=== PATIENT | female | born 1960 | race Caucasian/White ===

== ENCOUNTER 2024-11-17 14:49 | Inpatient (IN) | payer OTHER, SELFPAY ==
[~2024-11-17] VITALS: Ht 170.2 cm; Wt 66.3 kg
[2024-11-17 15:00] VITALS: PULSE 128; RESP 22; O2SAT 91
--- NOTE | 2024-11-17 15:06 | ED.PDOC ---
SOB-HPI HPI Comments 63y F who presents to the ED via EMS for chief compliant of shortness of breath. Per EMS, pt was at urgent care and came for complaint of shorntess of breath and had vitals checked and noted 02 sat at80% and pt was placed on 4 L via nc and pt sat hannah of 94% and EMS was called to the scene. Pt now in the ED, noted pt has BP of 170/100 and hear rate of 120. Pt states she is having associated cough but otherwise denies any other complaints. Pt denies any other symptoms at this time. 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 all 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 Family History Family History: Family hx of heart amrita Social History Smoker: Cigarettes Alcohol: Occasionally Drugs: Denies Drug Use Lives In: Home Constitutional: denies: chills, diaphoresis, fatigue, fever, malaise, sweats, weakness, others EENTM: denies: blurred vision, double vision, ear bleeding, ear discharge, ear drainage, ear pain, ear ringing, eye pain, eye redness, hearing loss, mouth pain, mouth swelling, nasal discharge, nose bleeding, nose congestion, nose pain, photophobia, tearing, throat pain, throat swelling, voice changes, others Respiratory: reports: cough, shortness of breath; denies: hemoptysis, ortho pnea, SOB at rest, SOB with excertion, stridor, wheezing, others Cardiovascular: denies: chest pain, dizzy spells, diaphoresis, Dyspnea on exertion, edema, irregular heart beat, left arm pain, lightheadedness, palpitations, PND, syncope, others Gastrointestinal: denies: abdomen distended, abdominal pain, blood streaked bowels, constipated, diarrhea, dysphagia, difficulty swallowing, hematemesis, melena, nausea, poor appetite, poor fluid intake, rectal bleeding, rectal pain, vomiting, others Genitourinary: denies: abnormal vagina bleeding, burning, dyspareunia, dysuria, flank pain, frequency, hematuria, incontinence, pain, , vagina discharge, urgency, others Neurological: denies: dizziness, fainting, headache, left sided numbness, left sided weakness, numbness, paresthesia, pre-existing deficit, right sided numbness, right sided weakness, seizure, speech problems, tingling, tremors, weakness, others Musculoskeletal: denies: back pain, gout, joint pain, joint swelling, muscle pain, muscle stiffness, neck pain, others Integumetry: denies: bruises, change in color, change in hair/nails, dryness, laceration, lesions, lumps, rash, wounds, others Allergic/Immunocompromised: denies: Difficulty Healing, Frequent Infections, Hives, Itching, others Hematologic/Lymphatic: denies: anemia, blood clots, easy bleeding, easy bruising, swollen glands, others Endocrine: denies: excessive hunger, excessive sweating, excessive thirst, excessive urination, flushing, intolerance to cold, intolerance to heat, unexplained weight gain, unexplained weight loss, others Psychiatric: denies: anxiety, bipolar disorder, depression, hopeless, panic disorder, schizophrenia, sleepless, suicidal, others All Other Systems: Reviewed and Negative Physical Exam General Appearance: Moderate Distress HEENT: Normal ENT Inspection, Pharynx Normal, TMs Normal Neck: Full Range of Motion, Non-Tender, Normal, Normal Inspection Respiratory: Chest Non-Tender, Decreased Breath Sounds, No Accessory Muscle Use, Respiratory Distress, Wheezing Cardiovascular: No Edema, No JVD, No Murmur, No Gallop, Tachycardia Breast Exam: Deferred Gastrointestinal: No Organomegaly, Non Tender, No Pulsatile Mass, Normal Bowel Sounds, Soft Genitalia: Deferred Pelvic: Deferred Rectal: Deferred Extremities: No calf tenderness, Normal capillary refill, Normal inspection, Normal range of motion, Non-tender, No pedal edema Musculoskeletal : Apperance: Normal Neurologic: Alert, retail office manager II-XII nml as Tested, Motor Weakness, Normal Affect, Normal Mood, No Sensory Deficits Cerebellar Function: Normal Reflexes: Normal Skin: Dry, Normal Color, Warm Lymphatic: No Adenopathy EKG EKG : Pulse Rate (adult): 123 [place]: RAD Cardiac Rhythm: ST Block: None Hypertrophy: LAE ST: Normal Was a procedure done? Was a procedure done?: No Differential Dx Differential Diagnosis: Bronchitis, COPD, Hypertension, Myocardial infarction, Pneumonia, Pulmonary Embolism, Respiratory Distress, URI Comments COVID, Influenza A and B X-Ray, Labs, Meds, VS Vital Signs Date Time Temp Pulse Resp B/P (MAP) Pulse Ox O2 Delivery O2 Flow Rate FiO2 11/17/24 17:40 18 91 Nasal Cannula* 3 32 11/17/24 16:00 99.3 117 17 153/88 (109) 92 99.3 11/17/24 16:00 118 11/17/24 15:06 123 11/17/24 15:04 93 Nasal Cannula* 3 32 11/17/24 15:00 128 22 91 Nasal Cannula* 2 28 11/17/24 15:00 99.3 128 22 179/96 (123) 91 99.3 11/17/24 14:58 123 11/17/24 14:53 97.6 120 26 150/89 (109) 92 97.6 Lab Test 11/17/24 16:17 11/17/24 15:22 Range/Units Influenza Type A Antigen Negative Negative Influenza Type B Antigen Negative Negative SARS-CoV-2 Antigen (Rapid) Negative NEGATIVE White Blood Count 9.9 4.4-10.8 10^3/uL Red Blood Count 5.74 H 4.0-5.20 10^6/uL Hemoglobin 16.6 H 12.2-16.2 g/dL Hematocrit 51.1 H 36.0-46.0 % Mean Corpuscular Volume 89.0 80.0-100.0 fL Mean Corpuscular Hemoglobin 28.9 28.0-32.0 pg Mean Corpuscular Hemoglobin Concent 32.5 32.0-36.0 g/dL Red Cell Distribution Width 14.5 H 11.8-14.3 % Platelet Count 392 140-450 10^3/uL Mean Platelet Volume 7.2 6.9-10.8 fL Neutrophils (%) (Auto) 69.9 37.0-80.0 % Lymphocytes (%) (Auto) 17.7 10.0-50.0 % Monocytes (%) (Auto) 10.6 0.0-12.0 % Eosinophils (%) (Auto) 1.5 0.0-7.0 % Basophils (%) (Auto) 0.3 0.0-2.0 % Neutrophils # (Auto) 6.9 1.6-8.6 10 ^3/uL Lymphocytes # (Auto) 1.7 0.4-5.4 10 ^3/uL Monocytes # (Auto) 1.0 0-1.3 10 ^3/uL Eosinophils # (Auto) 0.2 0-0.8 10 ^3/uL Basophils # (Auto) 0 0-0.2 10 ^3/uL Nucleated Red Blood Cells 0.0 % D-Dimer, Quantitative 0.31 0.0-0.49 mg/L FEU Sodium Level 135 L 136-145 mmol/L Potassium Level 4.9 3.5-5.1 mmol/L Chloride Level 99 98-107 mmol/L Carbon Dioxide Level 31 20-31 mmol/L Anion Gap 5 5-15 Blood Urea Nitrogen 10 9-23 mg/dL Creatinine 0.65 0.550-1.02 mg/dL Glomerular Filtration Rate Calc 100 >90 mL/min BUN/Creatinine Ratio 15.4 10.0-20.0 Serum Glucose 100 74-106 mg/dL Calcium Level 11.3 H 8.7-10.4 mg/dL Troponin I High Sensitivity 22 </=34 ng/L B-Type Natriuretic Peptide 255.88 0-100 pg/mL Current Medications Medications (Trade) Dose Ordered Sig/Teena Route Start Time Stop Time Status Last Admin Methylprednisolone Sodium Succinate (Solu Medrol) 125 mg ONCE ONCE IV 11/17/24 15:00 11/17/24 15:01 DC 11/17/24 15:19 Acetaminophen (Tylenol Tablet) 650 mg ONCE ONCE PO 11/17/24 16:00 11/17/24 16:01 DC 11/17/24 16:08 Sodium Chloride 500 ml @ 500 mls/hr Q1H ONCE IV 11/17/24 17:45 11/17/24 18:44 DC 11/17/24 17:38 Levalbuterol HCl (Xopenex Medneb) 0.625 mg ONCE ONCE NEB 11/17/24 17:45 11/17/24 17:46 DC 11/17/24 18:00 Ipratropium [place] (Atrovent Medneb) 0.5 mg ONCE ONCE NEB 11/17/24 17:45 11/17/24 17:46 DC 11/17/24 18:00 EXAM: XY CHEST PORTABLE IMPRESSION: Mild reactive airways disease. The lungs are otherwise clear. The patient's CBC is within normal limits The chemistry panel is within normal limits The BNP is 255.88 The patient was given Solu-Medrol 125 mg IV push The patient was given acetaminophen 650 mg by mouth The patient was bolused with normal saline The patient was started on Xopenex as well as Atrovent for a breathing The patient is being admitted at this time The patient's diagnosis is acute respiratory failure with exacerbation of COPD The patient remains on oxygen nasal cannula. Images Reviewed?: Images reviewed and evaluated by me Time of 1ST Reevaluation: 15:35 Reevaluation 1ST: Unchanged Patient Education/Counseling: Diagnosis, Treatment Family Education/Counseling: No Family Present Departure 1 Departure Time of Disposition: 21:15 Impression: Primary Impression: Acute respiratory failure Qualified Codes: J96.00 - Acute respiratory failure, unspecified whether with hypoxia or hypercapnia Additional Impression: COPD exacerbation Disposition: ADMITTED INPATIENT Admit to: [facility] Condition: Fair Critical Care Note Critical Care Time?: Yes (45 min-critical care time only) Stability Stability form required: Yes Unstable for transfer: Telemetry monitoring (Telemetry monitoring required), ED Physician Assesment (Clinical assesment) Heart Score Heart Score: Heart Score Response (Comments) Value History Slightly Suspicious 0 EKG Normal 0 Age 45-64 1 Risk Factors No known risk factors 0 Troponin Normal limit 0 Total 1 I personally scribed for DEVIN WEAVER MD ([email or web address]) on 11/17/24 at 15:06. Electronically submitted by Kanika Ayala ([email or web address]). I personally scribed for DEVIN WEAVER MD ([email or web address]) on 11/17/24 at 17:00. Electronically submitted by Kanika Ayala ([email or web address]). DEVIN WEAVER MD Nov 17, 2024 15:06
[2024-11-17] MEDS: methylPREDNISolone SOD SUCC 125 MG/2 ML VL IV ONE (15:19)
--- NOTE | 2024-11-17 15:21 | DVH ---
EXAM: XY CHEST PORTABLE HISTORY: sob COMPARISON: None TECHNIQUE: Portable upright AP view of the chest was performed. FINDINGS: No pneumothorax, consolidative infiltrates, or pulmonary edema. There is mild central peribronchial t hickening. The heart is borderline enlarged. There are bilateral metallic nipple piercings. IMPRESSION: Mild reactive airways disease. The lungs are otherwise clear.
[2024-11-17 15:45] LABS: Basophils # (auto) 0 10 ^3/uL (0-0.2); Basophils % (auto) 0.3 % (0.0-2.0); Eosinophils # (auto) 0.2 10 ^3/uL (0-0.8); Eosinophils % (auto) 1.5 % (0.0-7.0); Hematocrit 51.1 % (36.0-46.0); Hemoglobin 16.6 g/dL (12.2-16.2); Lymphocytes # (auto) 1.7 10 ^3/uL (0.4-5.4); Lymphocytes % (auto) 17.7 % (10.0-50.0); Mean Corpuscular Hemoglobin 28.9 pg (28.0-32.0); Mean Corpuscular Hgb Conc. 32.5 g/dL (32.0-36.0); Monocytes % (auto) 10.6 % (0.0-12.0); Neutrophils # (auto) 6.9 10 ^3/uL (1.6-8.6); Neutrophils % (auto) 69.9 % (37.0-80.0); Platelet Count (auto) 392 10^3/uL (140-450); Red Blood Cells 5.74 10^6/uL (4.0-5.20); Red Cell Distribution Width 14.5 % (11.8-14.3); White Blood Cell 9.9 10^3/uL (4.4-10.8)
[2024-11-17 16:01] LABS: Chloride 99 mmol/L (98-107); Potassium 4.9 mmol/L (3.5-5.1)
[2024-11-17 16:02] LABS: Anion Gap 5 (5-15)
[2024-11-17 16:03] LABS: Calcium 11.3 mg/dL (8.7-10.4); Carbon Dioxide 31 mmol/L (20-31); Sodium 135 mmol/L (136-145)
[2024-11-17 16:07] LABS: BUN/Creatinine Ratio 15.4 (10.0-20.0); Blood Urea Nitrogen 10 mg/dL (9-23); Glucose 100 mg/dL (74-106)
[2024-11-17] MEDS: ACETAMINOPHEN 325 MG TAB PO ONE (16:08)
[2024-11-17 17:05] LABS: COVID19 ANTIGEN SOFIA FIA NEGATIVE (NEGATIVE); Rapid Influenza A Negative (Negative); Rapid Influenza B Negative (Negative)
[2024-11-17] MEDS: SODIUM CHLORIDE 0.9% 500 ML IV ONE (17:38)
--- NOTE | 2024-11-17 17:40 | ECG ---
[facility] Test Date: 2024-11-17 Test Time: 14:55:20 Pat Name: LIBERTY HUYNH Department: ED Room: 0215T Gender: F Service Aide: KASIE : 1960 Requested By: DEVIN WEAVER Order Number: [id number] Reading MD: Theodore Zimmerman Measurements Intervals [place] Rate: 123 P: 78 NV: 150 QRS: 91 QRSD: 94 T: 54 QT: 322 QTc: 461 Interpretive Statements Sinus tachycardia Left atrial enlargement Right axis deviation Minimal ST elevation, lateral leads Electronically Signed On 11-18-2024 9:34:54 PDT by Theodore Zimmerman Please click the below link to view image of tracing.
[2024-11-17] MEDS: LEVALBUTEROL HCL 1.25 MG/3 ML NEB NEB ONE (18:00)
[2024-11-17] MEDS: IPRATROPIUM BROM 0.5 MG/2.5ML INH SOL NEB ONE (18:00)
[2024-11-17] MEDS ORDERED: MORPHINE SULFATE 4 MG/ML SYR/VIAL IV PRN (18:15)
[2024-11-17] MEDS ORDERED: DOCUSATE SOD 100 MG CAP PO PRN (18:15)
[2024-11-17] MEDS ORDERED: NITROGLYCERIN 0.4 MG SL TAB SL PRN (18:15)
[2024-11-17] MEDS ORDERED: ONDANSETRON HCL 4 MG/2 ML VIAL IV PRN (18:15)
[2024-11-17 18:18] VITALS: BP 153/88; PULSE 117; RESP 18; TEMP 99.3; O2SAT 91
[2024-11-17] MEDS: SODIUM CHLORIDE 0.9% 1,000 ML IV SCH (18:46)
[2024-11-17] MEDS: FOLIC ACID 1 MG TAB PO ONE (18:51)
[2024-11-17] MEDS: MULTIPLE VITAMIN TAB PO ONE (18:51)
[2024-11-17] MEDS: THIAMINE HCL 100 MG TAB PO ONE (18:51)
[2024-11-17] MEDS: NICOTINE 21MG/24 HR TOPICAL PATCH TD ONE (18:52)
[2024-11-17] MEDS: ENOXAPARIN SOD 40 MG/0.4 ML SYRINGE SC SCH (18:52)
[2024-11-17 19:03] LABS: Blood Alcohol < 3.0 mg/dL (<10)
[2024-11-17 19:35] VITALS: PULSE 120; RESP 18; O2SAT 91
--- NOTE | 2024-11-17 21:19 | DVHHP2 ---
History of Present Illness Reason for Visit: sob History of Present Illness 63-year-old female with a history of tonsillectomy and migraines presents to the ED with progressive shortness of breath over the past two months, now worsening significantly. Over the past few days, she reports increased weakness and a worsening nighttime cough. She was brought in by paramedics due to shortness of breath and was found to be hypoxic to 80% on room air. Placed on 4L nasal cannula with improvement. She denies chest pain or hemoptysis. Reports smoking two packs per day since age 19 and currently drinks 34 beers daily, which she began after her two years ago. She is attempting to reduce her smoking. ED Data Reviewed: O2 Sat: 80% on RA ? improved on 4L NC Tachycardia: HR 128 BP: Elevated CBC: WBC 13.5 CMP/BMP: Unremarkable Chest X- ray: Reactive airway disease, no signs of CHF Troponin: Negative COVID/Flu: Negative (if done) D-dimer: negative Smoking & Alcohol History: 2ppd, EtOH 34 beers daily. will admit and consult pt pulmonary Dr. Chow. Past Medical History See HPI above Past Surgical History See HPI above Family History Reviewed, non-contributory to the management of this case. Past Social History The patient lives at home, denies smoking, alcohol or illicit drugs abuse. Review of Systems Constitutional: No: Fever, Chills, Sweats, Weakness, Malaise, Other Eyes: No: Pain, Vision change, Conjunctivae inflammation, Eyelid inflammation, Other, Redness ENT: No: Ear pain, Ear discharge, Nose pain, Nose discharge, Nose congestion, Mouth pain, Mouth swelling, Throat pain, Throat swelling, Other Respiratory: Shortness of breath, SOB with excertion, Wheezing; No: Cough, Dry, Hemoptysis, Pleuritic Pain, Sputum, Wheezing, Other Cardiovascular: No: Chest Pain, Palpitations, Orthopnea, Paroxysmal Noc. Dyspnea, Edema, Lt Headedness, Other Gastrointestinal: No: Nausea, Vomiting, Abdominal Pain, Diarrhea, Constipation, Melena, Hematochezia, Other Genitourinary: No Dysuria, No Frequency, No Incontinence, No Hematuria, No Retention, No Other Musculoskeletal: No: other, neck pain, shoulder pain, arm pain, back pain, hand pain, leg pain, foot pain Skin: No: Rash, Lesions, Jaundice, Bruising, Other Neurological: No: Weakness, Numbness, Incoordination, Change in speech, Confusion, Seizures, Other Allergies: Coded Allergies: Aspirin (Verified Allergy, Severe, 11/17/24) Naproxen (Verified Allergy, Severe, 11/17/24) Medications Current Medications Medications Dose Ordered Sig/Teena Route Start Time Stop Time Status Last Admin Dose Admin Sodium Chloride 1,000 ml @ 100 mls/hr Q10H IV 11/17/24 18:15 11/17/24 18:46 100 MLS/HR Ondansetron HCl 4 mg Q4HP PRN IV 11/17/24 18:15 Docusate Sodium 100 mg BIDPRN PRN PO 11/17/24 18:15 Morphine Sulfate 2 mg Q4HPRN PRN IV 11/17/24 18:15 Enoxaparin Sodium 40 mg DAILY@1800 SC 11/17/24 18:15 11/17/24 18:52 40 MG Nitroglycerin 0.4 mg Q5MINP PRN SL 11/17/24 18:15 Methylprednisolone Sodium Succinate 60 mg Q8HR IV 11/17/24 22:00 Thiamine HCl 100 mg DAILY PO 11/18/24 10:00 Folic Acid 1 mg DAILY PO 11/18/24 10:00 Multivitamins 1 tab DAILY PO 11/18/24 10:00 Lorazepam 1 mg Q2HPRN PRN IV 11/17/24 18:15 Levalbuterol HCl 0.625 mg Q4HR NEB 11/17/24 22:00 Ipratropium [place] 0.5 mg Q4HR NEB 11/17/24 22:00 Nicotine 1 patch DAILY@1800 TD 11/18/24 18:00 Exam Vital Signs Vital Signs Date Time Temp Pulse Resp B/P (MAP) Pulse Ox O2 Delivery O2 Flow Rate FiO2 11/17/24 20:00 123 11/17/24 18:18 99.3 18 153/88 91 3.0 99.3 11/17/24 17:40 Nasal Cannula* 32 General Appearance: Alert, Oriented X3, mild distress HEENT: Atraumatic, PERRLA, EOMI, Mucous membr. moist/pink Respiratory: Other (Diminished lung sounds throughout) Cardiovascular: Regular rate, Normal S1, Normal S2, No murmurs Abdominal: Normal bowel sounds, Soft, No tenderness, No hepatospenomegaly, No masses Extremities: No clubbing, No cyanosis, No edema, Normal pulses, No tenderness/swelling Skin: No rashes, No breakdown, No significant lesion Neuro: Other (Neuro nonfocal) Psych/Mental Status: Mental status NL, Mood NL Labs/Xrays Chest x-ray shows reactive airway disease I reviewed labs, imaging CT scan abdomen pelvis, EKG and all diagnostic studies on this patient from ED records and the medical chart Labs Test 11/17/24 18:33 11/17/24 16:17 11/17/24 15:22 Range/Units Magnesium Level 2.0 1.6-2.6 mg/dL Plasma/Serum Blood Alcohol < 3.0 <10 mg/dL Influenza Type A Antigen Negative Negative Influenza Type B Antigen Negative Negative SARS-CoV-2 Antigen (Rapid) Negative NEGATIVE White Blood Count 9.9 4.4-10.8 10^3/uL Red Blood Count 5.74 H 4.0-5.20 10^6/uL Hemoglobin 16.6 H 12.2-16.2 g/dL Hematocrit 51.1 H 36.0-46.0 % Mean Corpuscular Volume 89.0 80.0-100.0 fL Mean Corpuscular Hemoglobin 28.9 28.0-32.0 pg Mean Corpuscular Hemoglobin Concent 32.5 32.0-36.0 g/dL Red Cell Distribution Width 14.5 H 11.8-14.3 % Platelet Count 392 140-450 10^3/uL Mean Platelet Volume 7.2 6.9-10.8 fL Neutrophils (%) (Auto) 69.9 37.0-80.0 % Lymphocytes (%) (Auto) 17.7 10.0-50.0 % Monocytes (%) (Auto) 10.6 0.0-12.0 % Eosinophils (%) (Auto) 1.5 0.0-7.0 % Basophils (%) (Auto) 0.3 0.0-2.0 % Neutrophils # (Auto) 6.9 1.6-8.6 10 ^3/uL Lymphocytes # (Auto) 1.7 0.4-5.4 10 ^3/uL Monocytes # (Auto) 1.0 0-1.3 10 ^3/uL Eosinophils # (Auto) 0.2 0-0.8 10 ^3/uL Basophils # (Auto) 0 0-0.2 10 ^3/uL Nucleated Red Blood Cells 0.0 % D-Dimer, Quantitative 0.31 0.0-0.49 mg/L FEU Sodium Level 135 L 136-145 mmol/L Potassium Level 4.9 3.5-5.1 mmol/L Chloride Level 99 98-107 mmol/L Carbon Dioxide Level 31 20-31 mmol/L Anion Gap 5 5-15 Blood Urea Nitrogen 10 9-23 mg/dL Creatinine 0.65 0.550-1.02 mg/dL Glomerular Filtration Rate Calc 100 >90 mL/min BUN/Creatinine Ratio 15.4 10.0-20.0 Serum Glucose 100 74-106 mg/dL Calcium Level 11.3 H 8.7-10.4 mg/dL Troponin I High Sensitivity 22 </=34 ng/L B-Type Natriuretic Peptide 255.88 0-100 pg/mL Assessment/Plan Assessment/Plan 63 yr old female Hypoxia with suspected new COPD exacerbation. Tachycardia and respiratory distress requiring oxygen supplementation. Monitor for alcohol withdrawal. acute new onset COPD exacerbation with hypoxia cxr shows reactive airway disease no pna Admit to telemetry for oxygen support and respiratory monitoring Start nebulizer treatments: xopenex/Ipratropium Q4hr Start steroids: IV Solu-Medrol atc transition to PO prednisone Consult Pulmonology (Dr. Chow) Incentive spirometry 02 to keep sats >92% can consider bipap prn consider abg if hypoxic acute onset elevated bp without dx of htn ordered hydralazine prn consider oral agent if continued elevated Tobacco use disorder Encourage cessation Provide nicotine patch Offer smoking cessation counseling Alcohol use disorder At risk for alcohol withdrawal CIWA protocol if needed ordered Multivitamins, thiamine, folate Consider Librium PRN if withdrawal begins acute Tachycardia Likely secondary to respiratory distress Monitor vitals closely Consider beta-tania if persistent and symptomatic Migraine history Monitor for headache triggers during hospitalization Continue home meds if applicable chronic smoking enc abstinence pt agreed to nicotine patch FEN / PPx Fluids: IV fluids as needed for hydration Electrolytes: Monitor BMP Nutrition: Regular diet as tolerated DVT Prophylaxis: SCDs GI Prophylaxis: PPI since on steriods protonix Disposition: Admit to telemetry for COPD exacerbation with hypoxia a Plan discussed with: Patient My Orders Orders - SYD IGLESIAS DNP Procedure Category Date Status Time Admit ADMIT 11/17/24 Transmitted 18:06 Allergies SELWYN 11/17/24 In Process 18:06 Code Status CODE 11/17/24 Transmitted 18:06 Sodium Chloride 0.9% PHA 11/17/24 In Process 18:15 Ondansetron Hcl PHA 11/17/24 In Process (Zofran) 18:15 Docusate Sodium PHA 11/17/24 In Process Capsule (Colace 18:15 Complete Blood Count LAB 11/18/24 Verified 04:00 Comprehensive LAB 11/18/24 Verified Metabolic Panel 04:00 Condition: Stable SELWYN 11/17/24 In Process 18:06 BRP SELWYN 11/17/24 In Process 18:06 Sequential SELWYN 11/17/24 In Process Compression Device Enoxaparin Sodium PHA 11/17/24 In Process (Lovenox) 18:15 Nitroglycerin PHA 11/17/24 In Process Sublingual (Ntrostat 18:15 Stat Ekg For Chest SELWYN 11/17/24 In Process Pain 18:06 Notify Of Changes SELWYN 11/17/24 In Process From Base 18:06 Mechanical Systems Control Engineer For SELWYN 11/17/24 In Process 24 Hours 18:06 Emergency Dysrhythmia SELWYN 11/17/24 In Process Protocol 18:06 Rhythm Strips Once SELWYN 11/17/24 In Process Every Shift 18:06 Oxygen By Nasal RT 11/17/24 Transmitted Cannula 18:06 Echo 2d Mode Cardiac US 11/17/24 Logged DOP 18:06 Drug Screen LAB 11/17/24 Logged 18:06 Urinalysis LAB 11/17/24 Logged 18:06 Thiamine Tab PHA 11/18/24 In Process 10:00 Folic Acid Tablet PHA 11/18/24 In Process 10:00 Multiple Vitamin PHA 11/18/24 In Process Tablet (Mvi Tab) 10:00 Lorazepam 2mg/Ml Inj PHA 11/17/24 In Process (Ativan Inj) 18:15 Etoh Withdrawal SELWYN 11/17/24 In Process Assessment 18:06 Etoh Withdrawal SELWYN 11/17/24 In Process Assessment 18:06 Levalbuterol Hcl PHA 11/17/24 In Process (Xopenex Medneb) 22:00 Ipratropium Medneb PHA 11/17/24 In Process (Atrovent Medneb) 22:00 Nicotine 21mg/24hr PHA 6/5/25 In Process (Nicoderm 21mg/24hr) 18:00 *Consult CONS 11/17/24 Transmitted / 18:06 Methylprednisolone PHA 11/17/24 In Process Sod Succ (Solu Medrol 22:00 Morphine Sulfate PHA 11/17/24 In Process Injection 18:15 Cardiac DIET 11/18/24 Transmitted Diet-2gna,Lofat,Lochol Breakfast Date of Service: Nov 17, 2024 Billing Provider: SYD IGLESIAS DNP Common Visit Codes: [id number] INP/OBS CARE (HIGH) SYD IGLESIAS DNP Nov 17, 2024 21:19
--- NOTE | 2024-11-17 21:21 | DVHINCON2 ---
Date of service: Nov 17, 2024 Referring Physician Hafsa Castro NP Reason for Consultation Acute hypoxic respiratory failure and COPD exacerbation History of Present Illness A 63-year-old woman with past medical history of migraines, nicotine dependence and ETOH use, who presents to the ED today via EMS with c/o progressive shortness of breath over the past 2 months, currently worsening significantly. Over the past few days, pt has had increased weakness and a worsening nighttime cough. She was found to be hypoxic to 80% on room air on presentation, was placed on 4L nasal cannula with improvement. She denied chest pain or hemoptysis. Pt smokes 2 PPD and drinks 3-4 beers daily; reports she is attempting to reduce smoking. ED Data: O2 Sat: 80% on RA ? improved on 4L NC. Tachycardia: HR 128. BP: Savi vated. CBC: WBC 13.5 CMP/BMP: Unremarkable. Chest X-ray: Reactive airway disease, no signs of CHF. Troponin: Negative. COVID/Flu: Negative (if done). D-dimer: negative Patient was admitted for further care. and pulmonary consultation is requested for evaluation and management of acute hypoxic respiratory failure and COPD exacerbation. Review of Systems: 14-point review of systems negative unless otherwise noted above. Past Medical History: Migraines Past Surgical History: Tonsillectomy Medications: Reviewed. Allergies: Aspirin and naproxen. Family History: Family history of heart disease Social History: Smoker. Smokes two packs per day since age 19 Alcohol: Currently drinks 3-4 beers daily, which she began after her two years ago. No illicit drug use. Allergies: Coded Allergies: Aspirin (Verified Allergy, Severe, 11/17/24) Naproxen (Verified Allergy, Severe, 11/17/24) Current Medications Current Medications Medications (Trade) Dose Ordered Sig/Teena Route PRN Reason Start Time Stop Time Status Last Admin Sodium Chloride 1,000 ml @ 100 mls/hr Q10H IV 11/17/24 18:15 11/17/24 18:46 Ondansetron HCl (Zofran) 4 mg Q4HP PRN IV NAUSEA / VOMITING 11/17/24 18:15 Docusate Sodium (Colace Capsule) 100 mg BIDPRN PRN PO FOR CONSTIPATION 11/17/24 18:15 Morphine Sulfate 2 mg Q4HPRN PRN IV SEVERE PAIN (7-10 PAIN SCALE) 11/17/24 18:15 Enoxaparin Sodium (Lovenox) 40 mg DAILY@1800 SC 11/17/24 18:15 11/17/24 18:52 Nitroglycerin (Ntrostat Sublingual) 0.4 mg Q5MINP PRN SL FOR CHEST PAIN 11/17/24 18:15 Methylprednisolone Sodium Succinate (Solu Medrol) 60 mg Q8HR IV 11/17/24 22:00 Thiamine HCl 100 mg DAILY PO 11/18/24 10:00 Folic Acid 1 mg DAILY PO 11/18/24 10:00 Multivitamins (Mvi Tab) 1 tab DAILY PO 11/18/24 10:00 Lorazepam (Ativan Inj) 1 mg Q2HPRN PRN IV ETOH-SEE PROTOCOL 11/17/24 18:15 Levalbuterol HCl (Xopenex Medneb) 0.625 mg Q4HR NEB 11/17/24 22:00 Ipratropium [place] (Atrovent Medneb) 0.5 mg Q4HR NEB 11/17/24 22:00 Nicotine (Nicoderm 21MG/ 24HR) 1 patch DAILY@1800 TD 11/18/24 18:00 Vital Signs Vital Signs Date Time Temp Pulse Resp B/P (MAP) Pulse Ox O2 Delivery O2 Flow Rate FiO2 11/17/24 20:00 123 11/17/24 18:18 99.3 18 153/88 91 3.0 99.3 11/17/24 17:40 Nasal Cannula* 32 Physical Exam Gen.: Patient lying in bed in no apparent distress. On supplemental oxygen. Head: Normocephalic, atraumatic. Eyes: EOMI/PERRLA. Ears: Normal hearing. Normal anatomy. Neck/trachea: Trachea midline, supple. Nose: Normal external anatomy. Mouth: Moist mucous membranes. Chest: Decreased air entry bilaterally. No wheezing or rhonchi. Cardiovascular: Positive S1, positive S2. Regular rate and rhythm. Abdomen: Positive bowel sounds in all 4 quadrants. Soft, non-tender, non- distended. : Deferred. Rectal: Deferred. Skin: Warm, dry. Intact. Extremities: 2+ radial pulses bilaterally. No lower extremity edema. Neuro: Awake, alert, oriented x3. No gross motor or sensory deficits. Cranial nerves II through XII intact. Gait not assessed. Labs/Diagnostic Data Labs Test 11/17/24 18:33 11/17/24 16:17 11/17/24 15:22 Range/Units Magnesium Level 2.0 1.6-2.6 mg/dL Plasma/Serum Blood Alcohol < 3.0 <10 mg/dL Influenza Type A Antigen Negative Negative Influenza Type B Antigen Negative Negative SARS-CoV-2 Antigen (Rapid) Negative NEGATIVE White Blood Count 9.9 4.4-10.8 10^3/uL Red Blood Count 5.74 H 4.0-5.20 10^6/uL Hemoglobin 16.6 H 12.2-16.2 g/dL Hematocrit 51.1 H 36.0-46.0 % Mean Corpuscular Volume 89.0 80.0-100.0 fL Mean Corpuscular Hemoglobin 28.9 28.0-32.0 pg Mean Corpuscular Hemoglobin Concent 32.5 32.0-36.0 g/dL Red Cell Distribution Width 14.5 H 11.8-14.3 % Platelet Count 392 140-450 10^3/uL Mean Platelet Volume 7.2 6.9-10.8 fL Neutrophils (%) (Auto) 69.9 37.0-80.0 % Lymphocytes (%) (Auto) 17.7 10.0-50.0 % Monocytes (%) (Auto) 10.6 0.0-12.0 % Eosinophils (%) (Auto) 1.5 0.0-7.0 % Basophils (%) (Auto) 0.3 0.0-2.0 % Neutrophils # (Auto) 6.9 1.6-8.6 10 ^3/uL Lymphocytes # (Auto) 1.7 0.4-5.4 10 ^3/uL Monocytes # (Auto) 1.0 0-1.3 10 ^3/uL Eosinophils # (Auto) 0.2 0-0.8 10 ^3/uL Basophils # (Auto) 0 0-0.2 10 ^3/uL Nucleated Red Blood Cells 0.0 % D-Dimer, Quantitative 0.31 0.0-0.49 mg/L FEU Sodium Level 135 L 136-145 mmol/L Potassium Level 4.9 3.5-5.1 mmol/L Chloride Level 99 98-107 mmol/L Carbon Dioxide Level 31 20-31 mmol/L Anion Gap 5 5-15 Blood Urea Nitrogen 10 9-23 mg/dL Creatinine 0.65 0.550-1.02 mg/dL Glomerular Filtration Rate Calc 100 >90 mL/min BUN/Creatinine Ratio 15.4 10.0-20.0 Serum Glucose 100 74-106 mg/dL Calcium Level 11.3 H 8.7-10.4 mg/dL Troponin I High Sensitivity 22 </=34 ng/L B-Type Natriuretic Peptide 255.88 0-100 pg/mL Assessment Impression: Acute hypoxic respiratory failure 2/2 AE COPD COPD exacerbation Acute tachycardia Nicotine abuse ETOH abuse 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 Chest x-ray reviewed, findings c/w mild reactive airways disease. Continue bronchodilators. IV steroids Incentive spirometry Vitamin supplementation Blood pressure control Monitor renal function. Monitor electrolytes. Supplement as necessary. Monitor ins and outs. Smoking cessation discussed for greater than 10 minutes GI/DVT prophylaxis. Prognosis: Guarded given patient's multiple co-morbidities. Rest of plan per hospitalist and other consultants. Thank you, TRISHA Castro, for allowing me to participate in this patient's care. Further recommendations will depend on the patient's clinical course. Please do not hesitate to contact me if you have any questions or concerns. This medical document was created using an electronic medical record system with [employer] dictation system. Although these documentations are being carefully reviewed, there may still be some phonetic and typographical changes. The errors are purely typographical, due to imperfection on the software program, and do not reflect any compromise in the patient's medical care. Plan discussed with: Patient, Other (RN/TRISHA Castro/) PAUL WHALEY MD Nov 17, 2024 21:21
[2024-11-17 22:01] VITALS: PULSE 114; PULSE 116; RESP 20; RESP 22; O2SAT 96; O2SAT 98
[2024-11-17] MEDS: LEVALBUTEROL HCL 1.25 MG/3 ML NEB NEB SCH (22:01)
[2024-11-17] MEDS: IPRATROPIUM BROM 0.5 MG/2.5ML INH SOL NEB SCH (22:01)
[2024-11-17] MEDS: methylPREDNISolone SOD SUCC 40 MG/ML VL IV SCH (22:06)
[2024-11-17 22:22] VITALS: BP 153/79; PULSE 116; RESP 24; TEMP 98.6; O2SAT 91
[2024-11-17 22:40] VITALS: PULSE 113; RESP 20; O2SAT 94
[2024-11-18] VITALS (19 sets, daily range): BP systolic 120–155; BP diastolic 65–85; PULSE 106–127; RESP 16–20; TEMP 97.6–98.4; O2SAT 93–99
[2024-11-18 06:36] LABS: Alanine Aminotransferase 17 U/L (7-40); Albumin 4.3 g/dL (3.2-4.8); Alkaline Phosphatase 108 U/L (46-116); Anion Gap 4 (5-15); Aspartate Aminotransferase 19 U/L (13-40); BUN/Creatinine Ratio 9.1 (10.0-20.0); Calcium 10.3 mg/dL (8.7-10.4); Chloride 99 mmol/L (98-107); Total Protein 6.8 g/dL (5.7-8.2)
[2024-11-18 06:37] LABS: Bilirubin, Total 0.7 mg/dL (0.2-1.0)
[2024-11-18 06:40] LABS: Basophils # (auto) 0 10 ^3/uL (0-0.2); Basophils % (auto) 0.1 % (0.0-2.0); Eosinophils # (auto) 0 10 ^3/uL (0-0.8); Hematocrit 50.9 % (36.0-46.0); Hemoglobin 16.9 g/dL (12.2-16.2); Lymphocytes # (auto) 0.6 10 ^3/uL (0.4-5.4); Lymphocytes % (auto) 7.2 % (10.0-50.0); Mean Corpuscular Hemoglobin 29.7 pg (28.0-32.0); Mean Corpuscular Hgb Conc. 33.2 g/dL (32.0-36.0); Mean Corpuscular Volume 89.4 fL (80.0-100.0); Monocytes # (auto) 0.1 10 ^3/uL (0-1.3); Monocytes % (auto) 1.2 % (0.0-12.0); Neutrophils # (auto) 7.6 10 ^3/uL (1.6-8.6); Neutrophils % (auto) 91.5 % (37.0-80.0); Nucleated Red Blood Cells % 0.2 %; Platelet Count (auto) 348 10^3/uL (140-450); White Blood Cell 8.3 10^3/uL (4.4-10.8)
[2024-11-18 07:38] LABS: Sodium 135 mmol/L (136-145)
[2024-11-18 07:41] LABS: Carbon Dioxide 32 mmol/L (20-31); Potassium 5.8 mmol/L (3.5-5.1)
[2024-11-18 07:42] LABS: Blood Urea Nitrogen 6 mg/dL (9-23); Glucose 146 mg/dL (74-106)
[2024-11-18] MEDS: CALCIUM GLUC 1,000mg/50ml-NS 50 ML IV ONE (08:54)
[2024-11-18] MEDS: SODIUM BICARB 8.4% 50Meq/50ml SYR INJ IV ONE (08:54)
[2024-11-18] MEDS: DEXTROSE (50%) 50ML SYRG IV ONE (08:54)
[2024-11-18] MEDS: THIAMINE HCL 100 MG TAB PO SCH (08:55)
[2024-11-18] MEDS: FOLIC ACID 1 MG TAB PO SCH (08:55)
[2024-11-18] MEDS: MULTIPLE VITAMIN TAB PO SCH (08:55)
[2024-11-18] MEDS: InsuLIN REG 1unit/0.01ml Soln (100units/ml) IV ONE (09:19)
[2024-11-18] MEDS: ALBUTEROL SULF 2.5 MG/0.5ML(0.5%) NEB SOLN NEB ONE (09:45)
[2024-11-18 10:50] LABS: Urine Bacteria None Seen /hpf (None Seen)
[2024-11-18 11:00] LABS: Urine Blood Negative /uL (Negative); Urine Clarity Clear (Clear); Urine Color Yellow (Yellow); Urine Hyaline Cast FEW /lpf (0 - 2); Urine Mucus FEW (None Seen); Urine Protein, UAD 2+ (Negative); Urine Specific Gravity 1.024 (1.001-1.035); Urine Squamous Epithelial Cell FEW /hpf (<5); Urine Urobilinogen Normal (Negative); Urine WBC 1 /HPF (0-5)
[2024-11-18 11:19] LABS: Amphetamine Screen, Urine Pos (NEGATIVE); Barbiturate Scree,Urine Neg (NEGATIVE); Benzodiazephine Screen, Urine Neg (NEGATIVE); Cannabinoid Screen, Urine Neg (NEGATIVE); Cocaine Screen, Urine Neg (NEGATIVE); Opiate Scree,Urine Neg (NEGATIVE); Phencyclidine Screen, Urine Neg (NEGATIVE)
[2024-11-18] MEDS: dilTIAZem 120MG ER CAP PO SCH (15:39)
--- NOTE | 2024-11-18 15:51 | DVHSR ---
APPROVED REPORT EXAM: Two-dimensional and M-mode echocardiogram with Doppler and color Doppler. Blood Pressure: 141/68 mmHg INDICATION eval for cardiac function and ef RISK FACTORS Height: 5'7, Weight: 135 DIMENSIONS LVDd4.4 (3.8-5.7cm)LA (2D)3.5 (1.9-4.0cm)Aortic Root3.4 (2.0-3.7cm) LVDs3.5 (2.5-4.0cm)LA (MM) (1.9-4.0cm)Aortic Cusp Exc1.9 (1.5-2.0cm) EF (%) 50.0 (55-70%)Rt. Atrium3.6 (1.9-4.0cm)Asc. Aorta cm IVSd0.8 (0.7-1.1cm)RV (D)3.4 (1.8-2.4cm) PWd0.9 (0.7-1.1cm) Mitral Valve MitralMitral Stenosis E wavem/sMV Mean GR.6mmHg A wavem/sMV Peak GR.16mmHg E/A ratio0.02D MVAcm2 Aortic Valve Aortic ValveAortic Stenosis V11.48m/Sridevi Mean GR.8mmHg V21.85m/Sridevi Peak GR.14mmHg LVOT Diameter2.0 (1.8-2.4cm)Doppler AVA2.51cm2 Pulmonic Valve V20.83m/s Tricuspid Valve TR Velocity3.27m/s [id number] Other Information Quality : Technically LimitedRhythm : Technically limited study due to pt HR high.patient position.body habitus. Conclusion lvef 70% by visual estimate normal rv function left atrium enlarged mitral stenosis moderate, correlate to echo tachycardia during study pulm htn noted, clinical correlate
--- NOTE | 2024-11-18 16:17 | DVHPN2 ---
Subjective Patient continues to report having shortness of breath and some heaviness in her chest Reviewed: Care Plan, H&P, Labs, Medications Changes from previous H/P or p: No Changes General: Per HPI Eyes: No Pain, No Vision change, No Conjunctivae inflammation, No Eyelid inflammation, No Other, No Redness ENT: No Ear pain, No Ear discharge, No Nose pain, No Nose discharge, No Nose congestion, No Mouth pain, No Mouth swelling, No Throat pain, No Throat swelling, No Other Cardiovascular: No Chest Pain, No Palpitations, No Orthopnea, No Paroxysmal Noc. Dyspnea, No Edema, No Lt Headedness, No Other Respiratory: No Cough, No Dry; Shortness of breath, SOB with excertion, W heezing; No Hemoptysis, No Pleuritic Pain, No Sputum, No Other Gastrointestinal: No Nausea, No Vomiting, No Abdominal Pain, No Diarrhea, No Constipation, No Melena, No Hematochezia, No Other Genitourinary: No Dysuria, No Frequency, No Incontinence, No Hematuria, No Retention, No Other Musculoskeletal: No other, No neck pain, No shoulder pain, No arm pain, No back pain, No hand pain, No leg pain, No foot pain Skin: No Rash, No Lesions, No Jaundice, No Bruising, No Other Objective Vitals Vital Signs Date Time Temp Pulse Resp B/P (MAP) Pulse Ox O2 Delivery O2 Flow Rate FiO2 11/18/24 15:39 119 123/68 11/18/24 14:28 18 99 11/18/24 13:00 98.3 98.3 11/18/24 07:55 Nasal Cannula* 2 28 Intake/Output Intake and Output 11/18/24 07:00 Intake Total 740 ml Balance 740 ml Intake Oral 240 ml IV Total 500 ml # Voids 1 General Appearance: Alert, Oriented X3, Cooperative, No acute distress, mild distress HEENT: Atraumatic, PERRLA Lungs: Clear to auscultation, Normal air movement Cardiovascular: Normal S1, Normal S2, Other (Sinus tachycardia) Abdomen: Normal bowel sounds, Soft, No tenderness, No hepatospenomegaly, No masses Musculoskeletal: Normal sensory function, Normal motor function Skin: Dry, Intact Psych/Mental Status: Mental status NL, Mood NL Medications Current Medications Medications Dose Ordered Sig/Teena Route Start Time Stop Time Status Last Admin Dose Admin Sodium Chloride 1,000 ml @ 100 mls/hr Q10H IV 11/17/24 18:15 11/18/24 04:15 100 MLS/HR Ondansetron HCl 4 mg Q4HP PRN IV 11/17/24 18:15 Docusate Sodium 100 mg BIDPRN PRN PO 11/17/24 18:15 Morphine Sulfate 2 mg Q4HPRN PRN IV 11/17/24 18:15 Enoxaparin Sodium 40 mg DAILY@1800 SC 11/17/24 18:15 11/17/24 18:52 40 MG Nitroglycerin 0.4 mg Q5MINP PRN SL 11/17/24 18:15 Methylprednisolone Sodium Succinate 60 mg Q8HR IV 11/17/24 22:00 11/18/24 15:40 60 MG Lorazepam 1 mg Q2HPRN PRN IV 11/17/24 18:15 Levalbuterol HCl 0.625 mg Q4HR NEB 11/17/24 22:00 11/18/24 14:19 0.625 MG Ipratropium [place] 0.5 mg Q4HR NEB 11/17/24 22:00 11/18/24 14:18 0.5 MG Nicotine 1 patch DAILY@1800 TD 11/18/24 18:00 Diltiazem HCl 120 mg DAILY PO 11/18/24 14:00 11/18/24 15:39 120 MG Folic Acid 1 mg/ Multivitamins 10 ml/Magnesium Sulfate 8 meq/ Thiamine HCl 100 mg/Dextrose 1,013.2 ml @ 125.001 mls/hr DAILY@1800 INJ 11/18/24 18:00 11/20/24 02:07 UNV Laboratory Results Laboratory Tests 11/18/24 04:59 11/18/24 13:08 Chemistry Test 11/17/24 18:33 11/18/24 04:59 Magnesium Level 2.0 mg/dL (1.6-2.6) Albumin 4.3 g/dL (3.2-4.8) Calcium Level 10.3 mg/dL (8.7-10.4) Total Protein 6.8 g/dL (5.7-8.2) LFT Test 11/18/24 04:59 Alanine Aminotransferase (ALT) 17 U/L (7-40) Alkaline Phosphatase 108 U/L (46-116) Aspartate Amino Transferase (AST) 19 U/L (13-40) Total Bilirubin 0.7 mg/dL (0.2-1.0) Urinalysis Test 11/18/24 10:37 Urine Color Yellow (Yellow) Urine Clarity Clear (Clear) Urine pH 6.0 (5.0-9.0) Urine Specific [place] 1.024 (1.001-1.035) Urine Protein 2+ (Negative) H Urine Ketones Negative (Negative) Urine Blood Negative /uL (Negative) Urine Nitrite Negative (Negative) Urine Bilirubin Negative (Negative) Urine Urobilinogen Normal mg/dL (Negative) Urine Leukocyte Esterase Negative /uL (Negative) Urine RBC 1 /hpf (0 - 4) Urine Microscopic WBC 1 /HPF (0-5) Urine Squamous Epithelial Cells Few /hpf (<5) Urine Bacteria None seen /hpf (None Seen) Urine Hyaline Casts Few /lpf (0 - 2) Urine Mucus Few (None Seen) Urine Glucose 4+ mg/dL (Normal) H Labs and/or images reviewed: Labs reviewed by me, Image(s) reviewed by me Assessment/Plan Assessment/Plan Impression: -acute alcohol and substance abuse withdrawal -COPD with exacerbation -acute hypoxic respiratory failure -nicotine dependence -hyperkalemia Plan: -patient continues to be tachycardic, anxious. Start Librium p.o. q.6 hours -nicotine patch -continue bronchodilators -potassium lowering agents -O2 supplementation to keep saturation greater than 92% -repeat labs, chest x-ray in a.m. -[facility] protocol Total time spent with patient discussing and formulating plan of care: 35 minutes. This medical document was created using an electronic medical record system with [employer] dictation system. Although this document has been carefully reviewed, there may still be some phonetic and typographical errors. These areas are purely typographical due to imperfections of the software programs, and do not reflect any compromise in the patient's medical care. Plan discussed with: Patient, Other (RN) My Orders Orders - JEFF QUINN STRIP MACHINE TENDER Procedure Category Date Status Time Diltiazem Er Capsule PHA 11/18/24 In Process (Cardizem Er Capsul 14:00 Folic Acid... PHA 11/18/24 Logged 18:00 Chlordiazepoxide Hcl PHA 11/18/24 Verified Capsule (Librium Ca 18:00 Basic Metabolic Panel LAB 11/19/24 Verified 04:00 Complete Blood Count LAB 11/19/24 Verified 04:00 Chest Portable XY 11/19/24 Verified 04:00 Azithromycin Tablet PHA 11/19/24 Verified (Zithromax Tablet) 10:00 Date of Service: Nov 18, 2024 Billing Provider: JEFF QUINN NP Common Visit Codes: [id number] INP/OBS CARE(HIGH) JEFF QUINN NP Nov 18, 2024 16:17
[2024-11-18] MEDS: AZITHROMYCIN 250 MG TAB PO SCH (17:47)
[2024-11-18] MEDS: chlordiazePOXIDE HCL 5 MG CAP PO SCH (17:47)
[2024-11-18] MEDS: NICOTINE 21MG/24 HR TOPICAL PATCH TD SCH (17:48)
[2024-11-18] MEDS: FOLIC ACID 1 MG, MULTIPLE VITAMIN 10 ML, MAGNESIUM SULF SDV 50% 8 MEQ, THIAMINE INJ 100... INJ SCH (19:09)
[2024-11-18] MEDS: LORazepam 2MG/ML-1ML VIAL IV PRN (20:36)
--- NOTE | 2024-11-18 23:24 | DVHPN2 ---
Progress Note - Dictate Date Seen: Nov 18, 2024 Medical Necessity Reason Pt with a Central, PICC or Fol: No Subjective Patient seen and examined at bedside. Remains on supplemental oxygen Overnight events reviewed. vital signs Vital Sign Date Time Temp Pulse Resp B/P (MAP) Pulse Ox O2 Delivery O2 Flow Rate FiO2 11/18/24 21:53 115 16 97 11/18/24 21:47 Nasal Cannula 4.0 11/18/24 21:47 36 11/18/24 21:00 97.9 142/72 (95) 97.9 Total Intake and Output 11/17/24 11/17/24 11/18/24 15:00 23:00 07:00 Intake Total 500 ml 240 ml Balance 500 ml 240 ml medications Current Medications Medications Dose Ordered Sig/Teena Route Start Time Stop Time Status Last Admin Dose Admin Ondansetron HCl 4 mg Q4HP PRN IV 11/17/24 18:15 Docusate Sodium 100 mg BIDPRN PRN PO 11/17/24 18:15 Morphine Sulfate 2 mg Q4HPRN PRN IV 11/17/24 18:15 Enoxaparin Sodium 40 mg DAILY@1800 SC 11/17/24 18:15 11/18/24 17:47 40 MG Nitroglycerin 0.4 mg Q5MINP PRN SL 11/17/24 18:15 Methylprednisolone Sodium Succinate 60 mg Q8HR IV 11/17/24 22:00 11/18/24 21:32 60 MG Lorazepam 1 mg Q2HPRN PRN IV 11/17/24 18:15 11/18/24 20:36 1 MG Levalbuterol HCl 0.625 mg Q4HR NEB 11/17/24 22:00 11/18/24 21:47 0.625 MG Ipratropium [place] 0.5 mg Q4HR NEB 11/17/24 22:00 11/18/24 21:47 0.5 MG Nicotine 1 patch DAILY@1800 TD 11/18/24 18:00 11/18/24 17:48 1 PATCH Diltiazem HCl 120 mg DAILY PO 11/18/24 14:00 11/18/24 15:39 120 MG Folic Acid 1 mg/ Multivitamins 10 ml/Magnesium Sulfate 8 meq/ Thiamine HCl 100 mg/Dextrose 1,013.2 ml @ 125.001 mls/hr DAILY@1800 INJ 11/18/24 18:00 11/20/24 02:07 11/18/24 19:09 125.001 MLS/HR Chlordiazepoxide HCl 10 mg QID PO 11/18/24 18:00 11/18/24 21:32 10 MG Azithromycin 500 mg DAILY PO 11/18/24 16:19 11/18/24 17:47 500 MG objective Gen.: Patient lying in bed in no apparent distress. On supplemental oxygen. Head: Normocephalic, atraumatic. Eyes: EOMI/PERRLA. Ears: Normal hearing. Normal anatomy. Neck/trachea: Trachea midline, supple. Nose: Normal external anatomy. Mouth: Moist mucous membranes. Chest: Decreased air entry bilaterally. No wheezing or rhonchi. Cardiovascular: Positive S1, positive S2. Regular rate and rhythm. Abdomen: Positive bowel sounds in all 4 quadrants. Soft, non-tender, non- distended. : Deferred. Rectal: Deferred. Skin: Warm, dry. Intact. Extremities: 2+ radial pulses bilaterally. No lower extremity edema. Neuro: Awake, alert, oriented x3. No gross motor or sensory deficits. Cranial nerves II through XII intact. Gait not assessed. 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 NRT - nicotine patch DVT prophylaxis Labs and imaging reviewed. Rest of plan as noted below. Plan: Supplemental oxygen Titrate to keep O2 sats above 92%. Chest x-ray on 11/17 showed findings c/w mild reactive airways disease. Continue bronchodilators. IV steroids Incentive spirometry Vitamin supplementation Blood pressure control Monitor renal function. Monitor electrolytes. Supplement as necessary. Monitor ins and outs. Smoking cessation discussed for greater than 10 minutes GI/DVT prophylaxis. Prognosis: Guarded given patient's multiple co-morbidities. Rest of plan per hospitalist and other consultants. Thank you, TRISHA Castro, for allowing me to participate in this patient's care. Further recommendations will depend on the patient's clinical course. Please do not hesitate to contact me if you have any questions or concerns. This medical document was created using an electronic medical record system with [employer] dictation system. Although these documentations are being carefully reviewed, there may still be some phonetic and typographical changes. The errors are purely typographical, due to imperfection on the software program, and do not reflect any compromise in the patient's medical care. Plan discussed with: Patient, Other (BELL Fuller) PAUL WHALEY MD Nov 18, 2024 23:24
[2024-11-19] VITALS (79 sets, daily range): BP systolic 102–180; BP diastolic 45–86; PULSE 73–115; RESP 16–28; TEMP 97.7–99.3; O2SAT 92–100
[2024-11-19 07:35] LABS: Basophils # (auto) 0 10 ^3/uL (0-0.2); Basophils % (auto) 0.1 % (0.0-2.0); Eosinophils # (auto) 0 10 ^3/uL (0-0.8); Hematocrit 48.6 % (36.0-46.0); Hemoglobin 15.2 g/dL (12.2-16.2); Lymphocytes # (auto) 0.4 10 ^3/uL (0.4-5.4); Mean Corpuscular Hemoglobin 28.6 pg (28.0-32.0); Mean Corpuscular Hgb Conc. 31.2 g/dL (32.0-36.0); Mean Corpuscular Volume 91.7 fL (80.0-100.0); Monocytes # (auto) 0.8 10 ^3/uL (0-1.3); Monocytes % (auto) 4.5 % (0.0-12.0); Neutrophils # (auto) 17.3 10 ^3/uL (1.6-8.6); Neutrophils % (auto) 93.4 % (37.0-80.0); Platelet Count (auto) 369 10^3/uL (140-450); Red Cell Distribution Width 14.8 % (11.8-14.3); White Blood Cell 18.5 10^3/uL (4.4-10.8)
[2024-11-19 07:56] LABS: Anion Gap 1 (5-15)
[2024-11-19 08:01] LABS: Blood Urea Nitrogen 12 mg/dL (9-23)
[2024-11-19] MEDS: ROCURONIUM 10MG/ML 10ML VIAL IV ONE ×2 (08:15→08:40)
[2024-11-19] MEDS: ETOMIDATE (2MG/ML) 20ML VIAL IV ONE ×2 (08:15→08:40)
[2024-11-19] MEDS ORDERED: NOREPINEPHRINE 8 MG/250ML KIT 250 ML IV SCH (08:15)
[2024-11-19] MEDS ORDERED: PROPOFOL 100 ML IV SCH (08:15)
--- NOTE | 2024-11-19 08:18 | ED.PDOC ---
SOB-HPI HPI Comments Called in from the ED, from emergent intubation to room 215B. 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 Was a procedure done?: Yes Sedation Sedation?: No Intubation Indication: Respiratory Insufficiency Prep: Preoxygenation Pretreated with: Sedation Medicated with: Other (20 mg Etomidate, 100mg Rocpure) Intubation Approach: Orotracheal Intubation size: cm (8.0) Informed consent obtained: Yes Risks/benefits/alt described: Yes Notes 22cm at the lips Differential Dx Differential Diagnosis: Respiratory Distress X-Ray, Labs, Meds, VS Vital Signs Date Time Temp Pulse Resp B/P (MAP) Pulse Ox O2 Delivery O2 Flow Rate FiO2 11/17/24 17:40 18 91 Nasal Cannula* 3 32 11/17/24 16:00 99.3 117 17 153/88 (109) 92 99.3 11/17/24 16:00 118 11/17/24 15:06 123 11/17/24 15:04 93 Nasal Cannula* 3 32 11/17/24 15:00 128 22 91 Nasal Cannula* 2 28 11/17/24 15:00 99.3 128 22 179/96 (123) 91 99.3 11/17/24 14:58 123 11/17/24 14:53 97.6 120 26 150/89 (109) 92 97.6 Lab Test 11/17/24 16:17 11/17/24 15:22 Range/Units Influenza Type A Antigen Negative Negative Influenza Type B Antigen Negative Negative SARS-CoV-2 Antigen (Rapid) Negative NEGATIVE White Blood Count 9.9 4.4-10.8 10^3/uL Red Blood Count 5.74 H 4.0-5.20 10^6/uL Hemoglobin 16.6 H 12.2-16.2 g/dL Hematocrit 51.1 H 36.0-46.0 % Mean Corpuscular Volume 89.0 80.0-100.0 fL Mean Corpuscular Hemoglobin 28.9 28.0-32.0 pg Mean Corpuscular Hemoglobin Concent 32.5 32.0-36.0 g/dL Red Cell Distribution Width 14.5 H 11.8-14.3 % Platelet Count 392 140-450 10^3/uL Mean Platelet Volume 7.2 6.9-10.8 fL Neutrophils (%) (Auto) 69.9 37.0-80.0 % Lymphocytes (%) (Auto) 17.7 10.0-50.0 % Monocytes (%) (Auto) 10.6 0.0-12.0 % Eosinophils (%) (Auto) 1.5 0.0-7.0 % Basophils (%) (Auto) 0.3 0.0-2.0 % Neutrophils # (Auto) 6.9 1.6-8.6 10 ^3/uL Lymphocytes # (Auto) 1.7 0.4-5.4 10 ^3/uL Monocytes # (Auto) 1.0 0-1.3 10 ^3/uL Eosinophils # (Auto) 0.2 0-0.8 10 ^3/uL Basophils # (Auto) 0 0-0.2 10 ^3/uL Nucleated Red Blood Cells 0.0 % D-Dimer, Quantitative 0.31 0.0-0.49 mg/L FEU Sodium Level 135 L 136-145 mmol/L Potassium Level 4.9 3.5-5.1 mmol/L Chloride Level 99 98-107 mmol/L Carbon Dioxide Level 31 20-31 mmol/L Anion Gap 5 5-15 Blood Urea Nitrogen 10 9-23 mg/dL Creatinine 0.65 0.550-1.02 mg/dL Glomerular Filtration Rate Calc 100 >90 mL/min BUN/Creatinine Ratio 15.4 10.0-20.0 Serum Glucose 100 74-106 mg/dL Calcium Level 11.3 H 8.7-10.4 mg/dL Troponin I High Sensitivity 22 </=34 ng/L B-Type Natriuretic Peptide 255.88 0-100 pg/mL I was called upstairs for emergent intubation. Patient was having difficulty breathing and was pale diaphoretic. Intubation was done by jack frame tender student. Successfully observed by myself. Using GlideScope 8 0 tube was placed successfully. Good color change. It was confirmed by chest x-ray. Patient was given rocuronium 100 mg IV and also etomidate 20 mg IV. Patient tolerated well. Time of 1ST Reevaluation: 09:42 Reevaluation 1ST: Unchanged Patient Education/Counseling: Diagnosis, Treatment Family Education/Counseling: No Family Present Departure 1 Departure Time of Disposition: 21:15 Impression: Primary Impression: Acute respiratory failure Qualified Codes: J96.00 - Acute respiratory failure, unspecified whether with hypoxia or hypercapnia Additional Impression: COPD exacerbation Disposition: 30 STILL A PATIENT Admit to: Tele Condition: Fair Critical Care Note Critical Care Time?: No Stability Stability form required: No Heart Score Heart Score: Heart Score Response (Comments) Value History N/A 0 EKG N/A 0 Age N/A 0 Risk Factors N/A 0 Troponin N/A 0 Total 0 I personally scribed for DARLEEN HERR MD ([email or web address]) on 11/19/24 at 08:18. Electronically submitted by Tatyana Bond ([email or web address]). I personally scribed for DARLEEN HERR MD ([email or web address]) on 11/19/24 at 18:01. Electronically submitted by Tatyana Bond ([email or web address]). DARLEEN HERR MD Nov 19, 2024 08:18
[2024-11-19 08:21] LABS: Calcium 11.1 mg/dL (8.7-10.4); Chloride 92 mmol/L (98-107); Glucose 154 mg/dL (74-106); Sodium 133 mmol/L (136-145)
[2024-11-19 08:23] LABS: Carbon Dioxide 40 mmol/L (20-31)
--- NOTE | 2024-11-19 08:24 | DVH ---
INDICATION: pna TECHNIQUE: Frontal view of the chest. COMPARISON: XY CHEST PORTABLE on DOS: 11/17/24 FINDINGS: Endotracheal tube 6 cm from the gurdeep. Nasogastric tube tip in the stomach. The heart and mediasti nal contours are grossly unremarkable. There is no evidence of pleural disease. Bibasilar airspace o pacities. The bony structures of the chest are intact without fracture. IMPRESSION: 1. Bibasilar airspace opacities. 2. Lines and tubes as above.
[2024-11-19] MEDS: MIDAZOLAM DRIP 50 mg/50mL 50 ML IV ONE (08:40)
[2024-11-19] MEDS: PROPOFOL 100 ML IV ONE (08:40)
[2024-11-19] MEDS: NOREPINEPHRINE 8 MG/250ML KIT 250 ML IV ONE (08:40)
[2024-11-19] MEDS: NOREPINEPHRINE 8 MG/250ML KIT 250 ML IV SCH (08:45)
[2024-11-19 08:47] LABS: Magnesium 2.6 mg/dL (1.6-2.6)
--- NOTE | 2024-11-19 08:55 | DVH ---
EXAM: CT HEAD WITHOUT CONTRAST HISTORY: r/o stroke COMPARISON: None TECHNIQUE: Axial images of the head were obtained and reformatted in coronal and sagittal planes. All CT scans at this medical facility are performed using dose modulation techniques as appropriate t o a performed exam including the following: Automated exposure control was utilized; adjustment of th e MA and/or KV according to patient size; and use of iterative reconstruction technique. CT Dose: CTDI volume is 50.3 mGy. Dose-length product is 806.52 mGy*cm FINDINGS: There is no evidence of acute intracranial hemorrhage, mass, mass effect midline shift. There is no h ydrocephalus or extra-axial fluid collection. Rojas-white matter differentiation is maintained. The visualized paranasal sinuses and mastoid air cells are clear. The calvarium is intact. IMPRESSION: 1. No acute intracranial process. HS:Y
[2024-11-19 09:48] LABS: Base Excess 7.7 mmol/L (-2.0-3.0)
--- NOTE | 2024-11-19 10:08 | RESUS ---
CODE ASSIST ASSESSSMENT Initial Information Code Assist Date: Nov 19, 2024 Code Assist Time: 07:35 Location of Arrest: [facility] Room # 215B Provider Name DR HERR AND DR CARDOZA AT BEDSIDE Time Notified: 07:35 Time PMD returned call: 07:35 Crash Cart Opened and Supplies: Yes Situation Staff concerned/worried, speci: SaO2 <90, Non-responsive, RR >28, Change LOC, Other (SBP 213) Situation comment: PRIMARY RN ALERTED HEALTH RECORD TECHNICIAN TO CHECK ON PATIENT Background Background: ADMITTED ON 11/17 FOR ACUTE RESPIRATORY FAILURE ON TELE FLOOR. PER PRIMARY RN CHANGE OF CONDITION SINCE YESTERDAY. Assessment Blood Pressure Systolic: 213 Blood Pressure Diastolic: 113 Respiratory Rate: 30 O2 Sat by Pulse Oximetry: 87 Bedside Blood Glucose: 231 Assessment comment: RT AT BEDSIDE GIVING BREATHING TREATMENT. PATIENT UNRESPONSIVE, AGONALLY BREATHING, BP 213/113, HR 116, SPO2 87% AND BILATERAL ARM REDNESS AND BILATERAL SKIN MOTTLING TO KNEES NOTED. RAPID RESPONSE CALLED AND ER PAGED OVER HEAD. Recommendations/Interventions Procedures: Accu check, CMP, CBC, EKG, Cardiac Monitoring, Inititate ACLS Protocol, Intubated, Bag Mask, O2 Mask/NC Other Interventions DR HERR ORDERED 20 MG OF ETOMIDATE IV ONCE GIVEN BY RN AT 0749 WELL 100 MG OF ROCURONIUM IV ONCE GIVEN BY RN AT 0750. EMS STUDENT INTUBATED AT 0753 SIZE 8.0/22 AT LIP. POST INTUBATION VS SPO2 93-97%, HR 132, BP 206/104. VENT ORDERS RECEIVED BY RT. ORDER FOR HEAD CT WITHOUT CONTRAST AND TRANSER TO ICU. VERSED/PROPOFOL DRIPS ORDERED ALONG WITH CXR, EKG, ABG, HESS, OGT. Outcome Outcome: Transfer to ICU (102) Team Members Team Members DR HERR, DR CARDOZA RESIDENT, KINGSTON Connell RNSTORE RECEIVING SPECIALIST, KAMALA Finn ICU PERMACULTURE CONTRACTOR, DINH Means PERMACULTURE CONTRACTOR MST, MIO Vasquez PERMACULTURE CONTRACTOR MST, TASIA FERNANDEZ RN, MACK RT, MEDIC STUDENT Kingston Bahena Nov 19, 2024 10:08
[2024-11-19] MEDS: MIDAZOLAM DRIP 50 mg/50mL 50 ML IV SCH (10:22)
[2024-11-19] MEDS: cefTRIAXone 1GM/50ML D5W 50 ML IV SCH (10:23)
[2024-11-19] MEDS: FUROSEMIDE 20 MG/2 ML VIAL IV ONE (10:29)
[2024-11-19] MEDS: AZITHROMYCIN 500MG/ 250ML 250 ML IV SCH (10:30)
[2024-11-19] MEDS: PANTOPRAZOLE 40 MG/10 ML VIAL INJ IV SCH (10:30)
[2024-11-19] MEDS ORDERED: ATROPINE SULF 1 MG/10ml SYR IV ONE (11:21)
[2024-11-19] MEDS: fentaNYL Drip 2500mCg/250mlNS 250 ML IV SCH (11:38)
[2024-11-19 12:00] LABS: Base Excess 7.9 mmol/L (-2.0-3.0)
[2024-11-19] MEDS: PROPOFOL 100 ML IV SCH (14:16)
[2024-11-19 17:55] LABS: INR 0.95 (0.9-1.15); Partial Thromboplastin Time 22.6 SEC (24.5-34.5); Prothrombin Time 10.1 sec (9.3-11.8)
--- NOTE | 2024-11-19 23:47 | DVHPN2 ---
Progress Note - Dictate Date Seen: Nov 19, 2024 Medical Necessity Reason Pt with a Central, PICC or Fol: No Subjective Patient seen and examined at bedside. Currently sedated, intubated on mechanical ventilator. Overnight events reviewed. vital signs Vital Sign Date Time Temp Pulse Resp B/P (MAP) Pulse Ox O2 Delivery O2 Flow Rate FiO2 11/19/24 22:06 101 20 122/57 (78) 98 30 11/19/24 21:46 Mechanical Ventilator+ 11/19/24 21:30 98.1 208.6 11/19/24 07:30 2 Total Intake and Output 11/18/24 11/18/24 11/19/24 15:00 23:00 07:00 Intake Total 520 ml 105 ml Balance 520 ml 105 ml medications Current Medications Medications Dose Ordered Sig/Teena Route Start Time Stop Time Status Last Admin Dose Admin Ondansetron HCl 4 mg Q4HP PRN IV 11/17/24 18:15 Docusate Sodium 100 mg BIDPRN PRN PO 11/17/24 18:15 Morphine Sulfate 2 mg Q4HPRN PRN IV 11/17/24 18:15 Enoxaparin Sodium 40 mg DAILY@1800 SC 11/17/24 18:15 11/19/24 18:44 40 MG Nitroglycerin 0.4 mg Q5MINP PRN SL 11/17/24 18:15 Methylprednisolone Sodium Succinate 60 mg Q8HR IV 11/17/24 22:00 11/19/24 21:07 60 MG Lorazepam 1 mg Q2HPRN PRN IV 11/17/24 18:15 11/19/24 06:01 1 MG Levalbuterol HCl 0.625 mg Q4HR NEB 11/17/24 22:00 11/19/24 22:06 0.625 MG Ipratropium [place] 0.5 mg Q4HR NEB 11/17/24 22:00 11/19/24 22:06 0.5 MG Nicotine 1 patch DAILY@1800 TD 11/18/24 18:00 11/19/24 18:03 1 PATCH Folic Acid 1 mg/ Multivitamins 10 ml/Magnesium Sulfate 8 meq/ Thiamine HCl 100 mg/Dextrose 1,013.2 ml @ 125.001 mls/hr DAILY@1800 INJ 11/18/24 18:00 11/20/24 02:07 11/19/24 18:42 125.001 MLS/HR Midazolam HCl 50 ml @ 1 mls/hr Q24H IV 11/19/24 08:15 11/19/24 21:07 10 MLS/HR Propofol 100 ml @ 1.896 mls/ hr Q24H IV 11/19/24 08:45 11/19/24 21:08 9.48 MLS/HR Fentanyl Citrate 250 ml @ 2.5 mls/hr Q24H IV 11/19/24 08:45 11/19/24 11:38 2.5 MLS/HR Norepinephrine Bitartrate 250 ml @ 3.75 mls/hr Q24H IV 11/19/24 08:45 Pantoprazole Sodium 40 mg DAILY IV 11/19/24 10:00 11/19/24 10:30 40 MG Azithromycin 250 ml @ 125 mls/hr DAILY IV 11/19/24 11:00 11/19/24 10:30 125 MLS/HR Ceftriaxone Sodium 50 ml @ 100 mls/hr DAILY@09 IV 11/19/24 09:58 11/19/24 10:23 100 MLS/HR objective Gen.: Patient lying in bed in medical ICU. Sedated, intubated on mechanical ventilator. Head: Normocephalic, atraumatic. Eyes: PERRLA. Ears: Normal external anatomy. Throat: Endotracheal tube and orogastric tube in place. Neck: Supple, trachea midline. Chest: Transmitted breath sounds bilaterally. Decreased air entry bilaterally. No wheezing. Bibasilar crackles. Cardiovascular: Positive S1, positive S2. Regular rate and rhythm. Abdomen: Positive bowel sounds in all 4 quadrants. Soft, nontender, nondistended. : Santoro in place. Normal external genitalia. Rectal: Deferred. Skin: Warm, dry. Intact. Extremities: 2+ radial pulses bilaterally. No lower extremity edema. Neuro: Sedated. 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 Devices in place. Bibasilar opacities. ABG reviewed, compensated. Chronic CO2 retention, PaCO2 of 53.[address] head demonstrates no evidence of intracranial hemorrhage or stroke. Off Levophed, hemodynamically stable Toxicology positive for methamphetamine Continue bronchodilators Continue IV steroids Continue antibiotics Banana bag. NRT - nicotine patch DVT prophylaxis Labs and imaging reviewed. Rest of plan as noted below. Plan: s/p intubation on mechanical ventilator. Vent settings; AC mode with RR 20, VT 500, PEEP 5, FiO2 50% Titrate FIO2 to keep O2 saturation above 90%. VAP bundle. Daily ABG and CXR while intubated Sedate for ventilator synchrony Pressors as necessary for hemodynamic support Titrate to keep mean arterial pressure greater than 65 mmHg Continue bronchodilators. IV steroids Continue antibiotics Vitamin supplementation Blood pressure control Monitor renal function. Monitor electrolytes. Supplement as necessary. Monitor ins and outs. Smoking cessation discussed for greater than 10 minutes GI/DVT prophylaxis. Prognosis: Guarded given patient's multiple co-morbidities. Condition: Critical Rest of plan per hospitalist and other consultants. A total of 35 minutes of critical care time was spent reviewing the patient record, examining the patient, making a diagnostic and therapeutic plan, discussing this plan with the medical personnel, following up on diagnostic studies and following the patient for clinical stability excluding any and all procedures. At least 50% of this time was spent in direct, [id number] contact. Thank you, TRISHA Castro, for allowing me to participate in this patient's care. Further recommendations will depend on the patient's clinical course. Please do not hesitate to contact me if you have any questions or concerns. This medical document was created using an electronic medical record system with [employer] dictation system. Although these documentations are being carefully reviewed, there may still be some phonetic and typographical changes. The errors are purely typographical, due to imperfection on the software program, and do not reflect any compromise in the patient's medical care. Dietary Evaluation Review Comments: 1) TF Jevity1.2 Isael @ 60ml/hr x 24 hr (goal). Start @ 20ml/hr, increase 10ml/hr Q4H until goal rate is reached. TF at goal volume provides 100% energy & protein needs - 1728 kcal, 80 gm protein, 1162 ml free water 2) Water flush 150ml Q6H if allowed 3) TPN if NPO>7 days 4) Monitor I/O, weight trend, lab values and skin integrity Expected Outcomes/Goals: To meet >75% estimated needs within days Fu 2-3 days Plan discussed with: Other (FACE WORKER) Critical Care Time(min): 35 PAUL WHALEY MD Nov 19, 2024 23:47
[2024-11-20] VITALS (105 sets, daily range): BP systolic 89–131; BP diastolic 35–59; PULSE 96–114; RESP 19–21; TEMP 97.5–98.8; O2SAT 94–100
[2024-11-20 03:58] LABS: Basophils # (auto) 0 10 ^3/uL (0-0.2); Eosinophils # (auto) 0 10 ^3/uL (0-0.8); Hematocrit 46.9 % (36.0-46.0); Hemoglobin 15.1 g/dL (12.2-16.2); Lymphocytes # (auto) 0.4 10 ^3/uL (0.4-5.4); Lymphocytes % (auto) 2.5 % (10.0-50.0); Mean Corpuscular Hgb Conc. 32.2 g/dL (32.0-36.0); Mean Corpuscular Volume 89.9 fL (80.0-100.0); Monocytes # (auto) 0.6 10 ^3/uL (0-1.3); Monocytes % (auto) 4.1 % (0.0-12.0); Neutrophils # (auto) 14.3 10 ^3/uL (1.6-8.6); Neutrophils % (auto) 93.4 % (37.0-80.0); Platelet Count (auto) 351 10^3/uL (140-450); Red Blood Cells 5.22 10^6/uL (4.0-5.20); Red Cell Distribution Width 14.4 % (11.8-14.3); White Blood Cell 15.4 10^3/uL (4.4-10.8)
[2024-11-20 04:07] LABS: Anion Gap 7 (5-15); Potassium 4.7 mmol/L (3.5-5.1)
[2024-11-20 04:11] LABS: Calcium 10.5 mg/dL (8.7-10.4); Carbon Dioxide 32 mmol/L (20-31); Chloride 90 mmol/L (98-107); Sodium 129 mmol/L (136-145)
[2024-11-20 04:13] LABS: BUN/Creatinine Ratio 22.7 (10.0-20.0); Blood Urea Nitrogen 20 mg/dL (9-23); Glucose 188 mg/dL (74-106); Magnesium 2.8 mg/dL (1.6-2.6)
--- NOTE | 2024-11-20 05:34 | DVH ---
INDICATION: pna TECHNIQUE: Frontal view of the chest. COMPARISON: XY CHEST PORTABLE on DOS: 11/19/24, XY CHEST PORTABLE on DOS: 11/17/24, XY CHEST PORTABLE on DOS: 11/19/24 FINDINGS: Endotracheal tube 6 cm from the gurdeep. Nasogastric tube tip in the stomach. The heart and mediasti nal contours are grossly unremarkable. There is no evidence of pleural disease. Bibasilar airspace o pacities. The bony structures of the chest are intact without fracture. IMPRESSION: 1. Bibasilar airspace opacities. 2. Lines and tubes as above.
[2024-11-20] MEDS: SODIUM CHLORIDE 0.9% 1,000 ML IV SCH (05:49)
[2024-11-20 06:23] LABS: Base Excess 4.6 mmol/L (-2.0-3.0)
[2024-11-20] MEDS: LIDOCAINE 1% (LOCAL ANESTH.) PF 5ml SDV ID ONE (08:30)
--- NOTE | 2024-11-20 08:54 | DVH ---
EXAM: XR Chest, 1 View CLINICAL INDICATION: PICC LINE PLACEMENT. TECHNIQUE: Frontal view of the chest. COMPARISON: XY CHEST PORTABLE on DOS: 11/20/24, XY CHEST PORTABLE on DOS: 11/19/24, XY CHEST PORTABLE o n DOS: 11/17/24 FINDINGS: LUNGS AND PLEURAL SPACES: Bibasilar atelectasis or pneumonia. HEART: Unremarkable. No cardiomegaly. MEDIASTINUM: Unremarkable. Normal mediastinal contour. BONES/JOINTS: Unremarkable. No acute fracture. TUBES, LINES AND DEVICES: Status post left-sided PICC line with distal tip in the mid SVC. No pneum othorax. The endotracheal tube (ETT) is in satisfactory position. OTHER FINDINGS: . . IMPRESSION: Bibasilar atelectasis or pneumonia.
[2024-11-20] MEDS: SODIUM CHLOR 0.9% PF (SALINE LOCK) 10ML VIAL/SYR IV SCH (09:29)
--- NOTE | 2024-11-20 10:09 | ECG ---
[facility] Test Date: 2024-11-19 Test Time: 07:44:01 Pat Name: LIBERTY HUYNH Department: Room: [address] [place] [address] A Gender: F Japanese Tutor: DELFIN : 1960 Requested By: JACOB BARAJAS Order Number: [id number] Reading MD: Theodore Zimmerman Measurements Intervals Rule Rate: 117 P: 81 [place]: 162 QRS: 92 QRSD: 101 T: 48 QT: 307 QTc: 429 Interpretive Statements Sinus tachycardia Biatrial enlargement Probable RVH w/ secondary repol abnormality ST elevation, consider lateral injury Baseline wander in lead(s) V4,V5,V6 Electronically Signed On 11-24-2024 20:12:26 PDT by Theodore Zimmerman Please click the below link to view image of tracing.
[2024-11-20] MEDS: NOREPINEPHRINE 8 MG/250ML KIT 250 ML IV SCH (12:30)
--- NOTE | 2024-11-20 13:41 | DVH ---
CLINICAL HISTORY: COLD EXTREMITIES WEAK PULSES WITH DISCOLORATION TECHNIQUE: Bilateral lower extremity arterial duplex exam was performed. Grayscale, color Doppler, an d spectral waveform analysis was performed. COMPARISON: None FINDINGS: Right Lower Extremity: Scattered atherosclerotic plaque. No focal stenosis or occlusion visualized. Biphasic waveforms in the dorsalis pedis artery. Otherwise triphasic waveforms throughout the rest o f the right lower extremity. Left Lower Extremity: Scattered atherosclerotic plaque. Biphasic waveforms of the dorsalis pedis art mikaela and anterior tibial artery. Otherwise monophasic waveforms throughout the left lower extremity. EXAMINATION DATA: RIGHT PSV (cm/sec) HARVESTING SUPERVISOR 178 Profunda 166 SFA Prox 129 SFA Mid 159 SFA Dist 167 POP A 94 SUPERVISOR FIREARMS 40 DPA 19 LEFT PSV (cm/sec) HARVESTING SUPERVISOR 209 Profunda 205 SFA Prox 144 SFA Mid 152 SFA Dist 144 POP A 156 SUPERVISOR FIREARMS 44 DPA 17 DANIELLE 23 IMPRESSION: 1. Abnormal biphasic waveforms throughout most of the left lower extremity, likely due to peripheral arterial disease. 2. No significant focal stenosis demonstrated in the right lower extremity.
--- NOTE | 2024-11-20 14:13 | DVH ---
BILATERAL Lower Extremity Arterial Duplex Date: 11/20/2024 10:31 AM Clinical History: COLD EXTREMITIES WEAK PULSES WITH DISCOLORATION Comparison: None Technique: US Bilat Upper Ext Art Duplex. Duplex Doppler evaluation including color Doppler and sp ectral/pulsed waveform analysis of the lower extremity arteries was performed. Finding: RIGHT: SUBCLAVIAN: 137 CM/S TRIPHASIC WAVEFORM AXILLARY: 126 CM/S TRIPHASIC WAVEFORM RADIAL: 120 cm/s triphasic waveform ULNAR: 97 cm/s; triphasic waveform Incidental finding of a noncompressible cephalic vein at the right forearm The waveforms are triphasic waveform LEFT: Peak systolic velocities are as follows: SUBCLAVIAN ARTERY: 155 cm/s triphasic waveform AXILLARY ARTERY: NOT VISIBLE DUE TO THE PRESENCE OF a PICC LINE. TECHNOLOGIST IS UNCLEAR TO WHETH ER THE PICC LINE IS IN THE AXILLARY VEIN AND OBSCURING OF THE ARTERY OR THE PICC LINE IS IN THE AXILL STEPHANY ARTERY BRACHIAL ARTERY: 81 cm/sec triphasic waveform RADIAL ARTERY: 30 cm/sec biphasic waveform ULNAR ARTERY: The waveforms are. REFERENCE VALUES, [facility]) vascular Imaging Lab Criteria: Peak systolic velocity ranges (in cm/sec) are as follows: <150 cm/s - <20 % stenosis 150-200 cm/s - 20-49% stenosis 200-300 cm/s - 50-75% stenosis >300 cm/s -> 75% stenosis IMPRESSION: 1. There is no evidence for peripheral vascular insufficiency in the right lower extremity. 2. There is no evidence for peripheral vascular insufficiency in the left lower extremity. 3. No significant focal stenosis is identified. 4. Incidental finding of the noncompressible vein in the right forearm this is a superficial venous t hrombus. 5. There is no arterial stenosis or occlusion in the left upper extremity. 6. Axillary artery is not well visualized due to the presence of the PICC line. The tank tester is un clear as to whether this was obscured because of artifact off the PICC line in the vein or PICC lines presence in the artery. However the technologist initials MH discussed it with Seema LUU
--- NOTE | 2024-11-20 16:51 | DVHPN2 ---
Subjective intubated and sedated Reviewed: Care Plan, H&P, Labs, Medications Changes from previous H/P or p: No Changes General: Per HPI Eyes: No Pain, No Vision change, No Conjunctivae inflammation, No Eyelid inflammation, No Other, No Redness ENT: No Ear pain, No Ear discharge, No Nose pain, No Nose discharge, No Nose congestion, No Mouth pain, No Mouth swelling, No Throat pain, No Throat swelling, No Other Cardiovascular: No Chest Pain, No Palpitations, No Orthopnea, No Paroxysmal Noc. Dyspnea, No Edema, No Lt Headedness, No Other Respiratory: No Cough, No Dry; Shortness of breath, SOB with excertion, W heezing; No Hemoptysis, No Pleuritic Pain, No Sputum, No Other Gastrointestinal: No Nausea, No Vomiting, No Abdominal Pain, No Diarrhea, No Constipation, No Melena, No Hematochezia, No Other Genitourinary: No Dysuria, No Frequency, No Incontinence, No Hematuria, No Retention, No Other Musculoskeletal: No other, No neck pain, No shoulder pain, No arm pain, No back pain, No hand pain, No leg pain, No foot pain Skin: No Rash, No Lesions, No Jaundice, No Bruising, No Other Objective Vitals Vital Signs Date Time Temp Pulse Resp B/P (MAP) Pulse Ox O2 Delivery O2 Flow Rate FiO2 11/20/24 16:20 100 20 103/45 (64) 96 30 11/20/24 16:15 97.7 207.9 11/20/24 16:00 Mechanical Ventilator+ 11/19/24 07:30 2 Intake/Output Intake and Output 11/20/24 07:00 Intake Total 1774.968 ml Output Total 1400 ml Balance 374.968 ml Intake Oral 0 ml IV Total 1774.968 ml Output Urine Total 1400 ml General Appearance: Other (sedated and intubated) HEENT: Atraumatic Cardiovascular: Normal S1, Normal S2 Abdomen: Normal bowel sounds, Soft Medications Current Medications Medications Dose Ordered Sig/Teena Route Start Time Stop Time Status Last Admin Dose Admin Ondansetron HCl 4 mg Q4HP PRN IV 11/17/24 18:15 Docusate Sodium 100 mg BIDPRN PRN PO 11/17/24 18:15 Morphine Sulfate 2 mg Q4HPRN PRN IV 11/17/24 18:15 Enoxaparin Sodium 40 mg DAILY@1800 SC 11/17/24 18:15 11/19/24 18:44 40 MG Nitroglycerin 0.4 mg Q5MINP PRN SL 11/17/24 18:15 Methylprednisolone Sodium Succinate 60 mg Q8HR IV 11/17/24 22:00 11/20/24 15:14 60 MG Lorazepam 1 mg Q2HPRN PRN IV 11/17/24 18:15 11/19/24 06:01 1 MG Levalbuterol HCl 0.625 mg Q4HR NEB 11/17/24 22:00 11/20/24 14:15 0.625 MG Ipratropium [place] 0.5 mg Q4HR NEB 11/17/24 22:00 11/20/24 14:15 0.5 MG Nicotine 1 patch DAILY@1800 TD 11/18/24 18:00 11/19/24 18:03 1 PATCH Midazolam HCl 50 ml @ 1 mls/hr Q24H IV 11/19/24 08:15 11/20/24 16:08 6 MLS/HR Propofol 100 ml @ 1.896 mls/ hr Q24H IV 11/19/24 08:45 11/20/24 09:33 3.792 MLS/HR Fentanyl Citrate 250 ml @ 2.5 mls/hr Q24H IV 11/19/24 08:45 11/20/24 14:21 7.5 MLS/HR Pantoprazole Sodium 40 mg DAILY IV 11/19/24 10:00 11/20/24 09:28 40 MG Azithromycin 250 ml @ 125 mls/hr DAILY IV 11/19/24 11:00 11/20/24 09:32 125 MLS/HR Ceftriaxone Sodium 50 ml @ 100 mls/hr DAILY@09 IV 11/19/24 09:58 11/20/24 09:33 100 MLS/HR Sodium Chloride 1,000 ml @ 100 mls/hr Q10H IV 11/20/24 05:45 11/20/24 16:08 100 MLS/HR Sodium Chloride 10 ml QSHIFT@10,22 IV 11/20/24 10:00 11/20/24 09:29 10 ML Norepinephrine Bitartrate 250 ml @ 1.875 mls/ hr Q24H IV 11/20/24 12:30 Laboratory Results Laboratory Tests 11/20/24 02:59 Chemistry Test 11/20/24 02:59 Calcium Level 10.5 mg/dL (8.7-10.4) H Magnesium Level 2.8 mg/dL (1.6-2.6) H Coagulation Test 11/19/24 17:22 Prothrombin Time 10.1 sec (9.3-11.8) Prothrombin Time INR 0.95 (0.9-1.15) Activated Partial Thromboplast Time 22.6 SEC (24.5-34.5) L Urinalysis Test 11/18/24 10:37 Urine Color Yellow (Yellow) Urine Clarity Clear (Clear) Urine pH 6.0 (5.0-9.0) Urine Specific Spur 1.024 (1.001-1.035) Urine Protein 2+ (Negative) H Urine Ketones Negative (Negative) Urine Blood Negative /uL (Negative) Urine Nitrite Negative (Negative) Urine Bilirubin Negative (Negative) Urine Urobilinogen Normal mg/dL (Negative) Urine Leukocyte Esterase Negative /uL (Negative) Urine RBC 1 /hpf (0 - 4) Urine Microscopic WBC 1 /HPF (0-5) Urine Squamous Epithelial Cells Few /hpf (<5) Urine Bacteria None seen /hpf (None Seen) Urine Hyaline Casts Few /lpf (0 - 2) Urine Mucus Few (None Seen) Urine Glucose 4+ mg/dL (Normal) H Blood Gas Results Test 11/20/24 06:17 Arterial Blood pH 7.464 (7.350-7.450) FiO2 % 30.0 Microbiology Microbiology Date/Time Source Procedure Growth Status 11/19/24 12:00 Nose MRSA Screen - Final Complete Assessment/Plan Assessment/Plan Acute hypoxic respiratory failure 2/2 AE COPD COPD exacerbation Acute tachycardia Nicotine abuse ETOH abuse Methamphetamine abuse Pulmonary hypertension - RVSP 43 mmHg, WHO Class II Mitral stenosis, moderate Got intubated on 11/19 CXR image and report reviewed. Devices in place. Bibasilar opacities. ABG reviewed, compensated. Chronic CO2 retention, PaCO2 of 53.[address] head demonstrates no evidence of intracranial hemorrhage or stroke. Off Levophed, hemodynamically stable Toxicology positive for methamphetamine Continue bronchodilators Continue IV steroids Continue antibiotics Banana bag. NRT - nicotine patch DVT prophylaxis Plan discussed with: Other (nurse) My Orders Orders - SHELBY TERAN MD Procedure Category Date Status Time Norepinephrine 8 PHA 11/20/24 In Process Mg/250ml Kit 12:30 Apply Z-Guard SELWYN 11/20/24 In Process 10:08 Date of Service: Nov 20, 2024 Billing Provider: SHELBY TERAN MD Common Visit Codes: [id number] C[facility] 30-74 MIN SHELBY TERAN MD Nov 20, 2024 16:51
--- NOTE | 2024-11-20 19:08 | DVHPN2 ---
Progress Note - Dictate Date Seen: Nov 20, 2024 Medical Necessity Reason Pt with a Central, PICC or Fol: No Subjective Patient seen and examined at bedside. Currently sedated, intubated on mechanical ventilator. Overnight events reviewed. vital signs Vital Sign Date Time Temp Pulse Resp B/P (MAP) Pulse Ox O2 Delivery O2 Flow Rate FiO2 11/20/24 18:45 98.2 100 20 131/56 (81) 98 208.8 11/20/24 18:13 30 11/20/24 18:00 Mechanical Ventilator+ 11/19/24 07:30 2 Total Intake and Output 11/19/24 11/19/24 11/20/24 15:00 23:00 07:00 Intake Total 350 ml 762.40 ml 662.568 ml Output Total 1000 ml 400 ml Balance 350 ml -237.60 ml 262.568 ml medications Current Medications Medications Dose Ordered Sig/Teena Route Start Time Stop Time Status Last Admin Dose Admin Ondansetron HCl 4 mg Q4HP PRN IV 11/17/24 18:15 Docusate Sodium 100 mg BIDPRN PRN PO 11/17/24 18:15 Morphine Sulfate 2 mg Q4HPRN PRN IV 11/17/24 18:15 Enoxaparin Sodium 40 mg DAILY@1800 SC 11/17/24 18:15 11/20/24 17:37 40 MG Nitroglycerin 0.4 mg Q5MINP PRN SL 11/17/24 18:15 Methylprednisolone Sodium Succinate 60 mg Q8HR IV 11/17/24 22:00 11/20/24 15:14 60 MG Lorazepam 1 mg Q2HPRN PRN IV 11/17/24 18:15 11/19/24 06:01 1 MG Levalbuterol HCl 0.625 mg Q4HR NEB 11/17/24 22:00 11/20/24 18:13 0.625 MG Ipratropium [place] 0.5 mg Q4HR NEB 11/17/24 22:00 11/20/24 18:13 0.5 MG Nicotine 1 patch DAILY@1800 TD 11/18/24 18:00 11/20/24 17:36 1 PATCH Midazolam HCl 50 ml @ 1 mls/hr Q24H IV 11/19/24 08:15 11/20/24 16:08 6 MLS/HR Propofol 100 ml @ 1.896 mls/ hr Q24H IV 11/19/24 08:45 11/20/24 09:33 3.792 MLS/HR Fentanyl Citrate 250 ml @ 2.5 mls/hr Q24H IV 11/19/24 08:45 11/20/24 14:21 7.5 MLS/HR Pantoprazole Sodium 40 mg DAILY IV 11/19/24 10:00 11/20/24 09:28 40 MG Azithromycin 250 ml @ 125 mls/hr DAILY IV 11/19/24 11:00 11/20/24 09:32 125 MLS/HR Ceftriaxone Sodium 50 ml @ 100 mls/hr DAILY@09 IV 11/19/24 09:58 11/20/24 09:33 100 MLS/HR Sodium Chloride 1,000 ml @ 100 mls/hr Q10H IV 11/20/24 05:45 11/20/24 16:08 100 MLS/HR Sodium Chloride 10 ml QSHIFT@10,22 IV 11/20/24 10:00 11/20/24 09:29 10 ML Norepinephrine Bitartrate 250 ml @ 1.875 mls/ hr Q24H IV 11/20/24 12:30 objective Gen.: Patient lying in bed in medical ICU. Sedated, intubated on mechanical ventilator. Head: Normocephalic, atraumatic. Eyes: PERRLA. Ears: Normal external anatomy. Throat: Endotracheal tube and orogastric tube in place. Neck: Supple, trachea midline. Chest: Transmitted breath sounds bilaterally. Decreased air entry bilaterally. No wheezing. Bibasilar crackles. Cardiovascular: Positive S1, positive S2. Regular rate and rhythm. Abdomen: Positive bowel sounds in all 4 quadrants. Soft, nontender, nondistended. : Santoro in place. Normal external genitalia. Rectal: Deferred. Skin: Warm, dry. Intact. Extremities: 2+ radial pulses bilaterally. No lower extremity edema. Neuro: Sedated. 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 Devices in place. Bibasilar atelectasis or pneumonia ABG reviewed, notable for alkalemia CT head demonstrates no evidence of intracranial hemorrhage or stroke. Pressors for hemodynamic support On Levophed 2 mcg/min Titrate to keep mean arterial pressure greater than 65 mmHg Toxicology positive for methamphetamine Continue bronchodilators Continue IV steroids Continue antibiotics IV fluids at 100 ml/hr. NRT - nicotine patch DVT prophylaxis Labs and imaging reviewed. Rest of plan as noted below. Plan: s/p intubation on mechanical ventilator. Vent settings; AC mode with RR 20, VT 500, PEEP 5, FiO2 30% Titrate FIO2 to keep O2 saturation above 90%. VAP bundle. Daily ABG and CXR while intubated Sedate for ventilator synchrony Pressors as necessary for hemodynamic support Titrate to keep mean arterial pressure greater than 65 mmHg Continue bronchodilators. IV steroids Continue antibiotics Vitamin supplementation Blood pressure control Monitor renal function. Monitor electrolytes. Supplement as necessary. Monitor ins and outs. Smoking cessation discussed for greater than 10 minutes GI/DVT prophylaxis. Prognosis: Guarded given patient's multiple co-morbidities. Condition: Critical Rest of plan per hospitalist and other consultants. A total of 35 minutes of critical care time was spent reviewing the patient record, examining the patient, making a diagnostic and therapeutic plan, discussing this plan with the medical personnel, following up on diagnostic studies and following the patient for clinical stability excluding any and all procedures. At least 50% of this time was spent in direct, [id number] contact. Thank you, TRISHA Castro, for allowing me to participate in this patient's care. Further recommendations will depend on the patient's clinical course. Please do not hesitate to contact me if you have any questions or concerns. This medical document was created using an electronic medical record system with [employer] system. Although these documentations are being carefully reviewed, there may still be some phonetic and typographical changes. The errors are purely typographical, due to imperfection on the software program, and do not reflect any compromise in the patient's medical care. Dietary Evaluation Review Comments: 1) TF Jevity1.2 Isael @ 60ml/hr x 24 hr (goal). Start @ 20ml/hr, increase 10ml/hr Q4H until goal rate is reached. TF at goal volume provides 100% energy & protein needs - 1728 kcal, 80 gm protein, 1162 ml free water 2) Water flush 150ml Q6H if allowed 3) TPN if NPO>7 days 4) Monitor I/O, weight trend, lab values and skin integrity Expected Outcomes/Goals: To meet >75% estimated needs within days Fu 2-3 days Plan discussed with: Other (BELL Recinos) Critical Care Time(min): 35 PAUL WHALEY MD Nov 20, 2024 19:08
[2024-11-21] VITALS (110 sets, daily range): BP systolic 96–150; BP diastolic 41–80; PULSE 80–110; RESP 6–25; TEMP 97.2–98.4; O2SAT 91–100
[2024-11-21] MEDS: DEXMEDETOMIDINE HCL IN D5W 100 ML IV SCH (00:54)
[2024-11-21 04:08] LABS: Basophils # (auto) 0 10 ^3/uL (0-0.2); Eosinophils # (auto) 0 10 ^3/uL (0-0.8); Hemoglobin 13.4 g/dL (12.2-16.2); Lymphocytes # (auto) 0.2 10 ^3/uL (0.4-5.4); Lymphocytes % (auto) 1.5 % (10.0-50.0); Mean Corpuscular Hemoglobin 28.9 pg (28.0-32.0); Mean Corpuscular Hgb Conc. 32.7 g/dL (32.0-36.0); Mean Corpuscular Volume 88.2 fL (80.0-100.0); Monocytes # (auto) 0.6 10 ^3/uL (0-1.3); Monocytes % (auto) 3.9 % (0.0-12.0); Neutrophils # (auto) 13.6 10 ^3/uL (1.6-8.6); Neutrophils % (auto) 94.6 % (37.0-80.0); Platelet Count (auto) 313 10^3/uL (140-450); Red Blood Cells 4.65 10^6/uL (4.0-5.20); Red Cell Distribution Width 14.2 % (11.8-14.3); White Blood Cell 14.4 10^3/uL (4.4-10.8)
[2024-11-21 04:17] LABS: Anion Gap 7 (5-15); Carbon Dioxide 30 mmol/L (20-31); Chloride 98 mmol/L (98-107); Potassium 3.6 mmol/L (3.5-5.1)
[2024-11-21 04:18] LABS: Calcium 8.8 mg/dL (8.7-10.4)
[2024-11-21 04:20] LABS: Sodium 135 mmol/L (136-145)
[2024-11-21 04:24] LABS: BUN/Creatinine Ratio 28.8 (10.0-20.0); Blood Urea Nitrogen 23 mg/dL (9-23); Magnesium 2.6 mg/dL (1.6-2.6)
[2024-11-21 04:25] LABS: Glucose 152 mg/dL (74-106)
--- NOTE | 2024-11-21 05:55 | DVH ---
CHEST RADIOGRAPH Indication: INTUBATION Technique: Single frontal view of the chest was obtained COMPARISON: XY CHEST PORTABLE on DOS: 11/20/24, XY CHEST PORTABLE on DOS: 11/20/24, XY CHEST PORTABLE on DOS: 11/19/24, XY CHEST PORTABLE on DOS: 11/17/24 FINDINGS: Lines and Tubes: Slight interval advancement of the endotracheal tube such that the tip now projects approximately 3.1 cm above the level of the gurdeep. Enteric catheter unchanged. Lungs: Clear Pleura: No effusion. No pneumothorax. Cardiomediastinal contours: Unremarkable Bones: Unremarkable IMPRESSION: 1. No acute disease. 2. Slight interval advancement of endotracheal tube as above. Enteric catheter unchanged.
[2024-11-21 07:44] LABS: Base Excess 3.7 mmol/L (-2.0-3.0)
--- NOTE | 2024-11-21 15:43 | MEDREC ---
[facility] Intervention Section I [facility] Intervention: Review courses of therapy (FOR COPD EXACERBATION PLEASE CONSIDER AZYTHROMYCIN FOR 3 TO 5 DAYS - D/C [id number] ) KYLE PRIETO PHARMACIST Nov 21, 2024 15:43
--- NOTE | 2024-11-21 18:37 | DVHPN2 ---
Subjective intubated and sedated Reviewed: Care Plan, H&P, Labs, Medications Changes from previous H/P or p: No Changes General: Per HPI Eyes: No Pain, No Vision change, No Conjunctivae inflammation, No Eyelid inflammation, No Other, No Redness ENT: No Ear pain, No Ear discharge, No Nose pain, No Nose discharge, No Nose congestion, No Mouth pain, No Mouth swelling, No Throat pain, No Throat swelling, No Other Cardiovascular: No Chest Pain, No Palpitations, No Orthopnea, No Paroxysmal Noc. Dyspnea, No Edema, No Lt Headedness, No Other Respiratory: No Cough, No Dry; Shortness of breath, SOB with excertion, W heezing; No Hemoptysis, No Pleuritic Pain, No Sputum, No Other Gastrointestinal: No Nausea, No Vomiting, No Abdominal Pain, No Diarrhea, No Constipation, No Melena, No Hematochezia, No Other Genitourinary: No Dysuria, No Frequency, No Incontinence, No Hematuria, No Retention, No Other Musculoskeletal: No other, No neck pain, No shoulder pain, No arm pain, No back pain, No hand pain, No leg pain, No foot pain Skin: No Rash, No Lesions, No Jaundice, No Bruising, No Other Objective Vitals Vital Signs Date Time Temp Pulse Resp B/P (MAP) Pulse Ox O2 Delivery O2 Flow Rate FiO2 11/21/24 17:30 94 16 132/59 (83) 96 11/21/24 16:40 30 11/21/24 16:00 Mechanical Ventilator+ 11/21/24 15:00 98.4 209.1 11/19/24 07:30 2 Intake/Output Intake and Output 11/21/24 07:00 Intake Total 2747.460 ml Output Total 1325 ml Balance 1422.460 ml Intake Oral 0 ml IV Total 2747.460 ml Output Urine Total 1325 ml General Appearance: Other (sedated and intubated) HEENT: Atraumatic Cardiovascular: Normal S1, Normal S2 Abdomen: Normal bowel sounds, Soft Medications Current Medications Medications Dose Ordered Sig/Teena Route Start Time Stop Time Status Last Admin Dose Admin Ondansetron HCl 4 mg Q4HP PRN IV 11/17/24 18:15 Docusate Sodium 100 mg BIDPRN PRN PO 11/17/24 18:15 Morphine Sulfate 2 mg Q4HPRN PRN IV 11/17/24 18:15 Enoxaparin Sodium 40 mg DAILY@1800 SC 11/17/24 18:15 11/21/24 17:32 40 MG Nitroglycerin 0.4 mg Q5MINP PRN SL 11/17/24 18:15 Methylprednisolone Sodium Succinate 60 mg Q8HR IV 11/17/24 22:00 11/21/24 13:42 60 MG Lorazepam 1 mg Q2HPRN PRN IV 11/17/24 18:15 11/19/24 06:01 1 MG Levalbuterol HCl 0.625 mg Q4HR NEB 11/17/24 22:00 11/21/24 18:16 0.625 MG Ipratropium [place] 0.5 mg Q4HR NEB 11/17/24 22:00 11/21/24 18:16 0.5 MG Nicotine 1 patch DAILY@1800 TD 11/18/24 18:00 11/21/24 17:32 1 PATCH Midazolam HCl 50 ml @ 1 mls/hr Q24H IV 11/19/24 08:15 11/20/24 16:08 6 MLS/HR Propofol 100 ml @ 1.896 mls/ hr Q24H IV 11/19/24 08:45 11/20/24 09:33 3.792 MLS/HR Fentanyl Citrate 250 ml @ 2.5 mls/hr Q24H IV 11/19/24 08:45 11/20/24 14:21 7.5 MLS/HR Pantoprazole Sodium 40 mg DAILY IV 11/19/24 10:00 11/21/24 10:36 40 MG Azithromycin 250 ml @ 125 mls/hr DAILY IV 11/19/24 11:00 11/21/24 10:36 125 MLS/HR Ceftriaxone Sodium 50 ml @ 100 mls/hr DAILY@09 IV 11/19/24 09:58 11/21/24 09:54 100 MLS/HR Sodium Chloride 1,000 ml @ 100 mls/hr Q10H IV 11/20/24 05:45 11/21/24 13:44 100 MLS/HR Sodium Chloride 10 ml QSHIFT@10,22 IV 11/20/24 10:00 11/21/24 10:00 10 ML Norepinephrine Bitartrate 250 ml @ 1.875 mls/ hr Q24H IV 11/20/24 12:30 Laboratory Results Laboratory Tests 11/21/24 03:00 Chemistry Test 11/21/24 03:00 Calcium Level 8.8 mg/dL (8.7-10.4) Magnesium Level 2.6 mg/dL (1.6-2.6) Urinalysis Test 11/18/24 10:37 Urine Color Yellow (Yellow) Urine Clarity Clear (Clear) Urine pH 6.0 (5.0-9.0) Urine Specific [place] 1.024 (1.001-1.035) Urine Protein 2+ (Negative) H Urine Ketones Negative (Negative) Urine Blood Negative /uL (Negative) Urine Nitrite Negative (Negative) Urine Bilirubin Negative (Negative) Urine Urobilinogen Normal mg/dL (Negative) Urine Leukocyte Esterase Negative /uL (Negative) Urine RBC 1 /hpf (0 - 4) Urine Microscopic WBC 1 /HPF (0-5) Urine Squamous Epithelial Cells Few /hpf (<5) Urine Bacteria None seen /hpf (None Seen) Urine Hyaline Casts Few /lpf (0 - 2) Urine Mucus Few (None Seen) Urine Glucose 4+ mg/dL (Normal) H Blood Gas Results Test 11/21/24 07:29 Arterial Blood pH 7.502 (7.350-7.450) FiO2 % 30.0 Microbiology Microbiology Date/Time Source Procedure Growth Status 11/19/24 12:00 Nose MRSA Screen - Final Complete Assessment/Plan Assessment/Plan Acute hypoxic respiratory failure 2/2 AE COPD COPD exacerbation Acute tachycardia Nicotine abuse ETOH abuse Methamphetamine abuse Pulmonary hypertension - RVSP 43 mmHg, WHO Class II Mitral stenosis, moderate Got intubated on 11/19 CXR image and report reviewed. Devices in place. Bibasilar opacities. ABG reviewed, compensated. Chronic CO2 retention, PaCO2 of 53.[address] head demonstrates no evidence of intracranial hemorrhage or stroke. Off Levophed, hemodynamically stable Toxicology positive for methamphetamine Continue bronchodilators Continue IV steroids Continue antibiotics Banana bag. NRT - nicotine patch DVT prophylaxis Plan discussed with: Patient Date of Service: Nov 21, 2024 Billing Provider: SHELBY TERAN MD Common Visit Codes: [id number] CARE 30-74 MIN SHELBY TERAN MD Nov 21, 2024 18:37
--- NOTE | 2024-11-21 20:05 | DVHPN2 ---
Progress Note - Dictate Date Seen: Nov 21, 2024 Medical Necessity Reason Pt with a Central, PICC or Fol: No Subjective Patient seen and examined at bedside. Remains sedated, intubated on mechanical ventilator. Overnight events reviewed. vital signs Vital Sign Date Time Temp Pulse Resp B/P (MAP) Pulse Ox O2 Delivery O2 Flow Rate FiO2 11/21/24 19:00 88 16 140/53 (82) 97 11/21/24 18:00 Mechanical Ventilator+ 30 30 11/21/24 15:00 98.4 209.1 11/19/24 07:30 2 Total Intake and Output 11/20/24 11/20/24 11/21/24 15:00 23:00 07:00 Intake Total 1201.5 ml 865.875 ml 680.085 ml Output Total 950 ml 375 ml Balance 1201.5 ml -84.125 ml 305.085 ml medications Current Medications Medications Dose Ordered Sig/Teena Route Start Time Stop Time Status Last Admin Dose Admin Ondansetron HCl 4 mg Q4HP PRN IV 11/17/24 18:15 Docusate Sodium 100 mg BIDPRN PRN PO 11/17/24 18:15 Morphine Sulfate 2 mg Q4HPRN PRN IV 11/17/24 18:15 Enoxaparin Sodium 40 mg DAILY@1800 SC 11/17/24 18:15 11/21/24 17:32 40 MG Nitroglycerin 0.4 mg Q5MINP PRN SL 11/17/24 18:15 Methylprednisolone Sodium Succinate 60 mg Q8HR IV 11/17/24 22:00 11/21/24 13:42 60 MG Lorazepam 1 mg Q2HPRN PRN IV 11/17/24 18:15 11/19/24 06:01 1 MG Levalbuterol HCl 0.625 mg Q4HR NEB 11/17/24 22:00 11/21/24 18:16 0.625 MG Ipratropium [place] 0.5 mg Q4HR NEB 11/17/24 22:00 11/21/24 18:16 0.5 MG Nicotine 1 patch DAILY@1800 TD 11/18/24 18:00 11/21/24 17:32 1 PATCH Midazolam HCl 50 ml @ 1 mls/hr Q24H IV 11/19/24 08:15 11/20/24 16:08 6 MLS/HR Propofol 100 ml @ 1.896 mls/ hr Q24H IV 11/19/24 08:45 11/20/24 09:33 3.792 MLS/HR Fentanyl Citrate 250 ml @ 2.5 mls/hr Q24H IV 11/19/24 08:45 11/20/24 14:21 7.5 MLS/HR Pantoprazole Sodium 40 mg DAILY IV 11/19/24 10:00 11/21/24 10:36 40 MG Azithromycin 250 ml @ 125 mls/hr DAILY IV 11/19/24 11:00 11/21/24 10:36 125 MLS/HR Ceftriaxone Sodium 50 ml @ 100 mls/hr DAILY@09 IV 11/19/24 09:58 11/21/24 09:54 100 MLS/HR Sodium Chloride 1,000 ml @ 100 mls/hr Q10H IV 11/20/24 05:45 11/21/24 13:44 100 MLS/HR Sodium Chloride 10 ml QSHIFT@10,22 IV 11/20/24 10:00 11/21/24 10:00 10 ML Norepinephrine Bitartrate 250 ml @ 1.875 mls/ hr Q24H IV 11/20/24 12:30 objective Gen.: Patient lying in bed in medical ICU. Sedated, intubated on mechanical ventilator. Head: Normocephalic, atraumatic. Eyes: PERRLA. Ears: Normal external anatomy. Throat: Endotracheal tube and orogastric tube in place. Neck: Supple, trachea midline. Chest: Transmitted breath sounds bilaterally. Decreased air entry bilaterally. No wheezing. Bibasilar crackles. Cardiovascular: Positive S1, positive S2. Regular rate and rhythm. Abdomen: Positive bowel sounds in all 4 quadrants. Soft, nontender, nondistended. : Santoro in place. Normal external genitalia. Rectal: Deferred. Skin: Warm, dry. Intact. Extremities: 2+ radial pulses bilaterally. No lower extremity edema. Neuro: Sedated. laboratory and microbiology Laboratory Tests 11/21/24 03:00 Test 11/21/24 03:00 Range/Units Serum Glucose 152 H 74-106 mg/dL Assessment/Plan Impression: Acute hypoxic respiratory failure 2/2 AE COPD COPD exacerbation Acute tachycardia Nicotine abuse ETOH abuse Methamphetamine abuse Pulmonary hypertension - RVSP 43 mmHg, WHO Class II Mitral stenosis, moderate Events: Remains on vent support On AC mode with RR 20, VT 500, PEEP 5, FiO2 30% Sedated on Versed On Precedex drip Taper sedation Plan for CPAP once patient is awake, alert CXR reviewed. Devices in place. No acute disease. Taper RR to 16 ABG notable for alkalemia Off Levophed, hemodynamically stable. Continue bronchodilators Continue IV steroids Continue antibiotics IV fluids at 100 ml/hr. NRT - nicotine patch DVT prophylaxis 11/18 - U-tox returned positive for methamphetamine Labs and imaging reviewed. Rest of plan as noted below. Plan: s/p intubation on mechanical ventilator. Vent settings; AC mode with RR 20, VT 500, PEEP 5, FiO2 30% Titrate FIO2 to keep O2 saturation above 90%. VAP bundle. Daily ABG and CXR while intubated Sedate for ventilator synchrony Pressors as necessary for hemodynamic support Titrate to keep mean arterial pressure greater than 65 mmHg Continue bronchodilators. IV steroids Continue antibiotics Vitamin supplementation Blood pressure control Monitor renal function. Monitor electrolytes. Supplement as necessary. Monitor ins and outs. Smoking cessation discussed for greater than 10 minutes GI/DVT prophylaxis. Prognosis: Guarded given patient's multiple co-morbidities. Condition: Critical Rest of plan per hospitalist and other consultants. A total of 35 minutes of critical care time was spent reviewing the patient record, examining the patient, making a diagnostic and therapeutic plan, discussing this plan with the medical personnel, following up on diagnostic studies and following the patient for clinical stability excluding any and all procedures. At least 50% of this time was spent in direct, [id number] contact. Thank you, TRISHA Castro, for allowing me to participate in this patient's care. Further recommendations will depend on the patient's clinical course. Please do not hesitate to contact me if you have any questions or concerns. This medical document was created using an electronic medical record system with [employer] dictation system. Although these documentations are being carefully reviewed, there may still be some phonetic and typographical changes. The errors are purely typographical, due to imperfection on the software program, and do not reflect any compromise in the patient's medical care. Dietary Evaluation Review Recommendations by RD: Protein Supplementation Comments: 1) Initiate Paulie @ 1 pk bid. Flush 30 mL free H2O AC/PC 2) Initiate MVI @ 1 tb qd 3) Initiate vitamin C @ 500 mg bid and zinc sulfate @ 220 mg qd for 7-10 days 4) If patient remains NPO > 7 days, consider EN/TPN to meet at least 75% of estimated daily needs 5) If gut is preferred, agree with previous recommendation of Jevity 1.2 @ 60 mL/hr goal rate as tolerated. Initiate @ 20 mL/hr and increase by 10 mL Q4H as tolerated until goal rate is reached. Flush with 150 mL free H2O Q6H. TF regimen provides 1918 kcal, 85g Pro (including Paulie @ 1 pk bid), and 1762 mL free H2O (including flushes) per 24 hrs. TF rate will meet 100% estimated energy needs and ~77% estimated protein needs 6) Collect HbA1C 7) Advance to 60g CCHO diet when medically feasible, pending speech therapy approval 8) Follow-up with pulmonology Expected Outcomes/Goals: 1) patient to receive nutrition support within 7 days of NPO status 2) labs and wound to improve 3) diet to advance 4) f/u in 2-3 days Plan discussed with: Other (BELL Woodson) Critical Care Time(min): 35 PAUL WHALEY MD Nov 21, 2024 20:05
[2024-11-22] VITALS (106 sets, daily range): BP systolic 100–153; BP diastolic 51–109; PULSE 74–114; RESP 6–30; TEMP 97.2–98.1; O2SAT 82–100
[2024-11-22 03:58] LABS: Basophils # (auto) 0 10 ^3/uL (0-0.2); Basophils % (auto) 0.4 % (0.0-2.0); Eosinophils # (auto) 0 10 ^3/uL (0-0.8); Hematocrit 41.4 % (36.0-46.0); Hemoglobin 13.5 g/dL (12.2-16.2); Lymphocytes # (auto) 0.2 10 ^3/uL (0.4-5.4); Lymphocytes % (auto) 1.8 % (10.0-50.0); Mean Corpuscular Hemoglobin 28.8 pg (28.0-32.0); Mean Corpuscular Hgb Conc. 32.6 g/dL (32.0-36.0); Mean Corpuscular Volume 88.3 fL (80.0-100.0); Monocytes # (auto) 0.4 10 ^3/uL (0-1.3); Monocytes % (auto) 3.4 % (0.0-12.0); Neutrophils # (auto) 11.4 10 ^3/uL (1.6-8.6); Neutrophils % (auto) 94.4 % (37.0-80.0); Platelet Count (auto) 271 10^3/uL (140-450); Red Blood Cells 4.68 10^6/uL (4.0-5.20); Red Cell Distribution Width 14.3 % (11.8-14.3)
[2024-11-22 04:14] LABS: Alanine Aminotransferase 17 U/L (7-40); Albumin 3.3 g/dL (3.2-4.8); Alkaline Phosphatase 52 U/L (46-116); Anion Gap 6 (5-15); Bilirubin, Total 0.8 mg/dL (0.2-1.0); Calcium 8.9 mg/dL (8.7-10.4); Carbon Dioxide 31 mmol/L (20-31); Chloride 102 mmol/L (98-107); Potassium 4.1 mmol/L (3.5-5.1); Sodium 139 mmol/L (136-145)
[2024-11-22 04:22] LABS: Blood Urea Nitrogen 24 mg/dL (9-23); Glucose 127 mg/dL (74-106)
[2024-11-22 04:38] LABS: Aspartate Aminotransferase 14 U/L (13-40)
--- NOTE | 2024-11-22 04:42 | DVH ---
CHEST RADIOGRAPH Indication: Respiratory Failure Technique: Single frontal view of the chest was obtained COMPARISON: XY CHEST PORTABLE on DOS: 11/21/24, XY CHEST PORTABLE on DOS: 11/20/24, XY CHEST PORTABLE on DOS: 11/20/24, XY CHEST PORTABLE on DOS: 11/19/24, XY CHEST PORTABLE on DOS: 11/17/24 FINDINGS: Lines and Tubes: Endotracheal tube, left PICC and enteric catheter in satisfactory position. Lungs: Patchy bilateral airspace disease. Pleura: No effusion. No pneumothorax. Cardiomediastinal contours: Unremarkable Bones: Unremarkable IMPRESSION: Lines and tubes in satisfactory position. No significant interval change.
[2024-11-22 07:15] LABS: Base Excess 0.6 mmol/L (-2.0-3.0)
--- NOTE | 2024-11-22 08:27 | DVHPN2 ---
Subjective Patient continues to report having shortness of breath and some heaviness in her chest Reviewed: Care Plan, H&P, Labs, Medications Changes from previous H/P or p: No Changes General: Per HPI Eyes: No Pain, No Vision change, No Conjunctivae inflammation, No Eyelid inflammation, No Other, No Redness ENT: No Ear pain, No Ear discharge, No Nose pain, No Nose discharge, No Nose congestion, No Mouth pain, No Mouth swelling, No Throat pain, No Throat swelling, No Other Cardiovascular: No Chest Pain, No Palpitations, No Orthopnea, No Paroxysmal Noc. Dyspnea, No Edema, No Lt Headedness, No Other Respiratory: No Cough, No Dry; Shortness of breath, SOB with excertion, W heezing; No Hemoptysis, No Pleuritic Pain, No Sputum, No Other Gastrointestinal: No Nausea, No Vomiting, No Abdominal Pain, No Diarrhea, No Constipation, No Melena, No Hematochezia, No Other Genitourinary: No Dysuria, No Frequency, No Incontinence, No Hematuria, No Retention, No Other Musculoskeletal: No other, No neck pain, No shoulder pain, No arm pain, No back pain, No hand pain, No leg pain, No foot pain Skin: No Rash, No Lesions, No Jaundice, No Bruising, No Other Objective Vitals Vital Signs Date Time Temp Pulse Resp B/P (MAP) Pulse Ox O2 Delivery O2 Flow Rate FiO2 11/22/24 07:49 84 16 136/63 (87) 93 30 11/22/24 06:15 97.9 97.9 11/22/24 06:00 Mechanical Ventilator+ Intake/Output Intake and Output 11/22/24 07:00 Intake Total 2939.175 ml Output Total 650 ml Balance 2289.175 ml Intake Oral 0 ml IV Total 2939.175 ml Output Urine Total 650 ml General Appearance: mild distress, Other (sedated and intubated) HEENT: Atraumatic Cardiovascular: Normal S1, Normal S2 Abdomen: Normal bowel sounds, Soft Skin: Dry, Intact Psych/Mental Status: Other (Unable to assess) Medications Current Medications Medications Dose Ordered Sig/Teena Route Start Time Stop Time Status Last Admin Dose Admin Ondansetron HCl 4 mg Q4HP PRN IV 11/17/24 18:15 Docusate Sodium 100 mg BIDPRN PRN PO 11/17/24 18:15 Morphine Sulfate 2 mg Q4HPRN PRN IV 11/17/24 18:15 Enoxaparin Sodium 40 mg DAILY@1800 SC 11/17/24 18:15 11/21/24 17:32 40 MG Nitroglycerin 0.4 mg Q5MINP PRN SL 11/17/24 18:15 Methylprednisolone Sodium Succinate 60 mg Q8HR IV 11/17/24 22:00 11/22/24 05:42 60 MG Lorazepam 1 mg Q2HPRN PRN IV 11/17/24 18:15 11/19/24 06:01 1 MG Levalbuterol HCl 0.625 mg Q4HR NEB 11/17/24 22:00 11/22/24 06:18 0.625 MG Ipratropium [place] 0.5 mg Q4HR NEB 11/17/24 22:00 11/22/24 06:18 0.5 MG Nicotine 1 patch DAILY@1800 TD 11/18/24 18:00 11/21/24 17:32 1 PATCH Midazolam HCl 50 ml @ 1 mls/hr Q24H IV 11/19/24 08:15 11/21/24 23:53 1 MLS/HR Propofol 100 ml @ 1.896 mls/ hr Q24H IV 11/19/24 08:45 11/20/24 09:33 3.792 MLS/HR Fentanyl Citrate 250 ml @ 2.5 mls/hr Q24H IV 11/19/24 08:45 11/22/24 04:16 10 MLS/HR Pantoprazole Sodium 40 mg DAILY IV 11/19/24 10:00 11/21/24 10:36 40 MG Azithromycin 250 ml @ 125 mls/hr DAILY IV 11/19/24 11:00 11/21/24 10:36 125 MLS/HR Ceftriaxone Sodium 50 ml @ 100 mls/hr DAILY@09 IV 11/19/24 09:58 11/21/24 09:54 100 MLS/HR Sodium Chloride 1,000 ml @ 100 mls/hr Q10H IV 11/20/24 05:45 11/21/24 23:53 100 MLS/HR Sodium Chloride 10 ml QSHIFT@10,22 IV 11/20/24 10:00 11/21/24 21:45 10 ML Norepinephrine Bitartrate 250 ml @ 1.875 mls/ hr Q24H IV 11/20/24 12:30 Laboratory Results Laboratory Tests 11/22/24 03:15 Chemistry Test 11/22/24 03:15 Albumin 3.3 g/dL (3.2-4.8) Calcium Level 8.9 mg/dL (8.7-10.4) Total Protein 5.0 g/dL (5.7-8.2) L LFT Test 11/22/24 03:15 Alanine Aminotransferase (ALT) 17 U/L (7-40) Alkaline Phosphatase 52 U/L (46-116) Aspartate Amino Transferase (AST) 14 U/L (13-40) Total Bilirubin 0.8 mg/dL (0.2-1.0) Urinalysis Test 11/18/24 10:37 Urine Color Yellow (Yellow) Urine Clarity Clear (Clear) Urine pH 6.0 (5.0-9.0) Urine Specific [place] 1.024 (1.001-1.035) Urine Protein 2+ (Negative) H Urine Ketones Negative (Negative) Urine Blood Negative /uL (Negative) Urine Nitrite Negative (Negative) Urine Bilirubin Negative (Negative) Urine Urobilinogen Normal mg/dL (Negative) Urine Leukocyte Esterase Negative /uL (Negative) Urine RBC 1 /hpf (0 - 4) Urine Microscopic WBC 1 /HPF (0-5) Urine Squamous Epithelial Cells Few /hpf (<5) Urine Bacteria None seen /hpf (None Seen) Urine Hyaline Casts Few /lpf (0 - 2) Urine Mucus Few (None Seen) Urine Glucose 4+ mg/dL (Normal) H Blood Gas Results Test 11/22/24 06:17 Arterial Blood pH 7.399 (7.350-7.450) FiO2 % 30.0 Microbiology Microbiology Date/Time Source Procedure Growth Status 11/19/24 12:00 Nose MRSA Screen - Final Complete Labs and/or images reviewed: Labs reviewed by me, Image(s) reviewed by me Assessment/Plan Assessment/Plan Impression: -acute alcohol and substance abuse withdrawal -COPD with exacerbation -acute hypoxic respiratory failure -nicotine dependence -hyperkalemia Plan: Events: Patient continues to be on mechanical ventilation. Apparently agitated yesterday wearing CPAP. Currently on fentanyl and Precedex. Following some commands. -spontaneous breathing trial -taper Solu-Medrol -nicotine patch -continue bronchodilators -potassium lowering agents -O2 supplementation to keep saturation greater than 92% -repeat labs, chest x-ray in a.m. Critical care time spent with patient discussing and formulating plan of care: 40 minutes. This does not include time spent performing procedures. This medical document was created using an electronic medical record system with [employer] dictation system. Although this document has been carefully reviewed, there may still be some phonetic and typographical errors. These areas are purely typographical due to imperfections of the software programs, and do not reflect any compromise in the patient's medical care. Plan discussed with: Patient, Other (RN) My Orders Orders - JEFF QUINN NP Procedure Category Date Status Time Notify Provider NOTICE 11/21/24 Transmitted Malnutrition 09:04 Nutritional NOURISH 11/21/24 Transmitted Supplements 09:04 Dietary NOTICE 11/21/24 Transmitted Recommendations 09:04 Date of Service: Nov 22, 2024 Billing Provider: JEFF QUINN NP Common Visit Codes: [id number] CARE 30-74 MIN JEFF QUINN NP Nov 22, 2024 08:27
--- NOTE | 2024-11-22 21:24 | DVHPN2 ---
Progress Note - Dictate Date Seen: Nov 22, 2024 Medical Necessity Reason Pt with a Central, PICC or Fol: No Subjective Patient seen and examined at bedside. Intubated on mechanical ventilator. Overnight events reviewed. vital signs Vital Sign Date Time Temp Pulse Resp B/P (MAP) Pulse Ox O2 Delivery O2 Flow Rate FiO2 11/22/24 21:00 99 16 144/78 (100) 97 11/22/24 20:10 30 11/22/24 20:00 Mechanical Ventilator+ 11/22/24 20:00 98.1 98.1 11/22/24 20:00 0 Total Intake and Output 11/21/24 11/21/24 11/22/24 15:00 23:00 07:00 Intake Total 1085.975 ml 882.42 ml 1070.78 ml Output Total 300 ml 350 ml Balance 1085.975 ml 582.42 ml 720.78 ml medications Current Medications Medications Dose Ordered Sig/Teena Route Start Time Stop Time Status Last Admin Dose Admin Ondansetron HCl 4 mg Q4HP PRN IV 11/17/24 18:15 Docusate Sodium 100 mg BIDPRN PRN PO 11/17/24 18:15 Morphine Sulfate 2 mg Q4HPRN PRN IV 11/17/24 18:15 Enoxaparin Sodium 40 mg DAILY@1800 SC 11/17/24 18:15 11/22/24 18:26 40 MG Nitroglycerin 0.4 mg Q5MINP PRN SL 11/17/24 18:15 Lorazepam 1 mg Q2HPRN PRN IV 11/17/24 18:15 11/19/24 06:01 1 MG Levalbuterol HCl 0.625 mg Q4HR NEB 11/17/24 22:00 11/22/24 19:08 0.625 MG Ipratropium [place] 0.5 mg Q4HR NEB 11/17/24 22:00 11/22/24 19:08 0.5 MG Nicotine 1 patch DAILY@1800 TD 11/18/24 18:00 11/22/24 18:26 1 PATCH Midazolam HCl 50 ml @ 1 mls/hr Q24H IV 11/19/24 08:15 11/21/24 23:53 1 MLS/HR Propofol 100 ml @ 1.896 mls/ hr Q24H IV 11/19/24 08:45 6/7/25 09:33 3.792 MLS/HR Fentanyl Citrate 250 ml @ 2.5 mls/hr Q24H IV 11/19/24 08:45 11/22/24 04:16 10 MLS/HR Pantoprazole Sodium 40 mg DAILY IV 11/19/24 10:00 11/22/24 09:36 40 MG Azithromycin 250 ml @ 125 mls/hr DAILY IV 11/19/24 11:00 11/22/24 09:36 125 MLS/HR Ceftriaxone Sodium 50 ml @ 100 mls/hr DAILY@09 IV 11/19/24 09:58 11/22/24 08:43 100 MLS/HR Sodium Chloride 1,000 ml @ 100 mls/hr Q10H IV 11/20/24 05:45 11/22/24 12:01 100 MLS/HR Sodium Chloride 10 ml QSHIFT@10,22 IV 11/20/24 10:00 11/22/24 09:37 10 ML Norepinephrine Bitartrate 250 ml @ 1.875 mls/ hr Q24H IV 11/20/24 12:30 Methylprednisolone Sodium Succinate 40 mg BID IV 11/22/24 22:00 objective Gen.: Patient lying in bed in medical ICU. Intubated on mechanical ventilator. Head: Normocephalic, atraumatic. Eyes: PERRLA. Ears: Normal external anatomy. Throat: Endotracheal tube and orogastric tube in place. Neck: Supple, trachea midline. Chest: Transmitted breath sounds bilaterally. Decreased air entry bilaterally. No wheezing. Bibasilar crackles. Cardiovascular: Positive S1, positive S2. Regular rate and rhythm. Abdomen: Positive bowel sounds in all 4 quadrants. Soft, nontender, nondistended. : Santoro in place. Normal external genitalia. Rectal: Deferred. Skin: Warm, dry. Intact. Extremities: 2+ radial pulses bilaterally. No lower extremity edema. 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 Chest x-ray reviewed, notable for patchy bilateral opacities. Off Levophed, hemodynamically stable. Continue bronchodilators Continue IV steroids - taper as tolerated Continue antibiotics IV fluids at 100 ml/hr. NRT - nicotine patch Protonix for GI prophylaxis Lovenox for DVT prophylaxis 11/18 - U-tox returned positive for methamphetamine Labs and imaging reviewed. Rest of plan as noted below. Plan: s/p intubation on mechanical ventilator. Vent settings; AC mode with RR 16, VT 500, PEEP 5, FiO2 30% Titrate FIO2 to keep O2 saturation above 90%. VAP bundle. Daily ABG and CXR while intubated Off sedation Pressors as necessary for hemodynamic support Titrate to keep mean arterial pressure greater than 65 mmHg Continue bronchodilators. IV steroids Continue antibiotics Vitamin supplementation IV fluids Blood pressure control Monitor renal function. Monitor electrolytes. Supplement as necessary. Monitor ins and outs. Smoking cessation discussed for greater than 10 minutes GI/DVT prophylaxis. Prognosis: Guarded given patient's multiple co-morbidities. Condition: Critical Rest of plan per hospitalist and other consultants. A total of 35 minutes of critical care time was spent reviewing the patient record, examining the patient, making a diagnostic and therapeutic plan, discussing this plan with the medical personnel, following up on diagnostic studies and following the patient for clinical stability excluding any and all procedures. At least 50% of this time was spent in direct, [id number] contact. Thank you, TRISHA Castro, for allowing me to participate in this patient's care. Further recommendations will depend on the patient's clinical course. Please do not hesitate to contact me if you have any questions or concerns. This medical document was created using an electronic medical record system with [employer] dictation system. Although these documentations are being carefully reviewed, there may still be some phonetic and typographical changes. The errors are purely typographical, due to imperfection on the software program, and do not reflect any compromise in the patient's medical care. Dietary Evaluation Review Recommendations by RD: Protein Supplementation Comments: 1) Initiate Paulie @ 1 pk bid. Flush 30 mL free H2O AC/PC 2) Initiate MVI @ 1 tb qd 3) Initiate vitamin C @ 500 mg bid and zinc sulfate @ 220 mg qd for 7-10 days 4) If patient remains NPO > 7 days, consider EN/TPN to meet at least 75% of estimated daily needs 5) If gut is preferred, agree with previous recommendation of Jevity 1.2 @ 60 mL/hr goal rate as tolerated. Initiate @ 20 mL/hr and increase by 10 mL Q4H as tolerated until goal rate is reached. Flush with 150 mL free H2O Q6H. TF regimen provides 1918 kcal, 85g Pro (including Paulie @ 1 pk bid), and 1762 mL free H2O (including flushes) per 24 hrs. TF rate will meet 100% estimated energy needs and ~77% estimated protein needs 6) Collect HbA1C 7) Advance to 60g CCHO diet when medically feasible, pending speech therapy approval 8) Follow-up with pulmonology Expected Outcomes/Goals: 1) patient to receive nutrition support within 7 days of NPO status 2) labs and wound to improve 3) diet to advance 4) f/u in 2-3 days Plan discussed with: Other (BELL Abad) Critical Care Time(min): 35 PAUL WHALEY MD Nov 22, 2024 21:24
[2024-11-22] MEDS: methylPREDNISolone SOD SUCC 40 MG/ML VL IV SCH (22:00)
[2024-11-23] VITALS (105 sets, daily range): BP systolic 122–177; BP diastolic 50–99; PULSE 75–120; RESP 13–33; TEMP 97.8–98.8; O2SAT 88–100
[2024-11-23 04:22] LABS: Basophils # (auto) 0 10 ^3/uL (0-0.2); Basophils % (auto) 0.1 % (0.0-2.0); Eosinophils # (auto) 0 10 ^3/uL (0-0.8); Hematocrit 42.1 % (36.0-46.0); Hemoglobin 13.5 g/dL (12.2-16.2); Lymphocytes # (auto) 0.2 10 ^3/uL (0.4-5.4); Lymphocytes % (auto) 2.2 % (10.0-50.0); Mean Corpuscular Hemoglobin 28.7 pg (28.0-32.0); Mean Corpuscular Hgb Conc. 32.1 g/dL (32.0-36.0); Mean Corpuscular Volume 89.4 fL (80.0-100.0); Monocytes # (auto) 0.5 10 ^3/uL (0-1.3); Monocytes % (auto) 4.2 % (0.0-12.0); Neutrophils # (auto) 10.4 10 ^3/uL (1.6-8.6); Neutrophils % (auto) 93.5 % (37.0-80.0); Platelet Count (auto) 245 10^3/uL (140-450); Red Blood Cells 4.71 10^6/uL (4.0-5.20); Red Cell Distribution Width 14.5 % (11.8-14.3); White Blood Cell 11.1 10^3/uL (4.4-10.8)
[2024-11-23 04:28] LABS: Chloride 104 mmol/L (98-107); Potassium 4.3 mmol/L (3.5-5.1); Sodium 140 mmol/L (136-145)
[2024-11-23 04:29] LABS: Anion Gap 7 (5-15); Carbon Dioxide 29 mmol/L (20-31)
--- NOTE | 2024-11-23 04:32 | DVH ---
INDICATION: RESPIRATORY FAILURE TECHNIQUE: Single frontal view of the chest was obtained COMPARISON: XY CHEST PORTABLE on DOS: 11/22/24, XY CHEST PORTABLE on DOS: 11/21/24, XY CHEST PORTABLE on DOS: 11/20/24, XY CHEST PORTABLE on DOS: 11/20/24, XY CHEST PORTABLE on DOS: 11/19/24, XY CHEST PORTABLE on DOS: 11/22/24 FINDINGS: Lines and Tubes: Endotracheal tube, left PICC and enteric catheter in satisfactory position. Lungs: Patchy bilateral airspace disease. Pleura: No effusion. No pneumothorax. Cardiomediastinal contours: Unremarkable Bones: Unremarkable IMPRESSION: Lines and tubes in satisfactory position. No significant interval change.
[2024-11-23 04:35] LABS: BUN/Creatinine Ratio 46.3 (10.0-20.0); Blood Urea Nitrogen 25 mg/dL (9-23); Glucose 120 mg/dL (74-106)
--- NOTE | 2024-11-23 09:07 | DVHPN2 ---
Subjective Patient intubated, off sedation, following commands. Reviewed: Care Plan, H&P, Labs, Medications Changes from previous H/P or p: Changes General: Per HPI Eyes: No Pain, No Vision change, No Conjunctivae inflammation, No Eyelid inflammation, No Other, No Redness ENT: No Ear pain, No Ear discharge, No Nose pain, No Nose discharge, No Nose congestion, No Mouth pain, No Mouth swelling, No Throat pain, No Throat swelling, No Other Cardiovascular: No Chest Pain, No Palpitations, No Orthopnea, No Paroxysmal Noc. Dyspnea, No Edema, No Lt Headedness, No Other Respiratory: No Cough, No Dry, No Shortness of breath, No SOB with excertion, No Wheezing, No Hemoptysis, No Pleuritic Pain, No Sputum, No Other Gastrointestinal: No Nausea, No Vomiting, No Abdominal Pain, No Diarrhea, No Constipation, No Melena, No Hematochezia, No Other Genitourinary: No Dysuria, No Frequency, No Incontinence, No Hematuria, No Retention, No Other Musculoskeletal: No other, No neck pain, No shoulder pain, No arm pain, No back pain, No hand pain, No leg pain, No foot pain Skin: No Rash, No Lesions, No Jaundice, No Bruising, No Other Objective Vitals Vital Signs Date Time Temp Pulse Resp B/P (MAP) Pulse Ox O2 Delivery O2 Flow Rate FiO2 11/23/24 08:38 40 11/23/24 08:15 104 27 160/87 (111) 92 11/23/24 08:00 98.0 98.0 11/23/24 08:00 Mechanical Ventilator+ 11/23/24 08:00 0 Intake/Output Intake and Output 11/23/24 07:00 Intake Total 2816.31 ml Output Total 800 ml Balance 2016.31 ml Intake Oral 0 ml IV Total 2816.31 ml Output Urine Total 800 ml General Appearance: Alert, Cooperative, mild distress, Other (sedated and intubated) HEENT: Atraumatic Lungs: Clear to auscultation, Normal air movement, Other (Mechanical ventilation) Cardiovascular: Normal S1, Normal S2 Abdomen: Normal bowel sounds, Soft Skin: Dry, Intact Psych/Mental Status: Other (Unable to assess) Medications Current Medications Medications Dose Ordered Sig/Teena Route Start Time Stop Time Status Last Admin Dose Admin Ondansetron HCl 4 mg Q4HP PRN IV 11/17/24 18:15 Docusate Sodium 100 mg BIDPRN PRN PO 11/17/24 18:15 Morphine Sulfate 2 mg Q4HPRN PRN IV 11/17/24 18:15 Enoxaparin Sodium 40 mg DAILY@1800 SC 11/17/24 18:15 11/22/24 18:26 40 MG Nitroglycerin 0.4 mg Q5MINP PRN SL 11/17/24 18:15 Lorazepam 1 mg Q2HPRN PRN IV 11/17/24 18:15 11/19/24 06:01 1 MG Levalbuterol HCl 0.625 mg Q4HR NEB 11/17/24 22:00 11/23/24 05:58 0.625 MG Ipratropium [place] 0.5 mg Q4HR NEB 11/17/24 22:00 11/23/24 05:58 0.5 MG Nicotine 1 patch DAILY@1800 TD 11/18/24 18:00 11/22/24 18:26 1 PATCH Midazolam HCl 50 ml @ 1 mls/hr Q24H IV 11/19/24 08:15 11/21/24 23:53 1 MLS/HR Propofol 100 ml @ 1.896 mls/ hr Q24H IV 11/19/24 08:45 11/20/24 09:33 3.792 MLS/HR Fentanyl Citrate 250 ml @ 2.5 mls/hr Q24H IV 11/19/24 08:45 11/22/24 04:16 10 MLS/HR Pantoprazole Sodium 40 mg DAILY IV 11/19/24 10:00 11/22/24 09:36 40 MG Azithromycin 250 ml @ 125 mls/hr DAILY IV 11/19/24 11:00 11/22/24 09:36 125 MLS/HR Ceftriaxone Sodium 50 ml @ 100 mls/hr DAILY@09 IV 11/19/24 09:58 11/23/24 08:30 100 MLS/HR Sodium Chloride 1,000 ml @ 100 mls/hr Q10H IV 11/20/24 05:45 11/23/24 06:30 100 MLS/HR Sodium Chloride 10 ml QSHIFT@ IV 11/20/24 10:00 11/22/24 22:00 10 ML Norepinephrine Bitartrate 250 ml @ 1.875 mls/ hr Q24H IV 11/20/24 12:30 Methylprednisolone Sodium Succinate 40 mg BID IV 11/22/24 22:00 11/22/24 22:00 40 MG Laboratory Results Laboratory Tests 11/23/24 03:05 Chemistry Test 11/23/24 03:05 Calcium Level 9.0 mg/dL (8.7-10.4) Urinalysis Test 11/18/24 10:37 Urine Color Yellow (Yellow) Urine Clarity Clear (Clear) Urine pH 6.0 (5.0-9.0) Urine Specific [place] 1.024 (1.001-1.035) Urine Protein 2+ (Negative) H Urine Ketones Negative (Negative) Urine Blood Negative /uL (Negative) Urine Nitrite Negative (Negative) Urine Bilirubin Negative (Negative) Urine Urobilinogen Normal mg/dL (Negative) Urine Leukocyte Esterase Negative /uL (Negative) Urine RBC 1 /hpf (0 - 4) Urine Microscopic WBC 1 /HPF (0-5) Urine Squamous Epithelial Cells Few /hpf (<5) Urine Bacteria None seen /hpf (None Seen) Urine Hyaline Casts Few /lpf (0 - 2) Urine Mucus Few (None Seen) Urine Glucose 4+ mg/dL (Normal) H Blood Gas Results Test 11/23/24 07:10 Arterial Blood pH 7.314 (7.350-7.450) FiO2 % 30.0 Microbiology Microbiology Date/Time Source Procedure Growth Status 11/19/24 12:00 Nose MRSA Screen - Final Complete Labs and/or images reviewed: Labs reviewed by me, Image(s) reviewed by me Assessment/Plan Assessment/Plan Impression: -acute alcohol and substance abuse withdrawal -COPD with exacerbation -acute hypoxic respiratory failure -nicotine dependence -hyperkalemia Plan: Events: Patient is following commands. Currently on spontaneous breathing trial. -lorazepam p.r.n. withdrawal symptoms -taper Solu-Medrol -nicotine patch -continue bronchodilators -PUD prophylaxis -repeat labs, chest x-ray in a.m. Critical care time spent with patient discussing and formulating plan of care: 40 minutes. This does not include time spent performing procedures. This medical document was created using an electronic medical record system with [employer] dictation system. Although this document has been carefully reviewed, there may still be some phonetic and typographical errors. These areas are purely typographical due to imperfections of the software programs, and do not reflect any compromise in the patient's medical care. Plan discussed with: Patient, Other (RN) Date of Service: Nov 23, 2024 Billing Provider: JEFF QUINN NP Common Visit Codes: [id number] CARE 30-74 MIN JEFF QUINN NP Nov 23, 2024 09:07
--- NOTE | 2024-11-23 14:26 | DVHPN2 ---
Progress Note - Dictate Date Seen: Nov 23, 2024 Medical Necessity Reason Pt with a Central, PICC or Fol: No vital signs Vital Sign Date Time Temp Pulse Resp B/P (MAP) Pulse Ox O2 Delivery O2 Flow Rate FiO2 11/23/24 13:51 112 16 160/93 (115) 97 30 11/23/24 12:00 97.8 97.8 11/23/24 12:00 Mechanical Ventilator+ 0 Total Intake and Output 11/22/24 11/22/24 11/23/24 15:00 23:00 07:00 Intake Total 1074.29 ml 861.20 ml 880.82 ml Output Total 400 ml 400 ml Balance 1074.29 ml 461.20 ml 480.82 ml medications Current Medications Medications Dose Ordered Sig/Teena Route Start Time Stop Time Status Last Admin Dose Admin Ondansetron HCl 4 mg Q4HP PRN IV 11/17/24 18:15 Docusate Sodium 100 mg BIDPRN PRN PO 11/17/24 18:15 Morphine Sulfate 2 mg Q4HPRN PRN IV 11/17/24 18:15 Enoxaparin Sodium 40 mg DAILY@1800 SC 11/17/24 18:15 11/22/24 18:26 40 MG Nitroglycerin 0.4 mg Q5MINP PRN SL 11/17/24 18:15 Lorazepam 1 mg Q2HPRN PRN IV 11/17/24 18:15 11/19/24 06:01 1 MG Levalbuterol HCl 0.625 mg Q4HR NEB 11/17/24 22:00 11/23/24 13:51 0.625 MG Ipratropium [place] 0.5 mg Q4HR NEB 11/17/24 22:00 11/23/24 13:51 0.5 MG Nicotine 1 patch DAILY@1800 TD 11/18/24 18:00 11/22/24 18:26 1 PATCH Midazolam HCl 50 ml @ 1 mls/hr Q24H IV 11/19/24 08:15 11/21/24 23:53 1 MLS/HR Propofol 100 ml @ 1.896 mls/ hr Q24H IV 11/19/24 08:45 11/23/24 10:59 1.896 MLS/HR Fentanyl Citrate 250 ml @ 2.5 mls/hr Q24H IV 11/19/24 08:45 11/22/24 04:16 10 MLS/HR Pantoprazole Sodium 40 mg DAILY IV 11/19/24 10:00 11/23/24 10:12 40 MG Azithromycin 250 ml @ 125 mls/hr DAILY IV 11/19/24 11:00 11/23/24 10:12 125 MLS/HR Ceftriaxone Sodium 50 ml @ 100 mls/hr DAILY@09 IV 11/19/24 09:58 11/23/24 08:30 100 MLS/HR Sodium Chloride 1,000 ml @ 100 mls/hr Q10H IV 11/20/24 05:45 11/23/24 06:30 100 MLS/HR Sodium Chloride 10 ml QSHIFT@10,22 IV 11/20/24 10:00 11/23/24 10:12 10 ML Norepinephrine Bitartrate 250 ml @ 1.875 mls/ hr Q24H IV 11/20/24 12:30 Methylprednisolone Sodium Succinate 40 mg BID IV 11/22/24 22:00 11/23/24 10:12 40 MG laboratory and microbiology Laboratory Tests 11/23/24 03:05 Test 11/23/24 03:05 Range/Units Serum Glucose 120 H 74-106 mg/dL Assessment/Plan Impression Acute hypoxemic respiratory failure Acute COPD exacerbation Pulmonary hypertension Substance abuse Patient seen and examined in ICU Events On mechanical ventilation S/p intubation PEEP 5, FiO2 30% Started on Librium for ? withdrawals Labs and imaging reviewed Chest x-ray shows increased pulmonary vessels suggestive of cor pulmonale ABG reviewed Management Vent support Titrate to maintain sats 90% or above Sedation holiday daily If patient follows commands, proceed to weaning trial Pressure support 12/18, extubate when ready Continue antibiotics F/u cultures Bronchodilators Monitor renal function Monitor electrolytes Supplement as needed Pressors as needed for hemodynamic support To maintain a mean arterial pressure of 65 mmHg Continue Librium to help facilitate weaning from mechanical ventilation DVT prophylaxis Critical care time 35 minutes Dietary Evaluation Review Recommendations by RD: Protein Supplementation Comments: 1) Initiate Paulie @ 1 pk bid. Flush 30 mL free H2O AC/PC 2) Initiate MVI @ 1 tb qd 3) Initiate vitamin C @ 500 mg bid and zinc sulfate @ 220 mg qd for 7-10 days 4) If patient remains NPO > 7 days, consider EN/TPN to meet at least 75% of estimated daily needs 5) If gut is preferred, agree with previous recommendation of Jevity 1.2 @ 60 mL/hr goal rate as tolerated. Initiate @ 20 mL/hr and increase by 10 mL Q4H as tolerated until goal rate is reached. Flush with 150 mL free H2O Q6H. TF regimen provides 1918 kcal, 85g Pro (including Paulie @ 1 pk bid), and 1762 mL free H2O (including flushes) per 24 hrs. TF rate will meet 100% estimated energy needs and ~77% estimated protein needs 6) Collect HbA1C 7) Advance to 60g CCHO diet when medically feasible, pending speech therapy approval 8) Follow-up with pulmonology Expected Outcomes/Goals: 1) patient to receive nutrition support within 7 days of NPO status 2) labs and wound to improve 3) diet to advance 4) f/u in 2-3 days Plan discussed with: Other (Rn) ADRIANA LOPEZ MD Nov 23, 2024 14:26
[2024-11-23] MEDS ORDERED: CLINIMIX PER PHARMACY 0 ML IV SCH (15:45)
[2024-11-23] MEDS: chlordiazePOXIDE HCL 25 MG CAP PO SCH (18:11)
[2024-11-23] MEDS: AMINO ACID INFUSION IN D10W 1,000 ML IV SCH (22:01)
[2024-11-23] MEDS: ACCU-CHEK COMFORT CURVE STRIP VI SCH (23:40)
[2024-11-23] MEDS: InsuLIN REG 1unit/0.01ml Soln (100units/ml) SC SCH (23:40)
[2024-11-23] MEDS: diphenhdrAMINE HCL 50 MG/1 ML VL IV ONE (23:41)
[2024-11-24] VITALS (110 sets, daily range): BP systolic 122–205; BP diastolic 54–120; PULSE 84–120; RESP 9–43; TEMP 97.7–99.2; O2SAT 82–100
[2024-11-24] MEDS ORDERED: DEXTROSE (50%) 50ML SYRG IV SCH
[2024-11-24 03:52] LABS: Basophils # (auto) 0 10 ^3/uL (0-0.2); Eosinophils # (auto) 0 10 ^3/uL (0-0.8); Hematocrit 42.3 % (36.0-46.0); Hemoglobin 13.7 g/dL (12.2-16.2); Lymphocytes # (auto) 0.4 10 ^3/uL (0.4-5.4); Lymphocytes % (auto) 3.5 % (10.0-50.0); Mean Corpuscular Hemoglobin 28.9 pg (28.0-32.0); Mean Corpuscular Hgb Conc. 32.5 g/dL (32.0-36.0); Monocytes # (auto) 0.5 10 ^3/uL (0-1.3); Monocytes % (auto) 4.9 % (0.0-12.0); Neutrophils % (auto) 91.6 % (37.0-80.0); Nucleated Red Blood Cells % 0.1 %; Platelet Count (auto) 235 10^3/uL (140-450); Red Blood Cells 4.75 10^6/uL (4.0-5.20); Red Cell Distribution Width 14.2 % (11.8-14.3)
[2024-11-24 04:01] LABS: Alanine Aminotransferase 32 U/L (7-40); Albumin 3.4 g/dL (3.2-4.8); Alkaline Phosphatase 48 U/L (46-116); Anion Gap 7 (5-15); BUN/Creatinine Ratio 34.5 (10.0-20.0); Blood Urea Nitrogen 19 mg/dL (9-23); Carbon Dioxide 30 mmol/L (20-31); Chloride 101 mmol/L (98-107); Magnesium 2.3 mg/dL (1.6-2.6); Potassium 4.5 mmol/L (3.5-5.1); Sodium 138 mmol/L (136-145)
[2024-11-24 04:02] LABS: Bilirubin, Total 0.7 mg/dL (0.2-1.0); Glucose 114 mg/dL (74-106); Phosphorus 2.7 mg/dL (2.4-5.1); Total Protein 5.1 g/dL (5.7-8.2)
[2024-11-24 04:33] LABS: Aspartate Aminotransferase 20 U/L (13-40)
[2024-11-24 07:08] LABS: Base Excess 5.9 mmol/L (-2.0-3.0)
--- NOTE | 2024-11-24 08:27 | DVHPN2 ---
Subjective Patient intubated, off sedation, following commands. Reviewed: Care Plan, H&P, Labs, Medications Changes from previous H/P or p: No Changes General: Per HPI Eyes: No Pain, No Vision change, No Conjunctivae inflammation, No Eyelid inflammation, No Other, No Redness ENT: No Ear pain, No Ear discharge, No Nose pain, No Nose discharge, No Nose congestion, No Mouth pain, No Mouth swelling, No Throat pain, No Throat swelling, No Other Cardiovascular: No Chest Pain, No Palpitations, No Orthopnea, No Paroxysmal Noc. Dyspnea, No Edema, No Lt Headedness, No Other Respiratory: No Cough, No Dry, No Shortness of breath, No SOB with excertion, No Wheezing, No Hemoptysis, No Pleuritic Pain, No Sputum, No Other Gastrointestinal: No Nausea, No Vomiting, No Abdominal Pain, No Diarrhea, No Constipation, No Melena, No Hematochezia, No Other Genitourinary: No Dysuria, No Frequency, No Incontinence, No Hematuria, No Retention, No Other Musculoskeletal: No other, No neck pain, No shoulder pain, No arm pain, No back pain, No hand pain, No leg pain, No foot pain Skin: No Rash, No Lesions, No Jaundice, No Bruising, No Other Objective Vitals Vital Signs Date Time Temp Pulse Resp B/P (MAP) Pulse Ox O2 Delivery O2 Flow Rate FiO2 11/24/24 08:00 84 11/24/24 08:00 16 97 Mechanical Ventilator+ 0 30 30 11/24/24 07:00 153/78 (103) 11/24/24 04:00 98.8 98.8 Intake/Output Intake and Output 11/24/24 07:00 Intake Total 3494.199 ml Output Total 1300 ml Balance 2194.199 ml Intake Oral 0 ml IV Total 3444.199 ml Other 50 ml Output Urine Total 1300 ml General Appearance: Alert, Cooperative, mild distress, Other (sedated and intubated) HEENT: Atraumatic Lungs: Clear to auscultation, Normal air movement, Other (Mechanical ventilation) Cardiovascular: Normal S1, Normal S2 Abdomen: Normal bowel sounds, Soft Skin: Dry, Intact Psych/Mental Status: Other (Unable to assess) Medications Current Medications Medications Dose Ordered Sig/Teena Route Start Time Stop Time Status Last Admin Dose Admin Ondansetron HCl 4 mg Q4HP PRN IV 6/4/25 18:15 Docusate Sodium 100 mg BIDPRN PRN PO 11/17/24 18:15 Morphine Sulfate 2 mg Q4HPRN PRN IV 11/17/24 18:15 Enoxaparin Sodium 40 mg DAILY@1800 SC 11/17/24 18:15 11/23/24 18:11 40 MG Nitroglycerin 0.4 mg Q5MINP PRN SL 11/17/24 18:15 Lorazepam 1 mg Q2HPRN PRN IV 11/17/24 18:15 11/19/24 06:01 1 MG Levalbuterol HCl 0.625 mg Q4HR NEB 11/17/24 22:00 11/24/24 05:53 0.625 MG Ipratropium [place] 0.5 mg Q4HR NEB 11/17/24 22:00 11/24/24 05:52 0.5 MG Nicotine 1 patch DAILY@1800 TD 11/18/24 18:00 11/23/24 18:11 1 PATCH Midazolam HCl 50 ml @ 1 mls/hr Q24H IV 11/19/24 08:15 11/21/24 23:53 1 MLS/HR Propofol 100 ml @ 1.896 mls/ hr Q24H IV 11/19/24 08:45 11/24/24 01:45 5.688 MLS/HR Fentanyl Citrate 250 ml @ 2.5 mls/hr Q24H IV 11/19/24 08:45 11/24/24 02:46 5 MLS/HR Pantoprazole Sodium 40 mg DAILY IV 11/19/24 10:00 11/23/24 10:12 40 MG Azithromycin 250 ml @ 125 mls/hr DAILY IV 11/19/24 11:00 11/23/24 10:12 125 MLS/HR Ceftriaxone Sodium 50 ml @ 100 mls/hr DAILY@09 IV 11/19/24 09:58 11/23/24 08:30 100 MLS/HR Sodium Chloride 1,000 ml @ 100 mls/hr Q10H IV 11/20/24 05:45 11/24/24 06:48 100 MLS/HR Sodium Chloride 10 ml QSHIFT@ IV 11/20/24 10:00 11/23/24 22:01 10 ML Norepinephrine Bitartrate 250 ml @ 1.875 mls/ hr Q24H IV 11/20/24 12:30 Methylprednisolone Sodium Succinate 40 mg BID IV 11/22/24 22:00 11/23/24 22:02 40 MG Chlordiazepoxide HCl 25 mg Q6HR PO 11/23/24 18:00 11/24/24 05:36 25 MG Amino Acids 0 ml @ 0 mls/hr PER PHARMACY IV 11/23/24 15:45 Amino Acids/ Electrolytes/ Dextrose 1,000 ml @ 41 mls/hr DAILY@2200 IV 11/23/24 22:00 11/23/24 22:01 41 MLS/HR Diagnostic Test (Pha) 1 strip Q6HR 11/24/24 00:00 11/24/24 05:36 1 STRIP Insulin Human Regular FOLLOW SLIDING SCALE Q6HR SC 11/24/24 00:00 Dextrose 50 ml UD IV 11/24/24 00:00 Laboratory Results Laboratory Tests 11/24/24 02:40 Chemistry Test 11/24/24 02:40 Albumin 3.4 g/dL (3.2-4.8) Calcium Level 9.0 mg/dL (8.7-10.4) Magnesium Level 2.3 mg/dL (1.6-2.6) Phosphorus Level 2.7 mg/dL (2.4-5.1) Total Protein 5.1 g/dL (5.7-8.2) L LFT Test 11/24/24 02:40 Alanine Aminotransferase (ALT) 32 U/L (7-40) Alkaline Phosphatase 48 U/L (46-116) Aspartate Amino Transferase (AST) 20 U/L (13-40) Total Bilirubin 0.7 mg/dL (0.2-1.0) Urinalysis Test 11/18/24 10:37 Urine Color Yellow (Yellow) Urine Clarity Clear (Clear) Urine pH 6.0 (5.0-9.0) Urine Specific [place] 1.024 (1.001-1.035) Urine Protein 2+ (Negative) H Urine Ketones Negative (Negative) Urine Blood Negative /uL (Negative) Urine Nitrite Negative (Negative) Urine Bilirubin Negative (Negative) Urine Urobilinogen Normal mg/dL (Negative) Urine Leukocyte Esterase Negative /uL (Negative) Urine RBC 1 /hpf (0 - 4) Urine Microscopic WBC 1 /HPF (0-5) Urine Squamous Epithelial Cells Few /hpf (<5) Urine Bacteria None seen /hpf (None Seen) Urine Hyaline Casts Few /lpf (0 - 2) Urine Mucus Few (None Seen) Urine Glucose 4+ mg/dL (Normal) H Blood Gas Results Test 11/24/24 06:57 Arterial Blood pH 7.400 (7.350-7.450) FiO2 % 30.0 Microbiology Microbiology Date/Time Source Procedure Growth Status 11/19/24 12:00 Nose MRSA Screen - Final Complete Labs and/or images reviewed: Labs reviewed by me, Image(s) reviewed by me Assessment/Plan Assessment/Plan Impression: -acute alcohol and substance abuse withdrawal -COPD with exacerbation -acute hypoxic respiratory failure -nicotine dependence -hyperkalemia Plan: Events: Spontaneous breathing trial today. Patient awake and following commands. -lorazepam p.r.n. withdrawal symptoms -continue Clinimix -continue Precedex and Librium -nicotine patch -continue bronchodilators -PUD prophylaxis -repeat labs, chest x-ray in a.m. Critical care time spent with patient discussing and formulating plan of care: 40 minutes. This does not include time spent performing procedures. This medical document was created using an electronic medical record system with [employer] dictation system. Although this document has been carefully reviewed, there may still be some phonetic and typographical errors. These areas are purely typographical due to imperfections of the software programs, and do not reflect any compromise in the patient's medical care. Plan discussed with: Patient, Other (RN) My Orders Orders - JEFF QUINN [employer] Procedure Category Date Status Time Chlordiazepoxide Hcl PHA 11/23/24 In Process Capsule (Librium Ca 18:00 Clinimix Per Pharmacy PHA 11/23/24 In Process 15:45 Amino Acid Infusion PHA 11/23/24 In Process In D10w (Clinimix 4. 22:00 Glucose Blood PHA 11/24/24 In Process (Accu-Chek Comfort 00:00 Insulin R (Human) PHA 11/24/24 In Process (Insulin R) 00:00 Dextrose 50% Syringe PHA 11/24/24 In Process 00:00 Clinimix Per Pharmacy [facility] 11/23/24 In Process 22:00 Cpap/Sed Vacation Med ORDERS 11/24/24 Transmitted Weaning 07:25 Cpap Trial For Am ORDERS 11/24/24 Transmitted 07:25 Basic Metabolic Panel LAB 11/25/24 Verified 04:00 Complete Blood Count LAB 11/25/24 Verified 04:00 Date of Service: Nov 24, 2024 Billing Provider: JEFF QUINN NP Common Visit Codes: [id number] CARE 30-74 MIN JEFF QUINN NP Nov 24, 2024 08:27
[2024-11-24 09:08] LABS: Base Excess 2.7 mmol/L (-2.0-3.0)
[2024-11-24] MEDS: LABETALOL HCL 20 MG/4 ML VL IV ONE (09:34)
[2024-11-24] MEDS: FUROSEMIDE 20 MG/2 ML VIAL ONE (09:35)
[2024-11-24] MEDS: NICARDIPINE HCL IN SODIUM CHLO 200 ML IV ONE (10:04)
[2024-11-24 10:26] LABS: Base Excess -4.4 mmol/L (-2.0-3.0)
--- NOTE | 2024-11-24 11:19 | DVH ---
EXAM: XY CHEST PORTABLE Indication: Intubated patient Technique: Single frontal view of the chest was obtained Comparison: XY CHEST PORTABLE on DOS: 11/23/24, XY CHEST PORTABLE on DOS: 11/22/24, XY CHEST PORTABLE on DOS: 11/21/24, XY CHEST PORTABLE on DOS: 11/20/24, XY CHEST PORTABLE on DOS: 11/20/24 FINDINGS: Lines and Tubes: Endotracheal tube, left PICC and enteric tube project in appropriate position. Lungs: No focal consolidation. Pleura: Trace left pleural effusion. No pneumothorax. Cardiomediastinal contours: Unremarkable Bones: No acute osseous abnormality. IMPRESSION: Lines and tubes are stable compared to prior exam. No significant change compared to prior exam.
[2024-11-24] MEDS: LABETALOL HCL 20 MG/4 ML VL IV PRN (11:28)
[2024-11-24] MEDS: FUROSEMIDE 20 MG/2 ML VIAL IV ONE ×2 (11:29→19:47)
[2024-11-24] MEDS: NICARDIPINE HCL IN SODIUM CHLO 200 ML IV SCH (11:30)
[2024-11-24 12:27] LABS: Base Excess 1.4 mmol/L (-2.0-3.0)
--- NOTE | 2024-11-24 14:47 | DVHPN2 ---
Progress Note Date Seen: Nov 24, 2024 Resident Creating Document: TORI MADERA Medical Necessity Reason Pt with a Central, PICC or Fol: No Subjective Review of Systems Patient is 63 years old female with past medical history of tonsillectomy in migraine presents to the ED due to worsening shortness of breaths. Patient also reported cough. Patient was brought in by EMS due to shortness of breaths and was hypoxic around 80s. UDS positive for amphetamine. CXR- Bibasilar airspace opacities. Due to worsening shortness of breaths patient was intubated on 11/19/2024. Patient is seen today for clinical evaluation. Labs and chart reviewed. Patient was extubated today morning. Patient is on BiPAP. Plan is to monitor ABG. Also monitor patient's mental status. Plan is to continue with PRN BiPAP and BiPAP at night Objective vital signs Vital Sign Date Time Temp Pulse Resp B/P (MAP) Pulse Ox O2 Delivery O2 Flow Rate FiO2 11/24/24 14:01 96 140/73 100 Facial BiPAP Mask 35 11/24/24 14:00 19 0 11/24/24 08:00 98.8 98.8 Total Intake and Output 11/23/24 11/23/24 11/24/24 15:00 23:00 07:00 Intake Total 1225.672 ml 1023.903 ml 1244.624 ml Output Total 525 ml 775 ml Balance 1225.672 ml 498.903 ml 469.624 ml medications Current Medications Medications Dose Ordered Sig/Teena Route Start Time Stop Time Status Last Admin Dose Admin Ondansetron HCl 4 mg Q4HP PRN IV 11/17/24 18:15 Docusate Sodium 100 mg BIDPRN PRN PO 11/17/24 18:15 Morphine Sulfate 2 mg Q4HPRN PRN IV 11/17/24 18:15 Enoxaparin Sodium 40 mg DAILY@1800 SC 11/17/24 18:15 11/23/24 18:11 40 MG Nitroglycerin 0.4 mg Q5MINP PRN SL 11/17/24 18:15 Lorazepam 1 mg Q2HPRN PRN IV 11/17/24 18:15 11/19/24 06:01 1 MG Levalbuterol HCl 0.625 mg Q4HR NEB 11/17/24 22:00 11/24/24 10:03 0.625 MG Ipratropium [place] 0.5 mg Q4HR NEB 11/17/24 22:00 11/24/24 10:03 0.5 MG Nicotine 1 patch DAILY@1800 TD 11/18/24 18:00 11/23/24 18:11 1 PATCH Midazolam HCl 50 ml @ 1 mls/hr Q24H IV 11/19/24 08:15 11/21/24 23:53 1 MLS/HR Propofol 100 ml @ 1.896 mls/ hr Q24H IV 11/19/24 08:45 11/24/24 01:45 5.688 MLS/HR Fentanyl Citrate 250 ml @ 2.5 mls/hr Q24H IV 11/19/24 08:45 11/24/24 02:46 5 MLS/HR Pantoprazole Sodium 40 mg DAILY IV 11/19/24 10:00 11/24/24 11:40 40 MG Azithromycin 250 ml @ 125 mls/hr DAILY IV 11/19/24 11:00 11/24/24 11:39 125 MLS/HR Ceftriaxone Sodium 50 ml @ 100 mls/hr DAILY@09 IV 11/19/24 09:58 11/24/24 11:40 100 MLS/HR Sodium Chloride 1,000 ml @ 100 mls/hr Q10H IV 11/20/24 05:45 11/24/24 06:48 100 MLS/HR Sodium Chloride 10 ml QSHIFT@10,22 IV 11/20/24 10:00 11/24/24 11:40 10 ML Norepinephrine Bitartrate 250 ml @ 1.875 mls/ hr Q24H IV 11/20/24 12:30 Methylprednisolone Sodium Succinate 40 mg BID IV 11/22/24 22:00 11/24/24 11:40 40 MG Chlordiazepoxide HCl 25 mg Q6HR PO 11/23/24 18:00 11/24/24 05:36 25 MG Amino Acids 0 ml @ 0 mls/hr PER PHARMACY IV 11/23/24 15:45 Amino Acids/ Electrolytes/ Dextrose 1,000 ml @ 41 mls/hr DAILY@2200 IV 11/23/24 22:00 11/23/24 22:01 41 MLS/HR Diagnostic Test (Pha) 1 strip Q6HR 11/24/24 00:00 11/24/24 12:41 1 STRIP Insulin Human Regular FOLLOW SLIDING SCALE Q6HR SC 11/24/24 00:00 Dextrose 50 ml UD IV 11/24/24 00:00 Labetalol HCl 10 mg Q2HPRN PRN IV 11/24/24 09:45 11/24/24 11:28 10 MG Nicardipine/ Sodium Chloride 200 ml @ 50 mls/hr Q4H IV 11/24/24 11:00 11/24/24 11:30 50 MLS/HR laboratory and microbiology Laboratory Tests 11/24/24 02:40 Test 11/24/24 02:40 Range/Units Serum Glucose 114 H 74-106 mg/dL Microbiology Date/Time Source Procedure Growth Status 11/19/24 12:00 Nose MRSA Screen - Final Complete Problem List/Assessment/Plan Problem List/Assessment/Plan Assessment/Plan Impression Acute hypoxemic respiratory failure Acute COPD exacerbation Pulmonary hypertension Substance abuse Patient seen and examined in ICU Events Patient was extubated today morning Patient on BiPAP Status post extubation Started on Librium for ? withdrawals Labs and imaging reviewed ABG reviewed -today at 1208 revealed pH 7.25, pCO2 72.4, PO2 91.7, bicarbonate 31.2 Ordered repeat ABG Management Titrate to maintain sats 90% or above Continue antibiotics-on ceftriaxone and azithromycin F/u cultures Bronchodilators Monitor renal function Monitor electrolytes Supplement as needed Pressors as needed for hemodynamic support To maintain a mean arterial pressure of 65 mmHg DVT prophylaxis PUD prophylaxis Critical care time >5 minutes Plan discussed with Dr. Donaldson , nursing staff, Total time spent on patient evaluation, chart review, assessment and plan, discussion discussion >35 minutes Plan discussed with: Patient, Other (RN) Dietary Evaluation Review Recommendations by RD: Protein Supplementation Comments: 1) Initiate Paulie @ 1 pk bid. Flush 30 mL free H2O AC/PC 2) Initiate MVI @ 1 tb qd 3) Initiate vitamin C @ 500 mg bid and zinc sulfate @ 220 mg qd for 7-10 days 4) If patient remains NPO > 7 days, consider EN/TPN to meet at least 75% of estimated daily needs 5) If gut is preferred, agree with previous recommendation of Jevity 1.2 @ 60 mL/hr goal rate as tolerated. Initiate @ 20 mL/hr and increase by 10 mL Q4H as tolerated until goal rate is reached. Flush with 150 mL free H2O Q6H. TF regimen provides 1918 kcal, 85g Pro (including Paulie @ 1 pk bid), and 1762 mL free H2O (including flushes) per 24 hrs. TF rate will meet 100% estimated energy needs and ~77% estimated protein needs 6) Collect HbA1C 7) Advance to 60g CCHO diet when medically feasible, pending speech therapy approval 8) Follow-up with pulmonology Expected Outcomes/Goals: 1) patient to receive nutrition support within 7 days of NPO status 2) labs and wound to improve 3) diet to advance 4) f/u in 2-3 days Date of Service: Nov 24, 2024 Billing Provider: ADRIANA LOPEZ MD Common Visit Codes: NOT BILLABLE TORI MADERA RESIDENT Nov 24, 2024 14:47 ADRIANA LOPEZ MD Dec 07, 2024 13:36
[2024-11-24 15:05] LABS: Base Excess 1.4 mmol/L (-2.0-3.0)
[2024-11-24] MEDS: FLUMAZENIL 0.1 MG/ML INJ 10ML MDV IV ONE (17:30)
[2024-11-25] VITALS (106 sets, daily range): BP systolic 111–165; BP diastolic 59–100; PULSE 86–120; RESP 11–39; TEMP 98.3–99.3; O2SAT 87–100
[2024-11-25 03:50] LABS: Basophils # (auto) 0 10 ^3/uL (0-0.2); Basophils % (auto) 0.1 % (0.0-2.0); Eosinophils # (auto) 0 10 ^3/uL (0-0.8); Hematocrit 44.9 % (36.0-46.0); Hemoglobin 14.5 g/dL (12.2-16.2); Lymphocytes # (auto) 0.5 10 ^3/uL (0.4-5.4); Lymphocytes % (auto) 3.9 % (10.0-50.0); Mean Corpuscular Hemoglobin 28.6 pg (28.0-32.0); Mean Corpuscular Hgb Conc. 32.3 g/dL (32.0-36.0); Mean Corpuscular Volume 88.7 fL (80.0-100.0); Monocytes # (auto) 0.6 10 ^3/uL (0-1.3); Neutrophils # (auto) 10.5 10 ^3/uL (1.6-8.6); Platelet Count (auto) 245 10^3/uL (140-450); Potassium 3.6 mmol/L (3.5-5.1); Red Blood Cells 5.06 10^6/uL (4.0-5.20); White Blood Cell 11.5 10^3/uL (4.4-10.8)
[2024-11-25 03:52] LABS: Calcium 9.1 mg/dL (8.7-10.4)
[2024-11-25 03:58] LABS: Albumin 3.7 g/dL (3.2-4.8)
[2024-11-25 03:59] LABS: Phosphorus 2.4 mg/dL (2.4-5.1)
--- NOTE | 2024-11-25 10:51 | DVHPN2 ---
Subjective Patient intubated, off sedation, following commands. Reviewed: Care Plan, H&P, Labs, Medications Changes from previous H/P or p: No Changes General: Per HPI Eyes: No Pain, No Vision change, No Conjunctivae inflammation, No Eyelid inflammation, No Other, No Redness ENT: No Ear pain, No Ear discharge, No Nose pain, No Nose discharge, No Nose congestion, No Mouth pain, No Mouth swelling, No Throat pain, No Throat swelling, No Other Cardiovascular: No Chest Pain, No Palpitations, No Orthopnea, No Paroxysmal Noc. Dyspnea, No Edema, No Lt Headedness, No Other Respiratory: No Cough, No Dry, No Shortness of breath, No SOB with excertion, No Wheezing, No Hemoptysis, No Pleuritic Pain, No Sputum, No Other Gastrointestinal: No Nausea, No Vomiting, No Abdominal Pain, No Diarrhea, No Constipation, No Melena, No Hematochezia, No Other Genitourinary: No Dysuria, No Frequency, No Incontinence, No Hematuria, No Retention, No Other Musculoskeletal: No other, No neck pain, No shoulder pain, No arm pain, No back pain, No hand pain, No leg pain, No foot pain Skin: No Rash, No Lesions, No Jaundice, No Bruising, No Other Objective Vitals Vital Signs Date Time Temp Pulse Resp B/P (MAP) Pulse Ox O2 Delivery O2 Flow Rate FiO2 11/25/24 10:14 103 27 96 11/25/24 10:08 50.0 40 11/25/24 10:08 Nasal Cannula 11/25/24 08:21 151/70 11/25/24 04:00 98.4 98.4 Intake/Output Intake and Output 11/25/24 07:00 Intake Total 2975 ml Output Total 6350 ml Balance -3375 ml Intake Oral 0 ml IV Total 2975 ml Output Urine Total 6350 ml General Appearance: Alert, Cooperative, mild distress, Other (sedated and intubated) HEENT: Atraumatic Lungs: Clear to auscultation, Normal air movement, Other (Mechanical ventilation) Cardiovascular: Normal S1, Normal S2 Abdomen: Normal bowel sounds, Soft Skin: Dry, Intact Psych/Mental Status: Other (Unable to assess) Medications Current Medications Medications Dose Ordered Sig/Teena Route Start Time Stop Time Status Last Admin Dose Admin Ondansetron HCl 4 mg Q4HP PRN IV 11/17/24 18:15 Docusate Sodium 100 mg BIDPRN PRN PO 11/17/24 18:15 Morphine Sulfate 2 mg Q4HPRN PRN IV 11/17/24 18:15 Enoxaparin Sodium 40 mg DAILY@1800 SC 11/17/24 18:15 11/24/24 18:43 40 MG Nitroglycerin 0.4 mg Q5MINP PRN SL 11/17/24 18:15 Lorazepam 1 mg Q2HPRN PRN IV 11/17/24 18:15 11/24/24 16:23 1 MG Levalbuterol HCl 0.625 mg Q4HR NEB 11/17/24 22:00 11/25/24 10:08 0.625 MG Ipratropium [place] 0.5 mg Q4HR NEB 11/17/24 22:00 11/25/24 10:08 0.5 MG Nicotine 1 patch DAILY@1800 TD 11/18/24 18:00 11/24/24 18:43 1 PATCH Midazolam HCl 50 ml @ 1 mls/hr Q24H IV 11/19/24 08:15 11/21/24 23:53 1 MLS/HR Propofol 100 ml @ 1.896 mls/ hr Q24H IV 11/19/24 08:45 11/24/24 01:45 5.688 MLS/HR Fentanyl Citrate 250 ml @ 2.5 mls/hr Q24H IV 11/19/24 08:45 11/24/24 02:46 5 MLS/HR Pantoprazole Sodium 40 mg DAILY IV 11/19/24 10:00 11/25/24 09:41 40 MG Azithromycin 250 ml @ 125 mls/hr DAILY IV 11/19/24 11:00 11/25/24 09:41 125 MLS/HR Ceftriaxone Sodium 50 ml @ 100 mls/hr DAILY@09 IV 11/19/24 09:58 11/25/24 09:22 100 MLS/HR Sodium Chloride 1,000 ml @ 100 mls/hr Q10H IV 11/20/24 05:45 11/25/24 01:56 100 MLS/HR Sodium Chloride 10 ml QSHIFT@10,22 IV 11/20/24 10:00 11/25/24 09:42 10 ML Norepinephrine Bitartrate 250 ml @ 1.875 mls/ hr Q24H IV 11/20/24 12:30 Methylprednisolone Sodium Succinate 40 mg BID IV 11/22/24 22:00 11/25/24 09:40 40 MG Chlordiazepoxide HCl 25 mg Q6HR PO 11/23/24 18:00 11/24/24 05:36 25 MG Amino Acids 0 ml @ 0 mls/hr PER PHARMACY IV 11/23/24 15:45 Amino Acids/ Electrolytes/ Dextrose 1,000 ml @ 41 mls/hr DAILY@2200 IV 11/23/24 22:00 11/24/24 21:28 41 MLS/HR Diagnostic Test (Pha) 1 strip Q6HR 11/24/24 00:00 11/25/24 05:37 1 STRIP Insulin Human Regular FOLLOW SLIDING SCALE Q6HR SC 11/24/24 00:00 11/25/24 05:37 2 UNITS Dextrose 50 ml UD IV 11/24/24 00:00 Labetalol HCl 10 mg Q2HPRN PRN IV 11/24/24 09:45 11/24/24 22:40 10 MG Nicardipine/ Sodium Chloride 200 ml @ 50 mls/hr Q4H IV 11/24/24 11:00 11/25/24 05:02 25 MLS/HR Laboratory Results Laboratory Tests 11/25/24 03:05 Chemistry Test 11/25/24 03:05 Albumin 3.7 g/dL (3.2-4.8) Calcium Level 9.1 mg/dL (8.7-10.4) Magnesium Level 2.0 mg/dL (1.6-2.6) Phosphorus Level 2.4 mg/dL (2.4-5.1) Urinalysis Test 11/18/24 10:37 Urine Color Yellow (Yellow) Urine Clarity Clear (Clear) Urine pH 6.0 (5.0-9.0) Urine Specific [place] 1.024 (1.001-1.035) Urine Protein 2+ (Negative) H Urine Ketones Negative (Negative) Urine Blood Negative /uL (Negative) Urine Nitrite Negative (Negative) Urine Bilirubin Negative (Negative) Urine Urobilinogen Normal mg/dL (Negative) Urine Leukocyte Esterase Negative /uL (Negative) Urine RBC 1 /hpf (0 - 4) Urine Microscopic WBC 1 /HPF (0-5) Urine Squamous Epithelial Cells Few /hpf (<5) Urine Bacteria None seen /hpf (None Seen) Urine Hyaline Casts Few /lpf (0 - 2) Urine Mucus Few (None Seen) Urine Glucose 4+ mg/dL (Normal) H Blood Gas Results Test 11/24/24 12:08 11/24/24 14:56 11/25/24 09:39 Arterial Blood pH 7.252 (7.350-7.450) 7.330 (7.350-7.450) 7.460 (7.350-7.450) FiO2 % 40.0 35.0 30.0 Microbiology Microbiology Date/Time Source Procedure Growth Status 11/19/24 12:00 Nose MRSA Screen - Final Complete Labs and/or images reviewed: Labs reviewed by me, Image(s) reviewed by me Assessment/Plan Assessment/Plan Impression: -acute alcohol and substance abuse withdrawal -COPD with exacerbation -acute hypoxic respiratory failure -nicotine dependence -hyperkalemia -hypertensive crisis Plan: Events: Patient extubated yesterday. Required BiPAP after extubation. Patient adequately IV diurese. -continue Librium, MVI -restart mechanical soft diet -Lasix 20 mg IV -potassium supplementation -lorazepam p.r.n. withdrawal symptoms -continue Clinimix -wean IV steroids -continue bronchodilators -PUD prophylaxis -repeat labs, chest x-ray in a.m. Critical care time spent with patient discussing and formulating plan of care: 40 minutes. This does not include time spent performing procedures. This medical document was created using an electronic medical record system with [employer] dictation system. Although this document has been carefully reviewed, there may still be some phonetic and typographical errors. These areas are purely typographical due to imperfections of the software programs, and do not reflect any compromise in the patient's medical care. Plan discussed with: Patient, Other (RN) My Orders Orders - JEFF QUINN NP Procedure Category Date Status Time Nicardipine Hcl In PHA 11/24/24 In Process Sodium Chlo (Cardene 11:00 Abg W/ Co-Ox RT 11/24/24 Logged 10:10 Clinimix Per Pharmacy [facility] 11/24/24 In Process 22:00 Comprehensive LAB 11/26/24 Verified Metabolic Panel 05:00 Phosphorus LAB 11/26/24 Verified 05:00 Magnesium LAB 11/26/24 Verified 05:00 Clinimix Per Pharmacy [facility] 11/25/24 In Process 22:00 Methylprednisolone PHA 11/26/24 Verified Sod Succ (Solu Medrol 10:00 Furosemide Injection PHA 11/25/24 Verified (Lasix Injection) 11:00 Potassium Chl Hema PHA 11/25/24 Verified KCL 11:00 Mechanical Soft Diet DIET 11/25/24 Verified Lunch Date of Service: Nov 25, 2024 Billing Provider: JEFF QUINN NP Common Visit Codes: [id number] CARE 30-74 MIN JEFF QUINN NP Nov 25, 2024 10:51
[2024-11-25] MEDS ORDERED: POTASSIUM CHL 20MEQ/100ML 100 ML IV ONE (11:00)
--- NOTE | 2024-11-25 11:14 | DVH ---
EXAM: XY CHEST XRAY 1 VIEW Indication: PNA Technique: Single frontal view of the chest was obtained Comparison: XY CHEST PORTABLE on DOS: 11/24/24, XY CHEST PORTABLE on DOS: 11/23/24, XY CHEST PORTABLE o n DOS: 11/22/24, XY CHEST PORTABLE on DOS: 11/21/24, XY CHEST PORTABLE on DOS: 11/20/24 FINDINGS: Lines and Tubes: Left PICC tip projects over the superior vena cava. Lungs: Pulmonary edema. Pleura: Trace bilateral pleural effusions. No pneumothorax. Cardiomediastinal contours: Unremarkable Bones: No acute osseous abnormality. IMPRESSION: Pulmonary edema and trace bilateral pleural effusions.
--- NOTE | 2024-11-25 12:58 | DVHPN2 ---
Progress Note Date Seen: Nov 25, 2024 Resident Creating Document: TORI MADERA RESIDENT Medical Necessity Reason Pt with a Central, PICC or Fol: No Subjective Review of Systems Patient is 63 years old female with past medical history of tonsillectomy in migraine presents to the ED due to worsening shortness of breaths. Patient also reported cough. Patient was brought in by EMS due to shortness of breaths and was hypoxic around 80s. UDS positive for amphetamine. CXR- Bibasilar airspace opacities. Due to worsening shortness of breaths patient was intubated on 11/19/2024. Patient is seen today for clinical evaluation. Labs and chart reviewed. Patient was extubated today morning. Patient was on BiPAP overnight. On also intermittently. Patient reported feeling much better today. Patient is more awake and alert today. Chest x-ray and ABG reviewed. Plan is to do physical therapy. And downgrade patient once appropriate. Objective vital signs Vital Sign Date Time Temp Pulse Resp B/P (MAP) Pulse Ox O2 Delivery O2 Flow Rate FiO2 11/25/24 12:15 106 11/25/24 12:15 24 97 Hi-Flow Heated NC+ 40 50 50 11/25/24 08:21 151/70 11/25/24 04:00 98.4 98.4 Total Intake and Output 11/24/24 11/24/24 11/25/24 15:00 23:00 07:00 Intake Total 728 ml 919 ml 1328 ml Output Total 2750 ml 3600 ml Balance 728 ml -1831 ml -2272 ml medications Current Medications Medications Dose Ordered Sig/Teena Route Start Time Stop Time Status Last Admin Dose Admin Ondansetron HCl 4 mg Q4HP PRN IV 11/17/24 18:15 Docusate Sodium 100 mg BIDPRN PRN PO 11/17/24 18:15 Morphine Sulfate 2 mg Q4HPRN PRN IV 11/17/24 18:15 Enoxaparin Sodium 40 mg DAILY@1800 SC 11/17/24 18:15 11/24/24 18:43 40 MG Nitroglycerin 0.4 mg Q5MINP PRN SL 11/17/24 18:15 Lorazepam 1 mg Q2HPRN PRN IV 11/17/24 18:15 11/24/24 16:23 1 MG Levalbuterol HCl 0.625 mg Q4HR NEB 11/17/24 22:00 11/25/24 10:08 0.625 MG Ipratropium [place] 0.5 mg Q4HR NEB 11/17/24 22:00 11/25/24 10:08 0.5 MG Nicotine 1 patch DAILY@1800 TD 11/18/24 18:00 11/24/24 18:43 1 PATCH Fentanyl Citrate 250 ml @ 2.5 mls/hr Q24H IV 11/19/24 08:45 11/24/24 02:46 5 MLS/HR Pantoprazole Sodium 40 mg DAILY IV 11/19/24 10:00 11/25/24 09:41 40 MG Azithromycin 250 ml @ 125 mls/hr DAILY IV 11/19/24 11:00 11/25/24 09:41 125 MLS/HR Ceftriaxone Sodium 50 ml @ 100 mls/hr DAILY@09 IV 11/19/24 09:58 11/25/24 09:22 100 MLS/HR Sodium Chloride 10 ml QSHIFT@10,22 IV 11/20/24 10:00 11/25/24 09:42 10 ML Norepinephrine Bitartrate 250 ml @ 1.875 mls/ hr Q24H IV 11/20/24 12:30 Chlordiazepoxide HCl 25 mg Q6HR PO 11/23/24 18:00 11/24/24 05:36 25 MG Amino Acids 0 ml @ 0 mls/hr PER PHARMACY IV 11/23/24 15:45 Amino Acids/ Electrolytes/ Dextrose 1,000 ml @ 41 mls/hr DAILY@2200 IV 11/23/24 22:00 11/24/24 21:28 41 MLS/HR Diagnostic Test (Pha) 1 strip Q6HR 11/24/24 00:00 11/25/24 12:17 1 STRIP Insulin Human Regular FOLLOW SLIDING SCALE Q6HR SC 11/24/24 00:00 11/25/24 12:17 4 UNITS Dextrose 50 ml UD IV 11/24/24 00:00 Labetalol HCl 10 mg Q2HPRN PRN IV 11/24/24 09:45 11/24/24 22:40 10 MG Nicardipine/ Sodium Chloride 200 ml @ 50 mls/hr Q4H IV 11/24/24 11:00 11/25/24 05:02 25 MLS/HR Methylprednisolone Sodium Succinate 40 mg DAILY IV 11/26/24 10:00 laboratory and microbiology Laboratory Tests 11/25/24 03:05 Test 11/25/24 03:05 Range/Units Serum Glucose 143 H 74-106 mg/dL Microbiology Date/Time Source Procedure Growth Status 11/19/24 12:00 Nose MRSA Screen - Final Complete Problem List/Assessment/Plan Problem List/Assessment/Plan Assessment/Plan Impression Acute hypoxemic respiratory failure Acute COPD exacerbation status post extubation Pulmonary hypertension Substance abuse Patient seen and examined in ICU Events No apneic episode today morning, likely apneic episode recording was arranged by the BiPAP admission as per RT, but admission has been changed Patient on BiPAP at nighttime. Status post extubation Disacontinued Nicardipine, Ordered Amlodipine Labs and imaging reviewed Management Titrate to maintain sats 90% or above Patient on high-flow nasal cannula Continue antibiotics-on ceftriaxone and azithromycin F/u cultures Bronchodilators continue amlodipine Monitor renal function Monitor electrolytes Supplement as needed Plan is to remove Santoro's catheter if appropriate and see the patient on the chair by the bedside DVT prophylaxis PUD prophylaxis Critical care time >5 minutes Plan discussed with Dr. Donaldson , nursing staff, Total time spent on patient evaluation, chart review, assessment and plan, discussion discussion >35 minutes Plan discussed with: Patient, Other (RN) My Orders My Orders Orders - TORI MADERA RESIDENT Procedure Category Date Status Time Abg W/ Co-Ox RT 11/24/24 Logged 14:47 BIPAP RT 11/24/24 Logged 15:09 Abg W/ Co-Ox RT 11/24/24 Logged 19:00 Chest Xray 1 View XY 11/25/24 Resulted 09:03 Abg W/ Co-Ox RT 11/25/24 Logged 09:30 Dietary Evaluation Review Recommendations by RD: Protein Supplementation Comments: 1) Initiate Paulie @ 1 pk bid. Flush 30 mL free H2O AC/PC 2) Initiate MVI @ 1 tb qd 3) Initiate vitamin C @ 500 mg bid and zinc sulfate @ 220 mg qd for 7-10 days 4) If patient remains NPO > 7 days, consider EN/TPN to meet at least 75% of estimated daily needs 5) If gut is preferred, agree with previous recommendation of Jevity 1.2 @ 60 mL/hr goal rate as tolerated. Initiate @ 20 mL/hr and increase by 10 mL Q4H as tolerated until goal rate is reached. Flush with 150 mL free H2O Q6H. TF regimen provides 1918 kcal, 85g Pro (including Paulie @ 1 pk bid), and 1762 mL free H2O (including flushes) per 24 hrs. TF rate will meet 100% estimated energy needs and ~77% estimated protein needs 6) Collect HbA1C 7) Advance to 60g CCHO diet when medically feasible, pending speech therapy approval 8) Follow-up with pulmonology Expected Outcomes/Goals: 1) patient to receive nutrition support within 7 days of NPO status 2) labs and wound to improve 3) diet to advance 4) f/u in 2-3 days Date of Service: Nov 25, 2024 Billing Provider: ADRIANA LOPEZ MD Common Visit Codes: NOT BILLABLE TORI MADERA RESIDENT Nov 25, 2024 12:58 ADRIANA LOPEZ MD Dec 07, 2024 13:41
[2024-11-25] MEDS: POTASSIUM PHOSPHATE 22 MEQ in SODIUM CHL 0.9% 100 ML IV ONE (14:17)
[2024-11-25] MEDS: FUROSEMIDE 20 MG/2 ML VIAL IV ONE (14:31)
[2024-11-26] VITALS (108 sets, daily range): BP systolic 132–195; BP diastolic 57–149; PULSE 77–110; RESP 11–38; TEMP 98.2–98.5; O2SAT 84–99
[2024-11-26 04:30] LABS: Basophils # (auto) 0 10 ^3/uL (0-0.2); Basophils % (auto) 0.1 % (0.0-2.0); Eosinophils # (auto) 0 10 ^3/uL (0-0.8); Eosinophils % (auto) 0.1 % (0.0-7.0); Hematocrit 47.6 % (36.0-46.0); Hemoglobin 15.4 g/dL (12.2-16.2); Mean Corpuscular Hemoglobin 28.6 pg (28.0-32.0); Mean Corpuscular Hgb Conc. 32.3 g/dL (32.0-36.0); Mean Corpuscular Volume 88.4 fL (80.0-100.0); Monocytes # (auto) 1.7 10 ^3/uL (0-1.3); Monocytes % (auto) 10.3 % (0.0-12.0); Neutrophils # (auto) 13.8 10 ^3/uL (1.6-8.6); Neutrophils % (auto) 83.5 % (37.0-80.0); Platelet Count (auto) 285 10^3/uL (140-450); Red Blood Cells 5.38 10^6/uL (4.0-5.20); Red Cell Distribution Width 13.8 % (11.8-14.3); White Blood Cell 16.5 10^3/uL (4.4-10.8)
[2024-11-26 04:38] LABS: Alkaline Phosphatase 54 U/L (46-116); Aspartate Aminotransferase 26 U/L (0-34); Blood Urea Nitrogen 20 mg/dL (9-23); Calcium 9.3 mg/dL (8.7-10.4); Sodium 138 mmol/L (136-145)
[2024-11-26 04:39] LABS: Albumin 3.4 g/dL (3.2-4.8); Bilirubin, Total 0.9 mg/dL (0.2-1.0)
[2024-11-26 04:42] LABS: Chloride 92 mmol/L (98-107); Potassium 3.3 mmol/L (3.5-5.1)
[2024-11-26 04:43] LABS: Alanine Aminotransferase 51 U/L (7-40); Anion Gap 5.99999 (5-15); Carbon Dioxide > 40 mmol/L (20-31); Glucose 147 mg/dL (74-106); Total Protein 5.1 g/dL (5.7-8.2)
[2024-11-26 04:44] LABS: BUN/Creatinine Ratio 31.3 (10.0-20.0)
[2024-11-26] MEDS: POTASSIUM CHL 20MEQ/100ML 100 ML IV ONE (05:42)
[2024-11-26 06:29] LABS: Base Excess 8.8 mmol/L (-2.0-3.0)
[2024-11-26] MEDS: FUROSEMIDE 20 MG TAB PO SCH (09:01)
[2024-11-26] MEDS: methylPREDNISolone SOD SUCC 40 MG/ML VL IV SCH (09:02)
[2024-11-26] MEDS: amLODIPine BESYLATE 5 MG TAB PO SCH (09:03)
--- NOTE | 2024-11-26 09:12 | DVHPN2 ---
Subjective Patient was alert, following commands. Denies any symptoms at this time. Reviewed: Care Plan, H&P, Labs, Medications Changes from previous H/P or p: No Changes General: Per HPI Eyes: No Pain, No Vision change, No Conjunctivae inflammation, No Eyelid inflammation, No Other, No Redness ENT: No Ear pain, No Ear discharge, No Nose pain, No Nose discharge, No Nose congestion, No Mouth pain, No Mouth swelling, No Throat pain, No Throat swelling, No Other Cardiovascular: No Chest Pain, No Palpitations, No Orthopnea, No Paroxysmal Noc. Dyspnea, No Edema, No Lt Headedness, No Other Respiratory: No Cough, No Dry, No Shortness of breath, No SOB with excertion, No Wheezing, No Hemoptysis, No Pleuritic Pain, No Sputum, No Other Gastrointestinal: No Nausea, No Vomiting, No Abdominal Pain, No Diarrhea, No Constipation, No Melena, No Hematochezia, No Other Genitourinary: No Dysuria, No Frequency, No Incontinence, No Hematuria, No Retention, No Other Musculoskeletal: No other, No neck pain, No shoulder pain, No arm pain, No back pain, No hand pain, No leg pain, No foot pain Skin: No Rash, No Lesions, No Jaundice, No Bruising, No Other Objective Vitals Vital Signs Date Time Temp Pulse Resp B/P (MAP) Pulse Ox O2 Delivery O2 Flow Rate FiO2 11/26/24 09:03 165/138 11/26/24 08:15 87 11 99 11/26/24 08:00 98.2 98.2 11/26/24 06:18 45.0 35 11/26/24 06:00 Hi-Flow Heated NC+ Intake/Output Intake and Output 11/26/24 07:00 Intake Total 1716.5 ml Output Total 4425 ml Balance -2708.5 ml Intake Oral 640 ml IV Total 1076.5 ml Output Urine Total 4425 ml General Appearance: Alert, Oriented X3, Cooperative, mild distress, Other (sedated and intubated) HEENT: Atraumatic Lungs: Clear to auscultation, Normal air movement, Other (High-flow nasal cannula with 45 L flow and 35% FiO2) Cardiovascular: Normal S1, Normal S2 Abdomen: Normal bowel sounds, Soft Musculoskeletal: Normal sensory function, Normal motor function Skin: Dry, Intact Psych/Mental Status: Other (Unable to assess) Medications Current Medications Medications Dose Ordered Sig/Teena Route Start Time Stop Time Status Last Admin Dose Admin Ondansetron HCl 4 mg Q4HP PRN IV 11/17/24 18:15 Docusate Sodium 100 mg BIDPRN PRN PO 11/17/24 18:15 Morphine Sulfate 2 mg Q4HPRN PRN IV 11/17/24 18:15 Enoxaparin Sodium 40 mg DAILY@1800 SC 11/17/24 18:15 11/25/24 18:32 40 MG Nitroglycerin 0.4 mg Q5MINP PRN SL 11/17/24 18:15 Lorazepam 1 mg Q2HPRN PRN IV 11/17/24 18:15 11/24/24 16:23 1 MG Levalbuterol HCl 0.625 mg Q4HR NEB 11/17/24 22:00 11/26/24 06:18 0.625 MG Ipratropium [place] 0.5 mg Q4HR NEB 11/17/24 22:00 11/26/24 06:18 0.5 MG Nicotine 1 patch DAILY@1800 TD 11/18/24 18:00 11/25/24 18:34 1 PATCH Pantoprazole Sodium 40 mg DAILY IV 11/19/24 10:00 11/26/24 09:00 40 MG Ceftriaxone Sodium 50 ml @ 100 mls/hr DAILY@09 IV 11/19/24 09:58 11/26/24 09:00 100 MLS/HR Sodium Chloride 10 ml QSHIFT@10,22 IV 11/20/24 10:00 11/26/24 09:04 10 ML Chlordiazepoxide HCl 25 mg Q6HR PO 11/23/24 18:00 11/26/24 05:41 25 MG Diagnostic Test (Pha) 1 strip Q6HR 11/24/24 00:00 11/26/24 05:59 1 STRIP Insulin Human Regular FOLLOW SLIDING SCALE Q6HR SC 11/24/24 00:00 11/26/24 06:00 2 UNITS Dextrose 50 ml UD IV 11/24/24 00:00 Labetalol HCl 10 mg Q2HPRN PRN IV 11/24/24 09:45 11/26/24 08:06 10 MG Methylprednisolone Sodium Succinate 40 mg DAILY IV 11/26/24 10:00 11/26/24 09:02 40 MG Amlodipine Besylate 10 mg DAILY PO 11/26/24 10:00 11/26/24 09:03 10 MG Furosemide 20 mg DAILY PO 11/26/24 10:00 11/26/24 09:01 20 MG Laboratory Results Laboratory Tests 11/26/24 03:50 Chemistry Test 11/26/24 03:50 Albumin 3.4 g/dL (3.2-4.8) Calcium Level 9.3 mg/dL (8.7-10.4) Magnesium Level 2.0 mg/dL (1.6-2.6) Total Protein 5.1 g/dL (5.7-8.2) L LFT Test 11/26/24 03:50 Alanine Aminotransferase (ALT) 51 U/L (7-40) H Alkaline Phosphatase 54 U/L (46-116) Aspartate Amino Transferase (AST) 26 U/L (0-34) Total Bilirubin 0.9 mg/dL (0.2-1.0) Urinalysis Test 11/18/24 10:37 Urine Color Yellow (Yellow) Urine Clarity Clear (Clear) Urine pH 6.0 (5.0-9.0) Urine Specific [place] 1.024 (1.001-1.035) Urine Protein 2+ (Negative) H Urine Ketones Negative (Negative) Urine Blood Negative /uL (Negative) Urine Nitrite Negative (Negative) Urine Bilirubin Negative (Negative) Urine Urobilinogen Normal mg/dL (Negative) Urine Leukocyte Esterase Negative /uL (Negative) Urine RBC 1 /hpf (0 - 4) Urine Microscopic WBC 1 /HPF (0-5) Urine Squamous Epithelial Cells Few /hpf (<5) Urine Bacteria None seen /hpf (None Seen) Urine Hyaline Casts Few /lpf (0 - 2) Urine Mucus Few (None Seen) Urine Glucose 4+ mg/dL (Normal) H Blood Gas Results Test 11/25/24 09:39 11/26/24 06:21 Arterial Blood pH 7.460 (7.350-7.450) 7.403 (7.350-7.450) FiO2 % 30.0 35.0 Microbiology Microbiology Date/Time Source Procedure Growth Status 11/19/24 12:00 Nose MRSA Screen - Final Complete Labs and/or images reviewed: Labs reviewed by me, Image(s) reviewed by me Assessment/Plan Assessment/Plan Impression: -acute alcohol and substance abuse withdrawal -COPD with exacerbation -acute hypoxic respiratory failure -nicotine dependence -hyperkalemia -hypertensive crisis Plan: Events: Patient clinically improving. Continues to be hypertensive. Start amlodipine, continue diuresis with Lasix -continue Librium, MVI -wean high-flow: Decrease flow rate and FiO2 given saturations 97% -lorazepam p.r.n. withdrawal symptoms -wean IV steroids -continue bronchodilators -PUD prophylaxis -repeat labs, chest x-ray in a.m. Critical care time spent with patient discussing and formulating plan of care: 40 minutes. This does not include time spent performing procedures. This medical document was created using an electronic medical record system with [employer] dictation system. Although this document has been carefully reviewed, there may still be some phonetic and typographical errors. These areas are purely typographical due to imperfections of the software programs, and do not reflect any compromise in the patient's medical care. Plan discussed with: Patient, Other (RN) My Orders Orders - JEFF QUINN NP Procedure Category Date Status Time Clinimix Per Pharmacy SELWYN 11/25/24 In Process 22:00 Methylprednisolone PHA 11/26/24 In Process Sod Succ (Solu Medrol 10:00 Mechanical Soft Diet DIET 11/25/24 Transmitted Lunch Amlodipine Tablet PHA 11/26/24 In Process (Norvasc Tablet) 10:00 Furosemide Tablet PHA 11/26/24 In Process (Lasix Tablet) 10:00 Date of Service: Nov 26, 2024 Billing Provider: JEFF QUINN NP Common Visit Codes: [id number] CARE 30-74 MIN JEFF QUINN NP Nov 26, 2024 09:12
[2024-11-26] MEDS ORDERED: amLODIPine BESYLATE 5 MG TAB PO SCH (10:00)
--- NOTE | 2024-11-26 10:03 | DVHPN2 ---
Progress Note Date Seen: Nov 26, 2024 Resident Creating Document: TORI MADERA RESIDENT Medical Necessity Reason Pt with a Central, PICC or Fol: No Subjective Review of Systems Patient is 63 years old female with past medical history of tonsillectomy in migraine presents to the ED due to worsening shortness of breaths. Patient also reported cough. Patient was brought in by EMS due to shortness of breaths and was hypoxic around 80s. UDS positive for amphetamine. CXR- Bibasilar airspace opacities. Due to worsening shortness of breaths patient was intubated on 11/19/2024. Patient is seen today for clinical evaluation. Labs and chart reviewed. Patient on NCO2 2L/min, lung crackles bilaterally present. Leukocytosis trending up WBC 16.5. hypokalemia supplemented. Ordered blood culture, urine culture, respiratory culture. Increase Lasix from 20-40 mg IV daily, ordered acetazolamide 250 mg p.o. b.i.d. for 3 days. Objective vital signs Vital Sign Date Time Temp Pulse Resp B/P (MAP) Pulse Ox O2 Delivery O2 Flow Rate FiO2 11/26/24 09:45 99 20 194/90 (124) 94 11/26/24 08:00 Hi-Flow Heated NC+ 40 35 35 11/26/24 08:00 98.2 98.2 Total Intake and Output 11/25/24 11/25/24 11/26/24 15:00 23:00 07:00 Intake Total 971.5 ml 505 ml 240 ml Output Total 3975 ml 450 ml Balance 971.5 ml -3470 ml -210 ml medications Current Medications Medications Dose Ordered Sig/Teena Route Start Time Stop Time Status Last Admin Dose Admin Ondansetron HCl 4 mg Q4HP PRN IV 11/17/24 18:15 Docusate Sodium 100 mg BIDPRN PRN PO 11/17/24 18:15 Morphine Sulfate 2 mg Q4HPRN PRN IV 11/17/24 18:15 Enoxaparin Sodium 40 mg DAILY@1800 SC 11/17/24 18:15 11/25/24 18:32 40 MG Nitroglycerin 0.4 mg Q5MINP PRN SL 11/17/24 18:15 Lorazepam 1 mg Q2HPRN PRN IV 11/17/24 18:15 11/24/24 16:23 1 MG Levalbuterol HCl 0.625 mg Q4HR NEB 11/17/24 22:00 11/26/24 06:18 0.625 MG Ipratropium [place] 0.5 mg Q4HR NEB 11/17/24 22:00 11/26/24 06:18 0.5 MG Nicotine 1 patch DAILY@1800 TD 11/18/24 18:00 11/25/24 18:34 1 PATCH Pantoprazole Sodium 40 mg DAILY IV 11/19/24 10:00 11/26/24 09:00 40 MG Ceftriaxone Sodium 50 ml @ 100 mls/hr DAILY@09 IV 11/19/24 09:58 11/26/24 09:00 100 MLS/HR Sodium Chloride 10 ml QSHIFT@ IV 11/20/24 10:00 11/26/24 09:04 10 ML Chlordiazepoxide HCl 25 mg Q6HR PO 11/23/24 18:00 11/26/24 05:41 25 MG Diagnostic Test (Pha) 1 strip Q6HR 11/24/24 00:00 11/26/24 05:59 1 STRIP Insulin Human Regular FOLLOW SLIDING SCALE Q6HR SC 11/24/24 00:00 11/26/24 06:00 2 UNITS Dextrose 50 ml UD IV 11/24/24 00:00 Labetalol HCl 10 mg Q2HPRN PRN IV 11/24/24 09:45 11/26/24 08:06 10 MG Methylprednisolone Sodium Succinate 40 mg DAILY IV 11/26/24 10:00 11/26/24 09:02 40 MG Amlodipine Besylate 10 mg DAILY PO 11/26/24 10:00 11/26/24 09:03 10 MG Furosemide 20 mg DAILY PO 11/26/24 10:00 11/26/24 09:01 20 MG laboratory and microbiology Laboratory Tests 11/26/24 03:50 Test 11/26/24 03:50 Range/Units Serum Glucose 147 H 74-106 mg/dL Microbiology Date/Time Source Procedure Growth Status 11/19/24 12:00 Nose MRSA Screen - Final Complete Problem List/Assessment/Plan Problem List/Assessment/Plan Assessment/Plan Impression Acute hypoxemic respiratory failure Acute COPD exacerbation status post extubation Pulmonary hypertension Substance abuse Patient seen and examined in ICU Events Patient on NC O2 2 L/min Patient is awake and alert Bilateral lung crackles+ Leukocytosis trending Labs and imaging reviewed Management Ordered blood culture, urine culture, sputum culture Increase Lasix from 20-40 mg IV daily Ordered acetazolamide 250 mg p.o. b.i.d. for 3 days Discontinued Solu-Medrol, ordered prednisolone 40 mg p.o. daily for 5 days Plan is to eval for oxygen recommended at home before discharge Librium discontinued as per Dr. Palomares recommendation Continue physical therapy Titrate to maintain sats 90% or above Continue antibiotics-on ceftriaxone and azithromycin F/u cultures Bronchodilators continue amlodipine Monitor renal function Monitor electrolytes Supplement as needed DVT prophylaxis PUD prophylaxis Plan discussed with Dr. Donaldson , nursing staff, Total time spent on patient evaluation, chart review, assessment and plan, discussion discussion >35 minutes Plan discussed with: Patient, Other (RN) My Orders My Orders Orders - TORI MADERA RESIDENT Procedure Category Date Status Time Communication Order ORDERS 11/25/24 Transmitted 12:56 BIPAP RT 11/25/24 Logged 22:52 Chest Xray 1 View XY 11/26/24 Logged 07:36 Urine Bacterial JOEL 11/26/24 Logged Culture 07:39 Respiratory Culture JOEL 11/26/24 Logged W/ Gs 07:39 Blood Culture JOEL 11/26/24 In Process 07:39 Dietary Evaluation Review Recommendations by RD: Protein Supplementation Comments: 1) Initiate Paulie @ 1 pk bid. Flush 30 mL free H2O AC/PC 2) Initiate MVI @ 1 tb qd 3) Initiate vitamin C @ 500 mg bid and zinc sulfate @ 220 mg qd for 7-10 days 4) If patient remains NPO > 7 days, consider EN/TPN to meet at least 75% of estimated daily needs 5) If gut is preferred, agree with previous recommendation of Jevity 1.2 @ 60 mL/hr goal rate as tolerated. Initiate @ 20 mL/hr and increase by 10 mL Q4H as tolerated until goal rate is reached. Flush with 150 mL free H2O Q6H. TF regimen provides 1918 kcal, 85g Pro (including Paulie @ 1 pk bid), and 1762 mL free H2O (including flushes) per 24 hrs. TF rate will meet 100% estimated energy needs and ~77% estimated protein needs 6) Collect HbA1C 7) Advance to 60g CCHO diet when medically feasible, pending speech therapy approval 8) Follow-up with pulmonology Expected Outcomes/Goals: 1) patient to receive nutrition support within 7 days of NPO status 2) labs and wound to improve 3) diet to advance 4) f/u in 2-3 days Date of Service: Nov 26, 2024 Billing Provider: ADRIANA LOPEZ MD Common Visit Codes: NOT BILLABLE TORI MADERA RESIDENT Nov 26, 2024 10:03 ADRIANA LOPEZ MD Nov 27, 2024 14:47
--- NOTE | 2024-11-26 11:27 | DVH ---
EXAM: XY CHEST XRAY 1 VIEW Indication: Pain; PNA Technique: Single frontal view of the chest was obtained Comparison: XY CHEST XRAY 1 VIEW on DOS: 11/25/24, XY CHEST PORTABLE on DOS: 11/24/24, XY CHEST PORTABL E on DOS: 11/23/24, XY CHEST PORTABLE on DOS: 11/22/24, XY CHEST PORTABLE on DOS: 11/21/24 FINDINGS: Lines and Tubes: None Lungs: No focal consolidation. Pulmonary vascular congestion. Pleura: No effusion. No pneumothorax. Cardiomediastinal contours: Unchanged. Bones: No acute osseous abnormality. IMPRESSION: Pulmonary vascular congestion.
[2024-11-26] MEDS: FUROSEMIDE 20 MG/2 ML VIAL IV ONE (15:02)
[2024-11-26] MEDS: acetaZOLAMIDE 250 MG TAB PO ONE (15:05)
[2024-11-26] MEDS: acetaZOLAMIDE 250 MG TAB PO SCH (22:22)
[2024-11-27] VITALS (47 sets, daily range): BP systolic 116–194; BP diastolic 69–126; PULSE 81–116; RESP 10–35; TEMP 97.1–98.9; O2SAT 92–100
--- NOTE | 2024-11-27 08:40 | DVHPN2 ---
Subjective Patient denies any symptoms at this time. Reviewed: Care Plan, H&P, Labs, Medications Changes from previous H/P or p: Changes General: Per HPI Eyes: No Pain, No Vision change, No Conjunctivae inflammation, No Eyelid inflammation, No Other, No Redness ENT: No Ear pain, No Ear discharge, No Nose pain, No Nose discharge, No Nose congestion, No Mouth pain, No Mouth swelling, No Throat pain, No Throat swelling, No Other Cardiovascular: No Chest Pain, No Palpitations, No Orthopnea, No Paroxysmal Noc. Dyspnea, No Edema, No Lt Headedness, No Other Respiratory: No Cough, No Dry, No Shortness of breath, No SOB with excertion, No Wheezing, No Hemoptysis, No Pleuritic Pain, No Sputum, No Other Gastrointestinal: No Nausea, No Vomiting, No Abdominal Pain, No Diarrhea, No Constipation, No Melena, No Hematochezia, No Other Genitourinary: No Dysuria, No Frequency, No Incontinence, No Hematuria, No Retention, No Other Musculoskeletal: No other, No neck pain, No shoulder pain, No arm pain, No back pain, No hand pain, No leg pain, No foot pain Skin: No Rash, No Lesions, No Jaundice, No Bruising, No Other Objective Vitals Vital Signs Date Time Temp Pulse Resp B/P (MAP) Pulse Ox O2 Delivery O2 Flow Rate FiO2 11/27/24 08:00 98.5 97 24 158/90 (112) 96 98.5 11/27/24 07:30 Nasal Cannula* 1 24 Intake/Output Intake and Output 11/27/24 07:00 Intake Total 1400 ml Output Total 1700 ml Balance -300 ml Intake Oral 1350 ml IV Total 50 ml Output Urine Total 1700 ml # Voids 9 General Appearance: Alert, Oriented X3, Cooperative, mild distress, Other (sedated and intubated) HEENT: Atraumatic, PERRLA Lungs: Clear to auscultation, Normal air movement, Other (Nasal cannula at 2 L/min) Cardiovascular: Normal S1, Normal S2 Abdomen: Normal bowel sounds, Soft Musculoskeletal: Normal sensory function, Normal motor function Neuro: Normal tone, Sensation intact, Cranial nerves 3-12 NL Skin: Dry, Intact Psych/Mental Status: Other (Anxious) Medications Current Medications Medications Dose Ordered Sig/Teena Route Start Time Stop Time Status Last Admin Dose Admin Ondansetron HCl 4 mg Q4HP PRN IV 11/17/24 18:15 Docusate Sodium 100 mg BIDPRN PRN PO 11/17/24 18:15 Morphine Sulfate 2 mg Q4HPRN PRN IV 11/17/24 18:15 Enoxaparin Sodium 40 mg DAILY@1800 SC 11/17/24 18:15 11/26/24 17:50 40 MG Nitroglycerin 0.4 mg Q5MINP PRN SL 11/17/24 18:15 Lorazepam 1 mg Q2HPRN PRN IV 11/17/24 18:15 11/24/24 16:23 1 MG Levalbuterol HCl 0.625 mg Q4HR NEB 11/17/24 22:00 11/27/24 06:56 0.625 MG Ipratropium [place] 0.5 mg Q4HR NEB 11/17/24 22:00 11/27/24 06:56 0.5 MG Nicotine 1 patch DAILY@1800 TD 11/18/24 18:00 11/26/24 17:51 1 PATCH Pantoprazole Sodium 40 mg DAILY IV 11/19/24 10:00 11/26/24 09:00 40 MG Ceftriaxone Sodium 50 ml @ 100 mls/hr DAILY@09 IV 11/19/24 09:58 11/26/24 09:00 100 MLS/HR Sodium Chloride 10 ml QSHIFT@10,22 IV 11/20/24 10:00 11/26/24 22:22 10 ML Diagnostic Test (Pha) 1 strip Q6HR 11/24/24 00:00 11/26/24 23:55 1 STRIP Insulin Human Regular FOLLOW SLIDING SCALE Q6HR SC 11/24/24 00:00 11/26/24 23:57 2 UNITS Dextrose 50 ml UD IV 11/24/24 00:00 Labetalol HCl 10 mg Q2HPRN PRN IV 11/24/24 09:45 11/26/24 17:51 10 MG Amlodipine Besylate 10 mg DAILY PO 11/26/24 10:00 11/26/24 09:03 10 MG Furosemide 40 mg DAILY IV 11/27/24 10:00 Prednisone 40 mg DAILY PO 11/27/24 10:00 12/02/24 09:59 Laboratory Results Laboratory Tests 11/26/24 03:50 Urinalysis Test 11/18/24 10:37 Urine Color Yellow (Yellow) Urine Clarity Clear (Clear) Urine pH 6.0 (5.0-9.0) Urine Specific [place] 1.024 (1.001-1.035) Urine Protein 2+ (Negative) H Urine Ketones Negative (Negative) Urine Blood Negative /uL (Negative) Urine Nitrite Negative (Negative) Urine Bilirubin Negative (Negative) Urine Urobilinogen Normal mg/dL (Negative) Urine Leukocyte Esterase Negative /uL (Negative) Urine RBC 1 /hpf (0 - 4) Urine Microscopic WBC 1 /HPF (0-5) Urine Squamous Epithelial Cells Few /hpf (<5) Urine Bacteria None seen /hpf (None Seen) Urine Hyaline Casts Few /lpf (0 - 2) Urine Mucus Few (None Seen) Urine Glucose 4+ mg/dL (Normal) H Microbiology Microbiology Date/Time Source Procedure Growth Status 11/19/24 12:00 Nose MRSA Screen - Final Complete Labs and/or images reviewed: Labs reviewed by me, Image(s) reviewed by me Assessment/Plan Assessment/Plan Impression: -acute alcohol and substance abuse withdrawal -COPD with exacerbation -acute hypoxic respiratory failure -nicotine dependence -hyperkalemia -hypertensive crisis Plan: Events: Patient now on 2 L via nasal cannula. Patient reports that she has been ambulating around the room. Denies any dyspnea at this time. -continue Librium, MVI -continue nasal cannula to keep O2 greater than 91 % -lorazepam p.r.n. withdrawal symptoms -wean IV steroids -continue bronchodilators -PUD prophylaxis -repeat labs, chest x-ray in a.m. -transfer to telemetry floor Total time spent with patient discussing and formulating plan of care: 35 minutes. This medical document was created using an electronic medical record system with [employer] dictation system. Although this document has been carefully reviewed, there may still be some phonetic and typographical errors. These areas are purely typographical due to imperfections of the software programs, and do not reflect any compromise in the patient's medical care. Plan discussed with: Patient, Other (RN) My Orders Orders - JEFF QUINN NP Procedure Category Date Status Time Basic Metabolic Panel LAB 11/28/24 Verified 04:00 Chest Portable XY 11/28/24 Logged 04:00 Magnesium LAB 11/28/24 Verified 04:00 Complete Blood Count LAB 11/28/24 Verified 05:00 Complete Blood Count LAB 11/29/24 Verified 05:00 Complete Blood Count LAB 11/30/24 Verified 05:00 Ipratropium Medneb PHA 11/27/24 Verified (Atrovent Medneb) 12:00 Levalbuterol Hcl PHA 11/27/24 Verified (Xopenex Medneb) 12:00 Transfer Orders XFER 11/27/24 Verified 08:37 Date of Service: Nov 27, 2024 Billing Provider: JEFF QUINN NP Common Visit Codes: [id number] INP/OBS CARE(HIGH) JEFF QUINN NP Nov 27, 2024 08:40
[2024-11-27] MEDS: predniSONE 20 MG TAB PO SCH (09:56)
[2024-11-27] MEDS: FUROSEMIDE 40 MG/4 ML VIAL IV SCH (09:56)
[2024-11-27] MEDS: LEVALBUTEROL HCL 1.25 MG/3 ML NEB NEB SCH (11:08)
[2024-11-27] MEDS: IPRATROPIUM BROM 0.5 MG/2.5ML INH SOL NEB SCH (11:08)
--- NOTE | 2024-11-27 13:47 | DVHPN2 ---
Progress Note - Dictate Date Seen: Nov 27, 2024 Medical Necessity Reason Pt with a Central, PICC or Fol: No vital signs Vital Sign Date Time Temp Pulse Resp B/P (MAP) Pulse Ox O2 Delivery O2 Flow Rate FiO2 11/27/24 12:00 20 95 Nasal Cannula* 1 24 11/27/24 12:00 113 11/27/24 10:00 164/108 (126) 11/27/24 08:00 98.5 98.5 Total Intake and Output 11/26/24 11/26/24 11/27/24 15:00 23:00 07:00 Intake Total 50 ml 990 ml 360 ml Output Total 1700 ml Balance 50 ml -710 ml 360 ml medications Current Medications Medications Dose Ordered Sig/Teena Route Start Time Stop Time Status Last Admin Dose Admin Ondansetron HCl 4 mg Q4HP PRN IV 11/17/24 18:15 Docusate Sodium 100 mg BIDPRN PRN PO 11/17/24 18:15 Morphine Sulfate 2 mg Q4HPRN PRN IV 11/17/24 18:15 Enoxaparin Sodium 40 mg DAILY@1800 SC 11/17/24 18:15 11/26/24 17:50 40 MG Nitroglycerin 0.4 mg Q5MINP PRN SL 11/17/24 18:15 Lorazepam 1 mg Q2HPRN PRN IV 11/17/24 18:15 11/24/24 16:23 1 MG Nicotine 1 patch DAILY@1800 TD 11/18/24 18:00 11/26/24 17:51 1 PATCH Pantoprazole Sodium 40 mg DAILY IV 11/19/24 10:00 11/27/24 09:55 40 MG Ceftriaxone Sodium 50 ml @ 100 mls/hr DAILY@09 IV 11/19/24 09:58 11/27/24 09:55 100 MLS/HR Sodium Chloride 10 ml QSHIFT@10,22 IV 11/20/24 10:00 11/27/24 09:57 10 ML Diagnostic Test (Pha) 1 strip Q6HR 11/24/24 00:00 11/26/24 23:55 1 STRIP Insulin Human Regular FOLLOW SLIDING SCALE Q6HR SC 11/24/24 00:00 11/26/24 23:57 2 UNITS Dextrose 50 ml UD IV 11/24/24 00:00 Labetalol HCl 10 mg Q2HPRN PRN IV 11/24/24 09:45 11/26/24 17:51 10 MG Amlodipine Besylate 10 mg DAILY PO 11/26/24 10:00 11/27/24 09:57 10 MG Furosemide 40 mg DAILY IV 11/27/24 10:00 11/27/24 09:56 40 MG Prednisone 40 mg DAILY PO 11/27/24 10:00 12/02/24 09:59 11/27/24 09:56 40 MG Ipratropium [place] 0.5 mg Q6HWA NEB 11/27/24 12:00 11/27/24 11:08 0.5 MG Levalbuterol HCl 0.625 mg Q6HWA NEB 11/27/24 12:00 11/27/24 11:08 0.625 MG laboratory and microbiology Laboratory Tests 11/26/24 03:50 Test 11/26/24 03:50 Range/Units Serum Glucose 147 H 74-106 mg/dL Assessment/Plan Impression Acute hypoxemic respiratory failure Acute COPD exacerbation Pulmonary hypertension Substance abuse Patient seen and examined in ICU Events S/p extubation Low oxygen requirements On 1 liter nasal cannula No distress Labs and imaging reviewed ABG reviewed Management Supplemental oxygen Titrate to maintain sats 90% or above Incentive spirometry Aspiration precautions Continue antibiotics F/u cultures Bronchodilators Monitor renal function Monitor electrolytes Supplement as needed Okay to downgrade from pulmonary standpoint DVT prophylaxis Critical care time 35 minutes Dietary Evaluation Review Recommendations by RD: Protein Supplementation Comments: 1) Initiate Paulie @ 1 pk bid. Flush 30 mL free H2O AC/PC 2) Initiate MVI @ 1 tb qd 3) Initiate vitamin C @ 500 mg bid and zinc sulfate @ 220 mg qd for 7-10 days 4) If patient remains NPO > 7 days, consider EN/TPN to meet at least 75% of estimated daily needs 5) If gut is preferred, agree with previous recommendation of Jevity 1.2 @ 60 mL/hr goal rate as tolerated. Initiate @ 20 mL/hr and increase by 10 mL Q4H as tolerated until goal rate is reached. Flush with 150 mL free H2O Q6H. TF regimen provides 1918 kcal, 85g Pro (including Paulie @ 1 pk bid), and 1762 mL free H2O (including flushes) per 24 hrs. TF rate will meet 100% estimated energy needs and ~77% estimated protein needs 6) Collect HbA1C 7) Advance to 60g CCHO diet when medically feasible, pending speech therapy approval 8) Follow-up with pulmonology Expected Outcomes/Goals: 1) patient to receive nutrition support within 7 days of NPO status 2) labs and wound to improve 3) diet to advance 4) f/u in 2-3 days Plan discussed with: Patient ADRIANA LOPEZ MD Nov 27, 2024 13:47
[2024-11-28] VITALS (15 sets, daily range): BP systolic 117–141; BP diastolic 72–86; PULSE 80–117; RESP 14–20; TEMP 98–99.1; O2SAT 89–100
[2024-11-28 05:54] LABS: Basophils # (auto) 0 10 ^3/uL (0-0.2); Basophils % (auto) 0.1 % (0.0-2.0); Eosinophils # (auto) 0.2 10 ^3/uL (0-0.8); Eosinophils % (auto) 1.5 % (0.0-7.0); Hematocrit 53.2 % (36.0-46.0); Hemoglobin 17.2 g/dL (12.2-16.2); Lymphocytes # (auto) 1.7 10 ^3/uL (0.4-5.4); Lymphocytes % (auto) 12.7 % (10.0-50.0); Mean Corpuscular Hemoglobin 28.9 pg (28.0-32.0); Mean Corpuscular Hgb Conc. 32.2 g/dL (32.0-36.0); Mean Corpuscular Volume 89.7 fL (80.0-100.0); Monocytes # (auto) 1.7 10 ^3/uL (0-1.3); Monocytes % (auto) 12.9 % (0.0-12.0); Neutrophils # (auto) 9.8 10 ^3/uL (1.6-8.6); Neutrophils % (auto) 72.8 % (37.0-80.0); Nucleated Red Blood Cells % 0.1 %; Platelet Count (auto) 310 10^3/uL (140-450); Red Blood Cells 5.94 10^6/uL (4.0-5.20); Red Cell Distribution Width 13.7 % (11.8-14.3); White Blood Cell 13.4 10^3/uL (4.4-10.8)
[2024-11-28 06:04] LABS: Sodium 143 mmol/L (136-145)
[2024-11-28 06:10] LABS: BUN/Creatinine Ratio 26.6 (10.0-20.0); Blood Urea Nitrogen 17 mg/dL (9-23)
[2024-11-28 06:11] LABS: Magnesium 2.2 mg/dL (1.6-2.6)
[2024-11-28 06:18] LABS: Anion Gap 7.99999 (5-15); Calcium 10.5 mg/dL (8.7-10.4); Chloride 95 mmol/L (98-107); Glucose 120 mg/dL (74-106); Potassium 2.9 mmol/L (3.5-5.1)
[2024-11-28 06:20] LABS: Carbon Dioxide > 40 mmol/L (20-31)
--- NOTE | 2024-11-28 12:46 | DVH ---
EXAMINATION: AP portable chest radiograph CLINICAL HISTORY: pna COMPARISON: XY CHEST XRAY 1 VIEW on DOS: 11/26/24 FINDINGS: Left upper extremity PICC terminates in the SVC. No dominant consolidations. Slightly decreased bilat eral interstitial opacities. The costophrenic angles are clear. No sizable pleural effusions or pneum othorax identified. The cardiomediastinal silhouette appears within normal limits given technique. IMPRESSION: 1. Slightly decreased interstitial opacities which may suggest decreased edema or improving infection
--- NOTE | 2024-11-28 12:55 | DVHPN2 ---
Subjective Patient denies any symptoms at this time. Reviewed: Care Plan, H&P, Labs, Medications Changes from previous H/P or p: No Changes General: Per HPI Eyes: No Pain, No Vision change, No Conjunctivae inflammation, No Eyelid inflammation, No Other, No Redness ENT: No Ear pain, No Ear discharge, No Nose pain, No Nose discharge, No Nose congestion, No Mouth pain, No Mouth swelling, No Throat pain, No Throat swelling, No Other Cardiovascular: No Chest Pain, No Palpitations, No Orthopnea, No Paroxysmal Noc. Dyspnea, No Edema, No Lt Headedness, No Other Respiratory: No Cough, No Dry, No Shortness of breath, No SOB with excertion, No Wheezing, No Hemoptysis, No Pleuritic Pain, No Sputum, No Other Gastrointestinal: No Nausea, No Vomiting, No Abdominal Pain, No Diarrhea, No Constipation, No Melena, No Hematochezia, No Other Genitourinary: No Dysuria, No Frequency, No Incontinence, No Hematuria, No Retention, No Other Musculoskeletal: No other, No neck pain, No shoulder pain, No arm pain, No back pain, No hand pain, No leg pain, No foot pain Skin: No Rash, No Lesions, No Jaundice, No Bruising, No Other Objective Vitals Vital Signs Date Time Temp Pulse Resp B/P (MAP) Pulse Ox O2 Delivery O2 Flow Rate FiO2 11/28/24 08:59 98.0 80 16 117/75 (89) 97 98.0 11/28/24 06:48 Nasal Cannula* 2 28 Intake/Output Intake and Output 11/28/24 07:00 Intake Total 350 ml Balance 350 ml Intake Oral 350 ml # Voids 2 General Appearance: Alert, Oriented X3, Cooperative, mild distress, Other (sedated and intubated) HEENT: Atraumatic, PERRLA Lungs: Clear to auscultation, Normal air movement, Other (Nasal cannula at 2 L/min) Cardiovascular: Normal S1, Normal S2 Abdomen: Normal bowel sounds, Soft Musculoskeletal: Normal sensory function, Normal motor function Neuro: Normal tone, Sensation intact, Cranial nerves 3-12 NL Skin: Dry, Intact Psych/Mental Status: Other (Anxious) Medications Current Medications Medications Dose Ordered Sig/Teena Route Start Time Stop Time Status Last Admin Dose Admin Ondansetron HCl 4 mg Q4HP PRN IV 11/17/24 18:15 Docusate Sodium 100 mg BIDPRN PRN PO 11/17/24 18:15 Morphine Sulfate 2 mg Q4HPRN PRN IV 11/17/24 18:15 Enoxaparin Sodium 40 mg DAILY@1800 SC 11/17/24 18:15 11/27/24 19:02 40 MG Nitroglycerin 0.4 mg Q5MINP PRN SL 11/17/24 18:15 Lorazepam 1 mg Q2HPRN PRN IV 11/17/24 18:15 11/24/24 16:23 1 MG Nicotine 1 patch DAILY@1800 TD 11/18/24 18:00 11/27/24 19:00 1 PATCH Pantoprazole Sodium 40 mg DAILY IV 11/19/24 10:00 11/28/24 10:03 40 MG Ceftriaxone Sodium 50 ml @ 100 mls/hr DAILY@09 IV 11/19/24 09:58 11/28/24 10:03 100 MLS/HR Sodium Chloride 10 ml QSHIFT@10,22 IV 11/20/24 10:00 11/28/24 10:06 10 ML Diagnostic Test (Pha) 1 strip Q6HR 11/24/24 00:00 11/28/24 12:00 1 STRIP Insulin Human Regular FOLLOW SLIDING SCALE Q6HR SC 11/24/24 00:00 11/27/24 23:59 8 UNITS Dextrose 50 ml UD IV 11/24/24 00:00 Labetalol HCl 10 mg Q2HPRN PRN IV 11/24/24 09:45 11/27/24 16:14 10 MG Amlodipine Besylate 10 mg DAILY PO 11/26/24 10:00 11/27/24 09:57 10 MG Prednisone 40 mg DAILY PO 11/27/24 10:00 12/02/24 09:59 11/28/24 10:04 40 MG Ipratropium [place] 0.5 mg Q6HWA NEB 11/27/24 12:00 11/28/24 11:43 0.5 MG Levalbuterol HCl 0.625 mg Q6HWA NEB 11/27/24 12:00 11/28/24 11:43 0.625 MG Laboratory Results Laboratory Tests 11/28/24 04:52 Chemistry Test 11/28/24 04:52 Calcium Level 10.5 mg/dL (8.7-10.4) H Magnesium Level 2.2 mg/dL (1.6-2.6) Urinalysis Test 11/18/24 10:37 Urine Color Yellow (Yellow) Urine Clarity Clear (Clear) Urine pH 6.0 (5.0-9.0) Urine Specific [place] 1.024 (1.001-1.035) Urine Protein 2+ (Negative) H Urine Ketones Negative (Negative) Urine Blood Negative /uL (Negative) Urine Nitrite Negative (Negative) Urine Bilirubin Negative (Negative) Urine Urobilinogen Normal mg/dL (Negative) Urine Leukocyte Esterase Negative /uL (Negative) Urine RBC 1 /hpf (0 - 4) Urine Microscopic WBC 1 /HPF (0-5) Urine Squamous Epithelial Cells Few /hpf (<5) Urine Bacteria None seen /hpf (None Seen) Urine Hyaline Casts Few /lpf (0 - 2) Urine Mucus Few (None Seen) Urine Glucose 4+ mg/dL (Normal) H Microbiology Microbiology Date/Time Source Procedure Growth Status 11/27/24 04:10 Voided Urine Urine Culture - Preliminary Resulted 11/26/24 08:45 Blood Blood Culture - Preliminary NO GROWTH AFTER 48 HOURS OF INCUBATION. Resulted 11/19/24 12:00 Nose MRSA Screen - Final Complete Labs and/or images reviewed: Labs reviewed by me, Image(s) reviewed by me Assessment/Plan Assessment/Plan Impression: -acute alcohol and substance abuse withdrawal -COPD with exacerbation -acute hypoxic respiratory failure -nicotine dependence -hyperkalemia -hypertensive crisis Plan: Events: Patient reported hypoxia and dyspnea with ambulation today. Continues to be on 2 L via nasal cannula. Potassium 2.9, repleted. Stop diuretics -continue Librium, MVI -continue nasal cannula to keep O2 greater than 91 % -lorazepam p.r.n. withdrawal symptoms -wean IV steroids -continue bronchodilators -PUD prophylaxis -repeat labs, chest x-ray in a.m. Reassess for discharge in a.m. Total time spent with patient discussing and formulating plan of care: 35 minutes. This medical document was created using an electronic medical record system with [employer] system. Although this document has been carefully reviewed, there may still be some phonetic and typographical errors. These areas are purely typographical due to imperfections of the software programs, and do not reflect any compromise in the patient's medical care. Plan discussed with: Patient, Other (RN) Date of Service: Nov 28, 2024 Billing Provider: JEFF QUINN NP Common Visit Codes: [id number] INP/OBS CARE(HIGH) JEFF QUINN NP Nov 28, 2024 12:55
[2024-11-28] MEDS: POTASSIUM EFFERVESENT TAB 25 MEQ PO ONE (13:41)
--- NOTE | 2024-11-28 16:52 | DVHPN2 ---
Progress Note - Dictate Date Seen: Nov 28, 2024 Medical Necessity Reason Pt with a Central, PICC or Fol: No vital signs Vital Sign Date Time Temp Pulse Resp B/P (MAP) Pulse Ox O2 Delivery O2 Flow Rate FiO2 11/28/24 13:00 99.1 113 18 126/86 (99) 98 99.1 11/28/24 11:43 Nasal Cannula 2.0 11/28/24 11:43 28 Total Intake and Output 11/27/24 11/27/24 11/28/24 15:00 23:00 07:00 Intake Total 0 ml 350 ml Balance 0 ml 350 ml medications Current Medications Medications Dose Ordered Sig/Teena Route Start Time Stop Time Status Last Admin Dose Admin Ondansetron HCl 4 mg Q4HP PRN IV 11/17/24 18:15 Docusate Sodium 100 mg BIDPRN PRN PO 11/17/24 18:15 Morphine Sulfate 2 mg Q4HPRN PRN IV 11/17/24 18:15 Enoxaparin Sodium 40 mg DAILY@1800 SC 11/17/24 18:15 11/27/24 19:02 40 MG Nitroglycerin 0.4 mg Q5MINP PRN SL 11/17/24 18:15 Lorazepam 1 mg Q2HPRN PRN IV 11/17/24 18:15 11/24/24 16:23 1 MG Nicotine 1 patch DAILY@1800 TD 11/18/24 18:00 11/27/24 19:00 1 PATCH Pantoprazole Sodium 40 mg DAILY IV 11/19/24 10:00 11/28/24 10:03 40 MG Ceftriaxone Sodium 50 ml @ 100 mls/hr DAILY@09 IV 11/19/24 09:58 11/28/24 10:03 100 MLS/HR Sodium Chloride 10 ml QSHIFT@10,22 IV 11/20/24 10:00 11/28/24 10:06 10 ML Diagnostic Test (Pha) 1 strip Q6HR 11/24/24 00:00 11/28/24 12:00 1 STRIP Insulin Human Regular FOLLOW SLIDING SCALE Q6HR SC 11/24/24 00:00 11/28/24 13:05 4 UNITS Dextrose 50 ml UD IV 11/24/24 00:00 Labetalol HCl 10 mg Q2HPRN PRN IV 11/24/24 09:45 11/27/24 16:14 10 MG Amlodipine Besylate 10 mg DAILY PO 11/26/24 10:00 11/27/24 09:57 10 MG Prednisone 40 mg DAILY PO 11/27/24 10:00 12/02/24 09:59 11/28/24 10:04 40 MG Ipratropium [place] 0.5 mg Q6HWA [facility] 11/27/24 12:00 11/28/24 11:43 0.5 MG Levalbuterol HCl 0.625 mg Q6HWA [facility] 11/27/24 12:00 11/28/24 11:43 0.625 MG laboratory and microbiology Laboratory Tests 11/28/24 04:52 Test 11/28/24 04:52 Range/Units Serum Glucose 120 H 74-106 mg/dL Assessment/Plan Impression Acute hypoxemic respiratory failure Acute COPD exacerbation Pulmonary hypertension Substance abuse Patient seen and examined Events S/p extubation Low oxygen requirements On 1 liter nasal cannula Continues to improve Labs and imaging reviewed ABG reviewed Management Supplemental oxygen Titrate to maintain sats 90% or above Incentive spirometry Aspiration precautions Continue antibiotics F/u cultures Bronchodilators Monitor renal function Monitor electrolytes Supplement as needed DVT prophylaxis Dietary Evaluation Review Recommendations by RD: Protein Supplementation Comments: 1) Initiate Paulie @ 1 pk bid. Flush 30 mL free H2O AC/PC 2) Initiate MVI @ 1 tb qd 3) Initiate vitamin C @ 500 mg bid and zinc sulfate @ 220 mg qd for 7-10 days 4) If patient remains NPO > 7 days, consider EN/TPN to meet at least 75% of estimated daily needs 5) If gut is preferred, agree with previous recommendation of Jevity 1.2 @ 60 mL/hr goal rate as tolerated. Initiate @ 20 mL/hr and increase by 10 mL Q4H as tolerated until goal rate is reached. Flush with 150 mL free H2O Q6H. TF regimen provides 1918 kcal, 85g Pro (including Paulie @ 1 pk bid), and 1762 mL free H2O (including flushes) per 24 hrs. TF rate will meet 100% estimated energy needs and ~77% estimated protein needs 6) Collect HbA1C 7) Advance to 60g CCHO diet when medically feasible, pending speech therapy approval 8) Follow-up with pulmonology Expected Outcomes/Goals: 1) patient to receive nutrition support within 7 days of NPO status 2) labs and wound to improve 3) diet to advance 4) f/u in 2-3 days Plan discussed with: Patient ADRIANA LOPEZ MD Nov 28, 2024 16:52
[2024-11-29] VITALS (14 sets, daily range): BP systolic 115–127; BP diastolic 65–87; PULSE 71–120; RESP 16–20; TEMP 36.7; O2SAT 90–100
[2024-11-29 10:19] LABS: Basophils # (auto) 0.1 10 ^3/uL (0-0.2); Basophils % (auto) 0.3 % (0.0-2.0); Eosinophils # (auto) 0.3 10 ^3/uL (0-0.8); Eosinophils % (auto) 1.8 % (0.0-7.0); Hematocrit 48.6 % (36.0-46.0); Hemoglobin 15.7 g/dL (12.2-16.2); Lymphocytes % (auto) 13.7 % (10.0-50.0); Mean Corpuscular Hemoglobin 28.7 pg (28.0-32.0); Mean Corpuscular Hgb Conc. 32.2 g/dL (32.0-36.0); Mean Corpuscular Volume 89.1 fL (80.0-100.0); Monocytes # (auto) 1.3 10 ^3/uL (0-1.3); Monocytes % (auto) 8.6 % (0.0-12.0); Neutrophils # (auto) 11.2 10 ^3/uL (1.6-8.6); Neutrophils % (auto) 75.6 % (37.0-80.0); Platelet Count (auto) 309 10^3/uL (140-450); Red Blood Cells 5.46 10^6/uL (4.0-5.20); Red Cell Distribution Width 13.5 % (11.8-14.3); White Blood Cell 14.8 10^3/uL (4.4-10.8)
[2024-11-29 10:29] LABS: Potassium 3.7 mmol/L (3.5-5.1); Sodium 139 mmol/L (136-145)
[2024-11-29 10:35] LABS: BUN/Creatinine Ratio 16.1 (10.0-20.0); Blood Urea Nitrogen 10 mg/dL (9-23)
[2024-11-29 11:05] LABS: Chloride 93 mmol/L (98-107)
[2024-11-29 11:06] LABS: Anion Gap 5.99999 (5-15); Calcium 10.7 mg/dL (8.7-10.4); Glucose 169 mg/dL (74-106)
[2024-11-29 11:07] LABS: Carbon Dioxide > 40 mmol/L (20-31)
[2024-11-29] MEDS ORDERED: BECL40AE11 IN (13:31)
[2024-11-29] MEDS ORDERED: CEFD300C2 PO (13:31)
[2024-11-29] MEDS ORDERED: AML5T PO (13:31)
[2024-11-29] MEDS ORDERED: PRED20TA2 PO (13:31)
[2024-11-29] MEDS ORDERED: ALBUAER3 IN (13:31)
--- NOTE | 2024-11-29 13:47 | DVHDS2 ---
Discharge Summary Date of Admission Nov 17, 2024 at 18:06 Date of Discharge: Nov 29, 2024 Admitting Diagnosis Acute hypoxic respiratory failure Labs/Diagnostic Data: Laboratory Results Test 11/29/24 12:02 11/29/24 09:50 11/28/24 04:52 11/26/24 06:21 POC Glucose 81 mg/dl (70-106) White Blood Count 14.8 10^3/uL (4.4-10.8) Red Blood Count 5.46 10^6/uL (4.0-5.20) Hemoglobin 15.7 g/dL (12.2-16.2) Hematocrit 48.6 % (36.0-46.0) Mean Corpuscular Volume 89.1 fL (80.0-100.0) Mean Corpuscular Hemoglobin 28.7 pg (28.0-32.0) Mean Corpuscular Hemoglobin Concent 32.2 g/dL (32.0-36.0) Red Cell Distribution Width 13.5 % (11.8-14.3) Platelet Count 309 10^3/uL (140-450) Mean Platelet Volume 6.9 fL (6.9-10.8) Neutrophils (%) (Auto) 75.6 % (37.0-80.0) Lymphocytes (%) (Auto) 13.7 % (10.0-50.0) Monocytes (%) (Auto) 8.6 % (0.0-12.0) Eosinophils (%) (Auto) 1.8 % (0.0-7.0) Basophils (%) (Auto) 0.3 % (0.0-2.0) Neutrophils # (Auto) 11.2 10 ^3/uL (1.6-8.6) Lymphocytes # (Auto) 2.0 10 ^3/uL (0.4-5.4) Monocytes # (Auto) 1.3 10 ^3/uL (0-1.3) Eosinophils # (Auto) 0.3 10 ^3/uL (0-0.8) Basophils # (Auto) 0.1 10 ^3/uL (0-0.2) Nucleated Red Blood Cells 0.0 % Sodium Level 139 mmol/L (136-145) Potassium Level 3.7 mmol/L (3.5-5.1) Chloride Level 93 mmol/L (98-107) Carbon Dioxide Level > 40 mmol/L (20-31) Anion Gap 5.25235 (5-15) Blood Urea Nitrogen 10 mg/dL (9-23) Creatinine 0.62 mg/dL (0.550-1.02) Glomerular Filtration Rate Calc 101 mL/min (>90) BUN/Creatinine Ratio 16.1 (10.0-20.0) Serum Glucose 169 mg/dL (74-106) Calcium Level 10.7 mg/dL (8.7-10.4) Magnesium Level 2.2 mg/dL (1.6-2.6) Blood Gas Specimen Type Arterial Blood Gas Sample Site Left radial Blood Gas Patient Temperature 37.0 Arterial Blood Date Drawn [id number] Arterial Blood pH 7.403 (7.350-7.450) Arterial Blood Partial Pressure CO2 59.1 mmHg (32.0-45.0) Arterial Blood Partial Pressure O2 67.3 mmHg (83.0-108.0) Arterial Blood HCO3 36.0 mmol/L (21.0-28.0) Arterial Blood Oxygen Saturation 93.1 % (94.0-98.0) Arterial Blood Base Excess 8.8 mmol/L (-2.0-3.0) Arterial Blood Oxyhemoglobin 92.0 % (94.0-98.0) Arterial Blood Carboxyhemoglobin 1.0 % (0.5-1.5) Arterial Blood Methemoglobin 0.2 % (0.0-1.5) Philip Test Yes Blood Gas Total Hemoglobin 16.00 g/dL (12.0-16.0) Blood Gas Liter Flow 45.00 Blood Gas Modality High flow FiO2 % 35.0 Test 11/26/24 03:50 11/25/24 09:39 11/25/24 03:05 11/24/24 14:56 Total Bilirubin 0.9 mg/dL (0.2-1.0) Aspartate Amino Transferase (AST) 26 U/L (0-34) Alanine Aminotransferase (ALT) 51 U/L (7-40) Alkaline Phosphatase 54 U/L (46-116) Total Protein 5.1 g/dL (5.7-8.2) Albumin 3.4 g/dL (3.2-4.8) Blood Gas Set Respiration Rate 14.0 Blood Gas EPAP 5 Blood Gas IPAP 18 Estimated GFR () 173 mL/min Estimated GFR (Non- 143 mL/min Phosphorus Level 2.4 mg/dL (2.4-5.1) Blood Gas Notified Time [id number] Test 11/24/24 12:08 11/24/24 09:03 11/24/24 06:57 11/19/24 17:22 Blood Gas Critical Value Read Back yes Blood Gas Notified Whom md kenroy Blood Gas Notified By donald cupola hoist operator Blood Gas Pressure Support 7 Blood Gas PEEP or CPAP 5.0 Blood Gas Tidal Volume 500.0 Prothrombin Time 10.1 sec (9.3-11.8) Prothrombin Time INR 0.95 (0.9-1.15) Activated Partial Thromboplast Time 22.6 SEC (24.5-34.5) Test 11/18/24 10:37 11/17/24 18:33 11/17/24 16:17 11/17/24 15:22 Urine Color Yellow (Yellow) Urine Clarity Clear (Clear) Urine pH 6.0 (5.0-9.0) Urine Specific [place] 1.024 (1.001-1.035) Urine Protein 2+ (Negative) Urine Ketones Negative (Negative) Urine Blood Negative /uL (Negative) Urine Nitrite Negative (Negative) Urine Bilirubin Negative (Negative) Urine Urobilinogen Normal mg/dL (Negative) Urine Leukocyte Esterase Negative /uL (Negative) Urine RBC 1 /hpf (0 - 4) Urine Microscopic WBC 1 /HPF (0-5) Urine Squamous Epithelial Cells Few /hpf (<5) Urine Bacteria None seen /hpf (None Seen) Urine Hyaline Casts Few /lpf (0 - 2) Urine Mucus Few (None Seen) Urine Glucose 4+ mg/dL (Normal) Urine Opiates Screen Neg (NEGATIVE) Urine Fentanyl Screen Neg (NEGATIVE) Urine Barbiturates Screen Neg (NEGATIVE) Urine Phencyclidine Screen Neg (NEGATIVE) Urine Amphetamines Screen Pos (NEGATIVE) Urine Benzodiazepines Screen Neg (NEGATIVE) Urine Cocaine Screen Neg (NEGATIVE) Urine Cannabinoids Screen Neg (NEGATIVE) Plasma/Serum Blood Alcohol < 3.0 mg/dL (<10) Influenza Type A Antigen Negative (Negative) Influenza Type B Antigen Negative (Negative) SARS-CoV-2 Antigen (Rapid) Negative (NEGATIVE) D-Dimer, Quantitative 0.31 mg/L FEU (0.0-0.49) Troponin I High Sensitivity 22 ng/L (</=34) B-Type Natriuretic Peptide 255.88 pg/mL (0-100) Other Laboratory Tests 11/29/24 09:50 Brief Hx & Hospital Course: History of Present Illness 63-year-old female with a history of tonsillectomy and migraines presents to the ED with progressive shortness of breath over the past two months, now worsening significantly. Over the past few days, she reports increased weakness and a worsening nighttime cough. She was brought in by paramedics due to shortness of breath and was found to be hypoxic to 80% on room air. Placed on 4L nasal cannula with improvement. She denies chest pain or hemoptysis. Reports smoking two packs per day since age 19 and currently drinks 34 beers daily, which she began after her two years ago. She is attempting to reduce her smoking. ED Data Reviewed: O2 Sat: 80% on RA ? improved on 4L NC Tachycardia: HR 128 BP: Elevated CBC: WBC 13.5 CMP/BMP: Unremarkable Chest X- ray: Reactive airway disease, no signs of CHF Troponin: Negative COVID/Flu: Negative (if done) D-dimer: negative Smoking & Alcohol History: 2ppd, EtOH 34 beers daily. will admit and consult pt pulmonary Dr. Chow. Course of hospitalization: Patient's course of hospitalization was somewhat challenging given her acute withdrawal from her substance abuse including methamphetamines and alcohol. Patient ended up having acute respiratory failure, hypertensive crisis, probable flash pulmonary edema requiring mechanical ventilation. Patient was subsequently extubated. Patient's withdrawal symptoms have improved dramatically. Patient has been ambulating, tolerating oral intake, but noted to have persistence hypoxia for which she will be discharged home on oxygen at 2 L/min. Patient will also be continued on antihypertensives, a tapering steroid dose, as well as continuation of antibiotics for additional seven days. Patient will follow up with the discharge Clinic in one week. She is agreeable with discharge plan. All questions answered. Physical examination General: Alert and Oriented x3. No acute distress. Well-nourished. Eyes: EOMI. Anicteric. HENT: Moist mucous membranes. Lungs: Clear to auscultation bilaterally. No accessory muscle use. Cardiovascular: Regular rate and rhythm. No murmur. No JVD. Abdomen: Soft, non-tender and non-distended. No palpable masses. Extremities: No edema. Non-tender. Skin: No rashes or lesions. Warm. Neurologic: No focal neurological deficits. CN II-XII grossly intact, but not individually tested. Psychiatric: Cooperative. Appropriate mood and affect. Total time spent with patient discussing and formulating plan of care: 35 minutes. This medical document was created using an electronic medical record system with [employer] dictation system. Although this document has been carefully reviewed, there may still be some phonetic and typographical errors. These areas are purely typographical due to imperfections of the software programs, and do not reflect any compromise in the patient's medical care. Consults/Reason for consult Pulmonology: Acute respiratory failure Condition at Discharge: Fair Final Diagnosis/Problems List Acute hypoxic and hypercarbic respiratory failure Secondary diagnosis: -acute alcohol and substance abuse withdrawal -COPD with exacerbation -acute hypoxic respiratory failure -nicotine dependence -hyperkalemia -hypertensive crisis Discharge Disposition: Home Discharge Instruct/Medications Diet: Cardiac 2g Na,low cholest Activity: No Restrictions, As Tolerated Follow Up/Referral: Discharge Clinic in one week Medications: Amlodipine 10 mg p.o. daily Prednisone 20 mg p.o. daily x7 days QVAR one puff b.i.d. Ventolin one puff q.4 hours as needed for acute dyspnea Cefdinir 300 mg p.o. b.i.d. for seven days 36 Discharge Statement: "Patient was advised to return to the ER or call 911 if any headaches, dizziness, shortness of breath, chest pain, abdominal pain, bleeding, fevers, or worsening of medical condition. Patient was counseled about treatment plan, medications, possible side effects, patientverbalized understanding. All questions were answered to the best of my ability. This discharge took greater then 30 minutes in planning, reviewing documentation, counseling the patient, and discussing with other team members." ASSESSMENT ASSESSMENT Assessment Acute hypoxic and hypercarbic respiratory failure Date of Service: Nov 29, 2024 Billing Provider: JEFF QUINN NP Common Visit Codes: [id number] INP/OBS CARE(HIGH) JEFF QUINN NP Nov 29, 2024 13:47
--- NOTE | 2024-11-29 13:50 | DVHPN2 ---
Subjective Patient denies any symptoms at this time. Reviewed: Care Plan, H&P, Labs, Medications Changes from previous H/P or p: No Changes General: Per HPI Eyes: No Pain, No Vision change, No Conjunctivae inflammation, No Eyelid inflammation, No Other, No Redness ENT: No Ear pain, No Ear discharge, No Nose pain, No Nose discharge, No Nose congestion, No Mouth pain, No Mouth swelling, No Throat pain, No Throat swelling, No Other Cardiovascular: No Chest Pain, No Palpitations, No Orthopnea, No Paroxysmal Noc. Dyspnea, No Edema, No Lt Headedness, No Other Respiratory: No Cough, No Dry, No Shortness of breath, No SOB with excertion, No Wheezing, No Hemoptysis, No Pleuritic Pain, No Sputum, No Other Gastrointestinal: No Nausea, No Vomiting, No Abdominal Pain, No Diarrhea, No Constipation, No Melena, No Hematochezia, No Other Genitourinary: No Dysuria, No Frequency, No Incontinence, No Hematuria, No Retention, No Other Musculoskeletal: No other, No neck pain, No shoulder pain, No arm pain, No back pain, No hand pain, No leg pain, No foot pain Skin: No Rash, No Lesions, No Jaundice, No Bruising, No Other Objective Vitals Vital Signs Date Time Temp Pulse Resp B/P (MAP) Pulse Ox O2 Delivery O2 Flow Rate FiO2 11/29/24 11:40 110 16 91 11/29/24 11:32 Room Air 0.0 11/29/24 11:32 21 11/29/24 08:30 97.8 127/76 (93) 97.8 Intake/Output Intake and Output 11/29/24 07:00 Intake Total 950 ml Balance 950 ml Intake Oral 900 ml IV Total 50 ml # Voids 6 General Appearance: Alert, Oriented X3, Cooperative, mild distress, Other (sedated and intubated) HEENT: Atraumatic, PERRLA Lungs: Clear to auscultation, Normal air movement, Other (Nasal cannula at 2 L/min) Cardiovascular: Normal S1, Normal S2 Abdomen: Normal bowel sounds, Soft Musculoskeletal: Normal sensory function, Normal motor function Neuro: Normal tone, Sensation intact, Cranial nerves 3-12 NL Skin: Dry, Intact Psych/Mental Status: Other (Anxious) Medications Current Medications Medications Dose Ordered Sig/Teena Route Start Time Stop Time Status Last Admin Dose Admin Ondansetron HCl 4 mg Q4HP PRN IV 11/17/24 18:15 Docusate Sodium 100 mg BIDPRN PRN PO 11/17/24 18:15 Morphine Sulfate 2 mg Q4HPRN PRN IV 11/17/24 18:15 Enoxaparin Sodium 40 mg DAILY@1800 SC 11/17/24 18:15 11/28/24 18:18 40 MG Nitroglycerin 0.4 mg Q5MINP PRN SL 11/17/24 18:15 Lorazepam 1 mg Q2HPRN PRN IV 11/17/24 18:15 11/24/24 16:23 1 MG Nicotine 1 patch DAILY@1800 TD 11/18/24 18:00 11/28/24 18:19 1 PATCH Pantoprazole Sodium 40 mg DAILY IV 11/19/24 10:00 11/29/24 09:57 40 MG Ceftriaxone Sodium 50 ml @ 100 mls/hr DAILY@09 IV 11/19/24 09:58 11/29/24 09:56 100 MLS/HR Sodium Chloride 10 ml QSHIFT@10,22 IV 11/20/24 10:00 11/29/24 09:59 10 ML Diagnostic Test (Pha) 1 strip Q6HR 11/24/24 00:00 11/29/24 12:11 1 STRIP Insulin Human Regular FOLLOW SLIDING SCALE Q6HR SC 11/24/24 00:00 11/28/24 13:05 4 UNITS Dextrose 50 ml UD IV 11/24/24 00:00 Labetalol HCl 10 mg Q2HPRN PRN IV 11/24/24 09:45 11/27/24 16:14 10 MG Amlodipine Besylate 10 mg DAILY PO 11/26/24 10:00 11/27/24 09:57 10 MG Prednisone 40 mg DAILY PO 11/27/24 10:00 12/02/24 09:59 11/29/24 09:57 40 MG Ipratropium [place] 0.5 mg Q6HWA NEB 11/27/24 12:00 11/29/24 11:32 0.5 MG Levalbuterol HCl 0.625 mg Q6HWA NEB 11/27/24 12:00 11/29/24 11:32 0.625 MG Laboratory Results Laboratory Tests 11/29/24 09:50 Chemistry Test 11/29/24 09:50 Calcium Level 10.7 mg/dL (8.7-10.4) H Urinalysis Test 11/18/24 10:37 Urine Color Yellow (Yellow) Urine Clarity Clear (Clear) Urine pH 6.0 (5.0-9.0) Urine Specific [place] 1.024 (1.001-1.035) Urine Protein 2+ (Negative) H Urine Ketones Negative (Negative) Urine Blood Negative /uL (Negative) Urine Nitrite Negative (Negative) Urine Bilirubin Negative (Negative) Urine Urobilinogen Normal mg/dL (Negative) Urine Leukocyte Esterase Negative /uL (Negative) Urine RBC 1 /hpf (0 - 4) Urine Microscopic WBC 1 /HPF (0-5) Urine Squamous Epithelial Cells Few /hpf (<5) Urine Bacteria None seen /hpf (None Seen) Urine Hyaline Casts Few /lpf (0 - 2) Urine Mucus Few (None Seen) Urine Glucose 4+ mg/dL (Normal) H Microbiology Microbiology Date/Time Source Procedure Growth Status 11/27/24 04:10 Voided Urine Urine Culture - Final Complete 11/26/24 08:45 Blood Blood Culture - Preliminary NO GROWTH AFTER 72 HOURS OF INCUBATION. Resulted 11/19/24 12:00 Nose MRSA Screen - Final Complete Assessment/Plan Assessment/Plan Impression: -acute alcohol and substance abuse withdrawal -COPD with exacerbation -acute hypoxic respiratory failure -nicotine dependence -hyperkalemia -hypertensive crisis Plan: Events: Patient reported hypoxia and dyspnea with ambulation today. Continues to be on 2 L via nasal cannula. Potassium 2.9, repleted. Stop diuretics -continue Librium, MVI -continue nasal cannula to keep O2 greater than 91 % -lorazepam p.r.n. withdrawal symptoms -wean IV steroids -continue bronchodilators -PUD prophylaxis -repeat labs, chest x-ray in a.m. Reassess for discharge in a.m. Total time spent with patient discussing and formulating plan of care: 35 minutes. This medical document was created using an electronic medical record system with [employer] system. Although this document has been carefully reviewed, there may still be some phonetic and typographical errors. These areas are purely typographical due to imperfections of the software programs, and do not reflect any compromise in the patient's medical care. Plan discussed with: Patient, Other My Orders Orders - JEFF QUINN NP Procedure Category Date Status Time Abg W/ Co-Ox RT 11/29/24 Logged 13:13 Ss Eval For Home CONS 11/29/24 Transmitted Oxygen Discharge DISCHARGE 11/29/24 Verified 13:34 Date of Service: Nov 29, 2024 Billing Provider: JEFF QUINN NP Common Visit Codes: [id number] DISCH DAY >30min JEFF QUINN NP Nov 29, 2024 13:50
[2024-11-29 15:05] LABS: Base Excess 9.6 mmol/L (-2.0-3.0)
--- NOTE | 2024-11-29 18:19 | DVHPN2 ---
Progress Note - Dictate Date Seen: Nov 29, 2024 Medical Necessity Reason Pt with a Central, PICC or Fol: No vital signs Vital Sign Date Time Temp Pulse Resp B/P (MAP) Pulse Ox O2 Delivery O2 Flow Rate FiO2 11/29/24 17:31 98.0 115 20 116/65 (82) 90 98.0 11/29/24 11:32 Room Air 0.0 11/29/24 11:32 21 Total Intake and Output 11/28/24 11/28/24 11/29/24 15:00 23:00 07:00 Intake Total 50 ml 800 ml 100 ml Balance 50 ml 800 ml 100 ml medications Current Medications Medications Dose Ordered Sig/Teena Route Start Time Stop Time Status Last Admin Dose Admin Ondansetron HCl 4 mg Q4HP PRN IV 11/17/24 18:15 Docusate Sodium 100 mg BIDPRN PRN PO 11/17/24 18:15 Morphine Sulfate 2 mg Q4HPRN PRN IV 11/17/24 18:15 Enoxaparin Sodium 40 mg DAILY@1800 SC 11/17/24 18:15 11/28/24 18:18 40 MG Nitroglycerin 0.4 mg Q5MINP PRN SL 11/17/24 18:15 Lorazepam 1 mg Q2HPRN PRN IV 11/17/24 18:15 11/24/24 16:23 1 MG Nicotine 1 patch DAILY@1800 TD 11/18/24 18:00 11/28/24 18:19 1 PATCH Pantoprazole Sodium 40 mg DAILY IV 11/19/24 10:00 11/29/24 09:57 40 MG Ceftriaxone Sodium 50 ml @ 100 mls/hr DAILY@09 IV 11/19/24 09:58 11/29/24 09:56 100 MLS/HR Sodium Chloride 10 ml QSHIFT@10,22 IV 11/20/24 10:00 11/29/24 09:59 10 ML Diagnostic Test (Pha) 1 strip Q6HR 11/24/24 00:00 11/29/24 12:11 1 STRIP Insulin Human Regular FOLLOW SLIDING SCALE Q6HR SC 11/24/24 00:00 11/28/24 13:05 4 UNITS Dextrose 50 ml UD IV 11/24/24 00:00 Labetalol HCl 10 mg Q2HPRN PRN IV 11/24/24 09:45 11/27/24 16:14 10 MG Amlodipine Besylate 10 mg DAILY PO 11/26/24 10:00 11/27/24 09:57 10 MG Prednisone 40 mg DAILY PO 11/27/24 10:00 12/02/24 09:59 11/29/24 09:57 40 MG Ipratropium [place] 0.5 mg Q6HWA [facility] 11/27/24 12:00 11/29/24 11:32 0.5 MG Levalbuterol HCl 0.625 mg Q6HWA [facility] 11/27/24 12:00 11/29/24 11:32 0.625 MG laboratory and microbiology Laboratory Tests 11/29/24 09:50 Test 11/29/24 09:50 Range/Units Serum Glucose 169 H 74-106 mg/dL Assessment/Plan Impression Acute hypoxemic respiratory failure Acute COPD exacerbation Pulmonary hypertension Substance abuse Patient seen and examined Events S/p extubation Low oxygen requirements On 1 liter nasal cannula No acute events Labs and imaging reviewed ABG reviewed Management Supplemental oxygen Titrate to maintain sats 90% or above Incentive spirometry Aspiration precautions Continue antibiotics F/u cultures Bronchodilators Monitor renal function Monitor electrolytes Supplement as needed Home oxygen evaluation prior to discharge Okay to discharge from pulmonary standpoint DVT prophylaxis Dietary Evaluation Review Recommendations by RD: Protein Supplementation Comments: 1) Initiate Paulie @ 1 pk bid. Flush 30 mL free H2O AC/PC 2) Initiate MVI @ 1 tb qd 3) Initiate vitamin C @ 500 mg bid and zinc sulfate @ 220 mg qd for 7-10 days 4) If patient remains NPO > 7 days, consider EN/TPN to meet at least 75% of estimated daily needs 5) If gut is preferred, agree with previous recommendation of Jevity 1.2 @ 60 mL/hr goal rate as tolerated. Initiate @ 20 mL/hr and increase by 10 mL Q4H as tolerated until goal rate is reached. Flush with 150 mL free H2O Q6H. TF regimen provides 1918 kcal, 85g Pro (including Paulie @ 1 pk bid), and 1762 mL free H2O (including flushes) per 24 hrs. TF rate will meet 100% estimated energy needs and ~77% estimated protein needs 6) Collect HbA1C 7) Advance to 60g CCHO diet when medically feasible, pending speech therapy approval 8) Follow-up with pulmonology Expected Outcomes/Goals: 1) patient to receive nutrition support within 7 days of NPO status 2) labs and wound to improve 3) diet to advance 4) f/u in 2-3 days Plan discussed with: Patient ADRIANA LOPEZ MD Nov 29, 2024 18:19
[2024-11-30] MEDS ORDERED: BUDE1AER5 IN (17:24)
== END 2024-11-29 19:20 | disposition home or self-care (01) | DRG 207 ==
LOC: EDBD 14:49 → ER 14:56 → OVERFLOW 18:06 → TELE-CENTR 22:22 → ICU WEST 11-19 08:42 → TELE-WESTW 11-27 17:44
PROVIDERS: ADMIT Nurse Practitioner Acute Care; ATTEND Nurse Practitioner Acute Care
PROC: 5A1955Z Respiratory Ventilation, Greater than 96 Consecutive Hours (ICD-10-PCS; principal; 2024-11-19)
PROC: 0BH17EZ Insertion of Endotracheal Airway into Trachea, Via Natural or Artificial Opening (ICD-10-PCS; 2024-11-19)
PROC: 02HV33Z Insertion of Infusion Device into Superior Vena Cava, Percutaneous Approach (ICD-10-PCS; 2024-11-20)
PROC: B548ZZA Ultrasonography of Superior Vena Cava, Guidance (ICD-10-PCS; 2024-11-20)
PROC: 5A0935A Assistance with Respiratory Ventilation, Less than 24 Consecutive Hours, High Flow/Velocity Cannula (ICD-10-PCS; 2024-11-24)
PROC: 5A09357 Assistance with Respiratory Ventilation, Less than 24 Consecutive Hours, Continuous Positive Airway Pressure (ICD-10-PCS; 2024-11-24)
PROC: 5A0935A Assistance with Respiratory Ventilation, Less than 24 Consecutive Hours, High Flow/Velocity Cannula (ICD-10-PCS; 2024-11-25)
PROC: 5A09357 Assistance with Respiratory Ventilation, Less than 24 Consecutive Hours, Continuous Positive Airway Pressure (ICD-10-PCS; 2024-11-25)
PROC: 5A0935A Assistance with Respiratory Ventilation, Less than 24 Consecutive Hours, High Flow/Velocity Cannula (ICD-10-PCS; 2024-11-26)
PROC: 5A0935A Assistance with Respiratory Ventilation, Less than 24 Consecutive Hours, High Flow/Velocity Cannula (ICD-10-PCS; 2024-11-27)
DX: J96.01 Acute respiratory failure with hypoxia (principal); J81.0 Acute pulmonary edema; J44.1 Chronic obstructive pulmonary disease with (acute) exacerbation; E87.4 Mixed disorder of acid-base balance; I16.9 Hypertensive crisis, unspecified; F10.139 Alcohol abuse with withdrawal, unspecified; F15.13 Other stimulant abuse with withdrawal; J96.02 Acute respiratory failure with hypercapnia; R00.0 Tachycardia, unspecified; F17.210 Nicotine dependence, cigarettes, uncomplicated; Z20.822 Contact with and (suspected) exposure to COVID-19; E87.5 Hyperkalemia; G43.909 Migraine, unspecified, not intractable, without status migrainosus; Y90.9 Presence of alcohol in blood, level not specified; I27.20 Pulmonary hypertension, unspecified; I34.2 Nonrheumatic mitral (valve) stenosis; Z71.6 Tobacco abuse counseling; Z82.49 Family history of ischemic heart disease and other diseases of the circulatory system; Z88.6 Allergy status to analgesic agent; Z79.899 Other long term (current) drug therapy
CPT/HCPCS: 36415; 36569; 36600; 70450; 71045; 76937; 80048; 80053; 80069; 80307; 80320; 81001; 82805; 82962; 83735; 83880; 84100; 84132; 84484; 85025; 85379; 85610; 85730; 87040; 87081; 87086; 87426; 87804; 93005; 93306; 93925; 94002; 94003; 94640; 94660; 96361; 96374; 97110; 97116; 97163; 97530; 99291; G0378; J1815; J2470; J2704; J3480